=== PATIENT | female | born 1950 | race Caucasian/White ===

== ENCOUNTER 2023-11-11 08:08 | Emergency (ER) | payer MEDICARE, SELFPAY ==
--- NOTE | ~2023-11-11 | CT_ITS ---
EXAMINATION: CT HEAD WITHOUT CONTRAST CT CERVICAL SPINE WITHOUT CONTRAST CLINICAL INFORMATION: 73-year-old female with dementia and fall in [facility] rule out fracture or bleed COMPARISON: None TECHNIQUE: CT of the head and cervical spine were performed without intravenous contrast. Multiplanar reformats were rendered and reviewed. This CT examination was performed using dose optimization techniques as appropriate, variously including the following: *Automated exposure control *Adjustment of mA and/or kV according to patient size (this includes techniques or standardized protocols for targeted exams where dose is matched to indication/reason for exam; i.e. extremities or head) *Use of iterative reconstruction technique DLP: 561 mGy-cm. FINDINGS: CT head: There is small subdural hematoma in the right parietal lobe, see images 37-53 series 5 No mass lesion or infarct is seen. Ventricles, sulci and cisterns are prominent due to global atrophy. There are patchy periventricular white matter changes as a sequela of microangiopathy. The visualized paranasal sinuses and mastoid air cells are clear. No evidence of fractures CT cervical spine: The cervical alignment is normal. The craniocervical junction is normal. There are multilevel degenerative changes in cervical spine with narrowing of C4-C5, C5-C6 627 intervertebral disc spaces and marginal spurring. No cervical spine fracture is seen. The paraspinal soft tissues are within normal limits. The partially imaged lung apices are clear. CT/CT head/brain wo IV con IMPRESSION: CT head: Small acute subdural hematoma along the right parietal lobe CT cervical spine: No cervical spine fracture or traumatic malalignment identified. Multilevel degenerative changes in cervical spine This critical result was discussed with Dr. Christiano Monahan at 11:05 AM on 11/11/2023 and it was ascertained that the content and urgency of the report was understood at the time of direct communication.
--- NOTE | ~2023-11-11 | CT_ITS ---
EXAMINATION: CT HEAD WITHOUT CONTRAST CT CERVICAL SPINE WITHOUT CONTRAST CLINICAL INFORMATION: 73-year-old female with dementia and fall in group home rule out fracture or bleed COMPARISON: None TECHNIQUE: CT of the head and cervical spine were performed without intravenous contrast. Multiplanar reformats were rendered and reviewed. This CT examination was performed using dose optimization techniques as appropriate, variously including the following: *Automated exposure control *Adjustment of mA and/or kV according to patient size (this includes techniques or standardized protocols for targeted exams where dose is matched to indication/reason for exam; i.e. extremities or head) *Use of iterative reconstruction technique DLP: 561 mGy-cm. FINDINGS: CT head: There is small subdural hematoma in the right parietal lobe, see images 37-53 series 5 No mass lesion or infarct is seen. Ventricles, sulci and cisterns are prominent due to global atrophy. There are patchy periventricular white matter changes as a sequela of microangiopathy. The visualized paranasal sinuses and mastoid air cells are clear. No evidence of fractures CT cervical spine: The cervical alignment is normal. The craniocervical junction is normal. There are multilevel degenerative changes in cervical spine with narrowing of C4-C5, C5-C6 627 intervertebral disc spaces and marginal spurring. No cervical spine fracture is seen. The paraspinal soft tissues are within normal limits. The partially imaged lung apices are clear. CT/CT cervical spine wo IV con IMPRESSION: CT head: Small acute subdural hematoma along the right parietal lobe CT cervical spine: No cervical spine fracture or traumatic malalignment identified. Multilevel degenerative changes in cervical spine This critical result was discussed with Dr. Christiano Monahan at 11:05 AM on 11/11/2023 and it was ascertained that the content and urgency of the report was understood at the time of direct communication.
[2023-11-11 08:12] VITALS: BP 125/72; BP 126/98; PULSE 67; PULSE 90; RESP 16; TEMP 36.6; O2SAT 96; O2SAT 969; BMI 22.4
[2023-11-11 08:26] VITALS: BP 125/72; PULSE 67; RESP 16; RESP 18; TEMP 36.6; O2SAT 96
--- NOTE | 2023-11-11 08:35 | PC.NURSE ---
patient arrives VIA EMS from [facility], per EMS staff went into patients room and patient was sitting on the floor next to her bed putting her shoes on, unknown if patient fell, unknown head strike, unknown LOC. patient states she wanted to put her shoes on so she sat on the floor to do so. per ems patient was recently discharged from hospital 2 weeks ago for altered mental status, has a history of dementia, brain bleed, and metabolic encepalopathy. patient arrives AxOx3, not offering any complaints at this time, no abrasions or bruising noted, no obvious deformities or injuries. respirations even and unlabored. denies any chest pain, dizziness, or headaches. patient states she usually uses a wheelchair to get around, and knows she should not be getting up on her own. patient moved from ED 1 to ED 22 for better visibility given fall risk and history of getting up. patient agreeable at this time to stay in bed and use call workman for any assistance. c collar placed by EMS r/t unknown mechanism of fall. patient noted to be incontinent of urine, pericare provided, patient placed in appropriate hospital attire, red socks and fall band placed. awaiting provider eval at this time
--- NOTE | 2023-11-11 08:59 | PC.NURSE ---
at bedside to toma
--- NOTE | 2023-11-11 09:01 | ED.FALL ---
HPI - Fall General Chief Complaint: Fall Stated Complaint: FALL FROM BED Time Seen by Provider: 11/11/23 08:55 Source: RN notes reviewed Mode of arrival: EMS Limitations: other (Patient has dementia and lacks insight as to why she has here in the emergency depart) History of Present Illness ED Provider: Dr. Christiano Monahan HPI Narrative: 73-year-old female with a history of dementia, metabolic encephalopathy, failure to thrive, subdural hematoma who was sent in from her assisted living facility, [facility] for evaluation of possible fall. There was no information provided from the assisted living facility information was obtained from the ED nursing note. Per EMS the patient was found sitting on the floor. Patient states she was trying to put her shoes on, she denied falling, denied loss of consciousness, denied head strike patient with history of dementia. At the time my evaluation the patient was oriented to person, she knew that she was in a nursing facility but lacks insight as to why she is here. She has no complaints. Related Data Allergies Allergy/AdvReac Type Severity Reaction Status Date / Time No Known Allergies Allergy Verified 11/11/23 08:22 [facility] Social History Social History Smoked in Last 30 Days: No Use of substances other than those prescribed or required for medical reasons: No Advance Directives: No Advance Directives Information Provided: Yes Do you have a plan to hurt others: No Plan Physical Exam Vital Signs: Vital Signs: Last Vital Signs Temp 97.9 F 11/11/23 08:26 Pulse 67 11/11/23 08:26 Resp 16 11/11/23 08:26 BP 125/72 11/11/23 08:26 Pulse Ox 96 11/11/23 08:26 O2 Del Method Room Air 11/11/23 08:26 BMI result Body Mass Index 22.4 Vital signs were normal. Exam: General: Awake, alert in no distress Head: Normocephalic, atraumatic EENT: PERRL, Lids normal, sclera normal, conjunctiva normal, nose normal , ears normal, throat without erythema or exudates Neck: Supple, tenderness palpation of cervical spine and left trapezius muscle, no spasm Lung: breath sounds symmetric, no wheezing, rales or rhonchi Chest: symmetric movement, nontender Heart: regular rate and rhythm, normal S1, S2 no murmurs or rubs Abdomen: soft, non-tender, nondistended, normal bowel sounds Back: no vertebral tenderness, no CVAT Extremities: no deformities, moves all extremities symmetrically Neuro: Awake, alert, oriented to person only, normal speech, cranial nerves intact, moves all extremities symmetrically Psych: Pleasant, cooperative Medical Decision Making Medical Decision Making [facility] Narrative: 73-year-old female with a history of dementia, metabolic encephalopathy, failure to thrive, subdural hematoma who presents emergency department for evaluation of an unwitnessed fall in her assisted living program. Patient has dementia and lacks insight as to why she has here in the emergency department. Patient's vital signs were normal. For physical examination did reveal cervical spine tenderness and tenderness palpation over the last her be these muscle. No obvious scalp hematomas or tenderness to her scalp with palpation. Differential diagnosis: ?Includes but is not limited to skull fracture, intracranial bleed, cervical fracture, neck sprain, trip and fall, electrolyte abnormalities, anemia, urine infection, arrhythmia Following evaluation was ordered:CBC, CMP, CK, lipase, urinalysis, 12 EKG Patient was initially treated with the following: Cardiac monitoring, pulse ox monitoring Course: 11:18 My interpretation patient's laboratory evaluation is as follows: CBC was normal. CMP was normal. Urinalysis was negative. I was contacted by the radiologist, the patient has a small subdural hematoma in the radiologist felt that the hematoma was acute. I did speak to the patient's son, Keena Montano . He states that the patient was recently at [facility] for similar presentation and was found to have a small subdural hematoma which did not require surgical intervention. Given this information, I do not think the patient needs be hospitalized at this time and can be discharged to her senior care facility. 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 Admission/Observation Consideration of admission/observation: Escalation of care including admission/observation considered Consult Healthcare Provider Management of the patient was discussed with: Jacquard Loom Weaver (Ralph radiologist, Dr. Dea Christensen) Lab Data [facility] Lab Attestation statement: I reviewed the patient's lab results. 11/11/23 09:49 11/11/23 09:49 Labs: Lab Results 11/11/23 11/11/23 Range/Units 09:49 10:13 WBC 7.4 (4.8-10.8) X10*3/uL RBC 4.62 (4.20-5.50) X10*6/uL Hgb 13.8 (12.0-16.0) g/dl Hct 41.2 (37.0-47.0) % MCV 89.2 (80.0-98.0) fL MCH 29.9 (27.0-33.0) pg MCHC 33.5 (31.0-35.0) g/dl RDW 12.2 (11.0-16.0) % Plt Count 246 (160-400) X10*3/uL MPV 10.2 (9.4-12.3) fL Immature Gran % (Auto) 0.3 (0.0-0.4) % Neut % (Auto) 76.6 H (45-73) % Lymph % (Auto) 17.7 L (20-40) % [place] % (Auto) 4.3 (2-11) % Eos % (Auto) 0.7 (0-4) % Baso % (Auto) 0.4 (0-2) % Lymph # (Auto) 1.3 (1.2-4.9) X10*3/uL [place] # (Auto) 0.3 (0.1-1.2) X10*3/uL Eos # (Auto) 0.1 (0.0-0.4) X10*3/uL Baso # (Auto) 0.0 (0.0-0.2) X10*3/uL Abs Immat Gran (auto) 0.02 (0.00-0.03) X10*3/uL Absolute Neuts (auto) 5.7 (2.0-8.3) x10*3/uL Absolute Nucleated RBC 0.000 (0.0-0.012) X10*3/uL Nucleated RBC % (auto) 0.0 (0.0-0.2) /100WBC Sodium 140 (135-145) mmol/L Potassium 4.0 (3.3-5.1) mmol/L Chloride 106 (96-108) mmol/L Carbon Dioxide 26 (22-29) mmol/L Anion Gap 12 (12-20) BUN 13 (9-16) mg/dL Creatinine 0.70 (0.5-1.4) mg/dL Estim Creat Clear Calc 63.6 Estimated GFR > 60 Random Glucose 95 (60-115) mg/dL Calcium 9.3 (8.4-10.2) mg/dL Total Bilirubin 0.5 (0.0-1.0) mg/dL AST 16 (5-31) U/L ALT 12 (0-31) U/L Alkaline Phosphatase 94 (39-117) U/L Total Creatine Kinase 63 (26-140) U/L Total Protein 7.1 (6.5-8.0) g/dL Albumin 4.1 (3.5-5.0) g/dL Lipase 17 (8-78) U/L Urine Color Yellow Urine Appearance Clear Urine pH 5.5 (5.0-9.0) Ur Specific [place] 1.020 (1.005-1.025) Urine Protein Negative (Neg-Trace) mg/dL Urine Glucose (UA) Negative (Negative) mg/dL Urine Ketones 40 (Negative) mg/dL Urine Blood Negative (Negative) Urine Nitrite Negative (Negative) Ur Leukocyte Esterase Negative (Negative) Independent Interpretation I performed an independent interpretation of an: EKG Interpretation: My interpretation patient's 12 EKG done at 09:36 hours is as follows: Normal sinus rhythm rate of 71, normal [place] interval, QRS duration QTC interval, Q-waves in lead 3 and AVF, no PACs, no PVCs, no significant T-wave abnormalities Radiology Impression Discussion of test interpretation with radiology: I have reviewed the radiologist's reading. Radiologist Impression: CT head/brain and cervical spine wo IV con IMPRESSION: CT head: Small acute subdural hematoma along the right parietal lobe CT cervical spine: No cervical spine fracture or traumatic malalignment identified. Multilevel degenerative changes in cervical spine This critical result was discussed with Dr. Christiano Monahan at 11:05 AM on 11/11/2023 and it was ascertained that the content and urgency of the report was understood at the time of direct communication. Dictated By: Dea Christensen MD Critical Care Time Critical Care Time Critical Care Time: Yes Total Critical Care Time: 35 Attestation: Critical Care: The patient was critically ill with a high probability of imminent or life threatening deterioration. I spent greater than 30 minutes of discontinuous time evaluating the patient,delivering critical care at the bedside, discussing and evaluating pertinent data with consultants. Critical care time does not include time spent performing separately billable procedures or teaching. Total time spent performing critical care was 35 minutes. Discharge Plan Discharge Clinical Impression: Fall, Subacute subdural hematoma Patient Disposition: Home, Self-Care Additional Instructions: Your blood work was normal Your EKG was unremarkable. Your urinalysis was normal as well. 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 The CT scan of your head without IV contrast did reveal a small subdural hematoma along the right parietal lobe of your brain. Based on my conversation with your son, this subdural hematoma is not new and you do not need to be hospitalized for this at this time. Continue taking medications as prescribed by your providers Follow-up with your doctor in 2 days. Please return to the emergency department if your symptoms get worse or if you develop any symptoms that are concerning to you. Print Language: Occitan
--- NOTE | 2023-11-11 09:13 | ECG_ITS ---
Test Reason : fall Blood Pressure : / mmHG Vent. Rate : 071 BPM Atrial Rate : 071 BPM P-R Int : 182 ms QRS Dur : 076 ms QT Int : 390 ms P-R-T Axes : -01 -22 008 degrees QTc Int : 423 ms Normal sinus rhythm Normal ECG No previous ECGs available Referred By: Christiano Monahan Electronically Signed By:GALILEA BARROS
--- OUTSIDE RECORDS SUMMARY | 2023-11-11 09:19 | XMS_ITS | Continuity of Care Document ---
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 about your company's policies on smoking. ??? Your workplace should have a policy smoking areas from nonsmoking areas. ??? Smoking areas should have a system for ventilating and cleaning the air. Where to find more information Centers for Disease Control and Prevention (CDC): https://www.cdc.gov/tobacco/ [place] [employer]: https://www.cancer.org [place] [employer]: https://www.heart.org Summary ??? Secondhand smoke is smoke that comes from burning tobacco. Secondhand smoke exposes you to the dangers of smoking, even if you are not the one smoking. ??? There is no safe level of secondhand smoke. Several chemicals in secondhand smoke are known to cause cancer. Secondhand smoke can also cause many other health problems. ??? To prevent exposure to secondhand smoke, do not smoke, discourage others from smoking, keep your home and car smoke-free, and avoid places where smoking is allowed. This information is not intended to replace advice given to you by your health care provider. Make sure you discuss any questions you have with your health care provider. Document Revised: 01/16/2020 Document Reviewed: 06/01/2018 [employer] Patient Education ?? 2021 [place]. 10/12/2021 16:11:39 Fall Prevention in the Home, Adult Fall Prevention in the Home, Adult Falls can cause injuries and can affect people from all age groups. There are many simple things that you can do to make your home safe and to help prevent falls. Ask for help when making these changes, if needed. What actions can I take to prevent falls? General instructions ??? Use good lighting in all rooms. Replace any light bulbs that burn out. ??? Turn on lights if it is dark. Use night-lights. ??? Place frequently used items in qkts-sm-mwtsm places. Lower the shelves around your home if necessary. ??? Set up furniture so that there are clear paths around it. Avoid moving your furniture around. ??? Remove throw rugs and other tripping hazards from the floor. ??? Avoid walking on wet floors. ??? Fix any uneven floor surfaces. ??? Add color or contrast paint or tape to grab bars and handrails in your home. Place contrasting color strips on the first and last steps of stairways. ??? When you use a stepladder, make sure that it is completely opened and that the sides are firmlylocked. Have someone hold the ladder while you are using it. Do not climb a closed stepladder. ??? Be aware of any and all pets. What can I do in the bathroom? Keep the floor dry. Immediately clean up any water that spills onto the floor. ??? Remove soap buildup in the tub or shower on a regular basis. ??? Use non-skid mats or decals on the floor of the tub or shower. ??? Attach bath mats securely with double-sided, non-slip rug tape. ??? If you need to sit down while you are in the shower, use a plastic, non-slip stool. ??? Install grab bars by the toilet and in the tub and shower. Do not use towel bars as grab bars. What can I do in the bedroom? Make sure that a bedside light is easy to reach. ??? Do not use oversized bedding that drapes onto the floor. ??? Have a firm chair that has side arms to use for getting dressed. What can I do in the kitchen? Clean up any spills right away. ??? If you need to reach for something above you, use a sturdy step stool that has a grab bar. ??? Keep electrical cables out of the way. ??? Do not use floor tunisian or wax that makes floors slippery. If you must use wax, make sure that it is non-skid floor wax. What can I do in the stairways? Do not leave any items on the stairs. ??? Make sure that you have a light switch at the top of the stairs and the bottom of the stairs. Have them installed if you do not have them. ??? Make sure that there are handrails on both sides of the stairs. Fix handrails that are broken or loose. Make sure that handrails are as long as the stairways. ??? Install non-slip stair treads on all stairs in your home. ??? Avoid having throw rugs at the top or bottom of stairways, or secure the rugs with carpet tape to prevent them from moving. ??? Choose a carpet design that does not hide the edge of steps on the stairway. ??? Check any carpeting to make sure that it is firmly attached to the stairs. Fix any carpet that is loose or worn. What can I do on the outside of my home? Use bright outdoor lighting. ??? Regularly repair the edges of walkways and driveways and fix any cracks. ??? Remove high doorway thresholds. ??? Trim any shrubbery on the main path into your home. ??? Regularly check that handrails are securely fastened and in good repair. Both sides of any steps should have handrails. ??? Install guardrails along the edges of any raised decks or porches. ??? Clear walkways of debris and clutter, including tools and rocks. ??? Have leaves, snow, and ice cleared regularly. ??? Use sand or salt on walkways during winter months. ??? In the garage, clean up any spills right away, including grease or oil spills. What other actions can I take? Wear closed-toe shoes that fit well and support your feet. Wear shoes that have rubber soles orlow heels. ??? Use mobility aids as needed, such as canes, walkers, scooters, and crutches. ??? Review your medicines with your health care provider. Some medicines can cause dizziness or changes in blood pressure, which increase your risk of falling. Talk with your health care provider about other ways that you can decrease your risk of falls. Thismay include working with a physical therapist or resident athletic trainer to improve your strength, balance, and endurance. Where to find more information ??? Centers for Disease Control and Prevention, [place]: https://www.cdc.gov ??? National [place] [employer] Aging: https://rg3aixn.jas.nih.gov Contact a health care provider if: ??? You are afraid of falling at home. ??? You feel weak, drowsy, or dizzy at home. ??? You fall at home. Summary ??? There are many simple things that you can do to make your home safe and to help prevent falls. ??? Ways to make your home safe include removing tripping hazards and installing grab bars in the bathroom. ??? Ask for help when making these changes in your home. This information is not intended to replace advice given to you by your health care provider. Make sure you discuss any questions you have with your health care provider. Document Revised: 04/07/2018 Document Reviewed: 12/08/2017 [employer] Patient Education ?? 2020 [employer] 10/12/2021 16:11:39 Confusion Confusion Confusion is the inability to think with your usual speed or clarity. Confusion can be caused by many things. People who are confused often describe their thinking as cloudy or unclear. Confusion canalso include feeling disoriented. This means you are unaware of where you are or who you are. You may also not know the date or time. When confused, you may have trouble remembering, paying attention, or making decisions. Some people also act aggressively when they are confused. In some cases, confusion may come on quickly. In other cases, it may develop slowly over time. Confusion may be caused by medical conditions such as: ??? Infections, such as a urinary tract infection (UTI). ??? Low levels of oxygen, which can develop from conditions such as long-term lung disorders. ??? Decrease in brain function due to dementia and other conditions that affect the brain, such as seizures, strokes, brain tumors, or head injuries. ??? Mental health conditions, like panic attacks, anxiety, depression, and hallucinations. Confusion may also be caused by physical factors such as: ??? Loss of fluid (dehydration) or an imbalance of salts and minerals in the body (electrolytes). ??? Lack of certain nutrients like niacin, thiamine, or other B vitamins. ??? Fever or hypothermia, which is a sudden drop in body temperature. ??? Low or high blood sugar. ??? Low or high blood pressure. Other causes include: ??? Lack of sleep or changes in routine or surroundings, such as when traveling or staying in a hospital. ??? Using too much alcohol, drugs, or medicine. ??? Side effects of medicines, or taking medicines that affect other medicines (drug interactions). Follow these instructions at home: Pay attention to your symptoms. Tell your health care provider about any changes or if you develop new symptoms. Follow these instructions to control or treat symptoms. Ask a family member or friend for help if needed. Medicines ??? Take nvuk-rcb-tinywga and prescription medicines only as told by your health care provider. ??? Ask your health care provider about changing or stopping any medicines that may be causing yourconfusion. ??? Avoid pain medicines or sleep medicines until you have fully recovered. ??? Use a pillbox or an alarm to help you take the right medicines at the right time. Lifestyle ??? Eat a balanced diet that includes fruits and vegetables. ??? Get enough sleep. For most adults, this is 7???9 hours each night. ??? Do not drink alcohol. ??? Do not become isolated. Spend time with other people and make plans for your days. ??? Do not drive until your health care provider says that it is safe to do so. ??? Do not use any products that contain nicotine or tobacco, such as cigarettes, e-cigarettes, andchewing tobacco. If you need help quitting, ask your health care provider. ??? Stop other activities that may increase your chances of getting hurt. These may include some work duties, sports activities, swimming, or bike riding. Ask your health care provider what activities are safe for you. Tips for caregivers ??? Find out if the person is confused. Ask the person to state his or her name, age, and the date.If the person is unsure or answers incorrectly, he or she may be confused and need assistance. ??? Always introduce yourself, no matter how well the person knows you. Remind the person of his orher location. ??? Place a calendar and clock near the person who is confused. Keep a regular schedule. Make sure the person has plenty of light during the day and sleep at night. ??? Talk about current events and plans for the day. ??? Keep the environment calm, quiet, and peaceful. ??? Help the person do the things that he or she is unable to do. These include: ??? Taking medicines. ??? Keeping medical appointments. ??? Helping with household duties, including meal preparation. ??? Running errands. ??? Get help if you need it. There are several support groups for caregivers. If the person you arehelping needs more support, consider day care, extended-care programs, or a care home facility. The person's health care provider may be able to help evaluate these options. General instructions ??? Monitor yourself for any conditions you may have. These can include: ??? Checking your blood glucose levels if you have diabetes. ??? Maintaining a healthy weight. ??? Monitoring your blood pressure if you have hypertension. ??? Monitoring your body temperature if you have a fever. ??? Keep all follow-up visits. This is important. Contact a health care provider if: ??? You have new symptoms or your symptoms get worse. Get help right away if you: ??? Feel that you are not able to care for yourself. ??? Develop severe headaches, repeated vomiting, seizures, blackouts, or slurred speech. ??? Have increasing confusion, weakness, numbness, restlessness, or personality changes. ??? Develop a loss of balance, have marked dizziness, feel uncoordinated, or fall. ??? Develop severe anxiety, or you have delusions or hallucinations. These symptoms may represent a serious problem that is an emergency. Do not wait to see if the symptoms will go away. Get medical help right away. Call your local emergency services (911 in the [place] Do not drive yourself to the hospital. Summary ??? Confusion is the inability to think with your usual speed or clarity. People who are confused often describe their thinking as cloudy or unclear. ??? Confusion can also include having trouble remembering, paying attention, or making decisions. ??? Confusion may come on quickly or develop slowly over time, depending on the cause. There are many different causes of confusion. ??? Ask for help from family members or friends if you are unable to take care of yourself. This information is not intended to replace advice given to you by your health care provider. Make sure you discuss any questions you have with your health care provider. Document Revised: 08/19/2020 Document Reviewed: 08/19/2020 [employer] Patient Education ?? 2021 [employer] 10/12/2021 16:11:39 Failure to Thrive, Adult, Tpap-bp-[id number] Failure to Thrive, Adult Failure to thrive is a group of symptoms that affect adults, including the elderly. These symptoms include eating too little and losing weight. People who have this may not want to be with friends, or they may not want to eat or drink. This condition is not a normal part of getting older. What are the causes? A disease, such as dementia, diabetes, cancer, or lung disease. ??? A health problem, such as a vitamin deficiency or a heart problem. ??? A disorder, such as sadness (depression). ??? A disability. ??? Medicines. ??? Having tooth or mouth problems. ??? Neglect or being treated badly. ??? In some cases, the cause may not be known. What are the signs or symptoms? Loss of more than 5% of your body weight. ??? Being more tired than normal after an activity. ??? Having trouble getting up after sitting. ??? Not feeling hungry. ??? Not getting out of bed. ??? Not wanting to do your normal activities. ??? Sadness. ??? Getting infections often. ??? Bedsores. ??? Taking a long time to get better after an infection, injury, or a surgery. ??? Weakness. How is this treated? Treatment for this condition depends on the cause. It may be treated by: ??? Treating a disease or disorder that is causing symptoms. ??? Having talk therapy or taking medicine to treat sadness. ??? Eating better, such as eating more often or taking nutritional supplements. ??? Changing or stopping a medicine. ??? Having physical or occupational therapy. It often takes a team of doctors to find the right treatment. Follow these instructions at home: ??? Take ytsr-rxy-ohnkitb and prescription medicines only as told by your doctor. ??? Eat a healthy diet. Make sure that you eat enough. Ask your doctor how much you should eat. ??? Be active. Do exercises that make you stronger (strength training). A physical therapist can help to set up a program that fits you. ??? Make sure that you are safe at home. ??? Have a plan for what to do if you cannot make decisions for yourself. Contact a doctor if you: ??? Are not able to eat well. ??? Are not able to move around. ??? Feel very sad. ??? Feel very hopeless. Get help right away if: ??? You think about ending your life. ??? You cannot eat or drink. ??? You do not get out of bed. ??? Staying at home is not safe. ??? You have a fever. Summary ??? Failure to thrive is a group of symptoms that affect adults, including the elderly. ??? Symptoms include eating too little and losing weight. ??? Take all medicines only as told by your doctor. ??? Eat a healthy diet. Make sure that you eat enough. Ask your doctor how much you should eat. ??? Be active. Do exercises that make you stronger. A physical therapist can help to set up a program that is right for you. This information is not intended to replace advice given to you by your health care provider. Make sure you discuss any questions you have with your health care provider. Document Revised: 12/26/2018 Document Reviewed: 12/26/2018 [employer] Patient Education ?? 2021 [employer] 10/09/2021 03:12:03 Wound Care, Adult Wound Care, Adult Taking care of your wound properly can help to prevent pain, infection, and scarring. It can also help your wound heal more quickly. Follow instructions from your health care provider about how to care for your wound. Supplies needed: ??? Soap and water. ??? Wound cleanser. ??? Gauze. ??? If needed, a clean bandage (dressing) or other type of wound dressing material to cover or place in the wound. Follow your health care provider's instructions about what dressing supplies to use. ??? Cream or ointment to apply to the wound, if told by your health care provider. How to care for your wound Cleaning the wound Ask your health care provider how to clean the wound. This may include: ??? Using mild soap and water or a wound cleanser. ??? Using a clean gauze to pat the wound dry after cleaning it. Do not rub or scrub the wound. Dressing care ??? Wash your hands with soap and water for at least 20 seconds before and after you change the dressing. If soap and water are not available, use hand combination machine tool operator. ??? Change your dressing as told by your health care provider. This may include: ??? Cleaning or rinsing out (irrigating) the wound. ??? Placing a dressing over the wound or in the wound (packing). ??? Covering the wound with an outer dressing. ??? Leave any stitches (sutures), skin glue, or adhesive strips in place. These skin closures may need to stay in place for 2 weeks or longer. If adhesive strip edges start to loosen and curl up, youmay trim the loose edges. Do not remove adhesive strips completely unless your health care providertells you to do that. ??? Ask your health care provider when you can leave the wound uncovered. Checking for infection Check your wound area every day for signs of infection. Check for: ??? More redness, swelling, or pain. ??? Fluid or blood. ??? Warmth. ??? Pus or a bad smell. Follow these instructions at home Medicines ??? If you were prescribed an antibiotic medicine, cream, or ointment, take or apply it as told by your health care provider. Do not stop using the antibiotic even if your condition improves. ??? If you were prescribed pain medicine, take it 30 minutes before you do any wound care or as told by your health care provider. ??? Take apmf-sce-wyygwcx and prescription medicines only as told by your health care provider. Eating and drinking ??? Eat a diet that includes protein, vitamin A, vitamin C, and other nutrient- rich foods to help the wound heal. ??? Foods rich in protein include meat, fish, eggs, dairy, beans, and nuts. ??? Foods rich in vitamin A include carrots and dark green, leafy vegetables. ??? Foods rich in vitamin C include citrus fruits, tomatoes, broccoli, and peppers. ??? Drink enough fluid to keep your urine pale yellow. General instructions ??? Do not take baths, swim, use a hot tub, or do anything that would put the wound underwater until your health care provider approves. Ask your health care provider if you may take showers. You mayonly be allowed to take sponge baths. ??? Do not scratch or pick at the wound. Keep it covered as told by your health care provider. ??? Return to your normal activities as told by your health care provider. Ask your health care provider what activities are safe for you. ??? Protect your wound from the sun when you are outside for the first 6 months, or for as long as told by your health care provider. Cover up the scar area or apply sunscreen that has an SPF of at least 30. ??? Do not use any products that contain nicotine or tobacco, such as cigarettes, e-cigarettes, andchewing tobacco. These may delay wound healing. If you need help quitting, ask your health care provider. ??? Keep all follow-up visits as told by your health care provider. This is important. Contact a health care provider if: ??? You received a tetanus shot and you have swelling, severe pain, redness, or bleeding at the injection site. ??? Your pain is not controlled with medicine. ??? You have any of these signs of infection: ??? More redness, swelling, or pain around the wound. ??? Fluid or blood coming from the wound. ??? Warmth coming from the wound. ??? Pus or a bad smell coming from the wound. ??? A fever or chills. ??? You are nauseous or you vomit. ??? You are dizzy. Get help right away if: ??? You have a red streak of skin near the area around your wound. ??? Your wound has been closed with alejandro, sutures, skin glue, or adhesive strips and it begins to open up and separate. ??? Your wound is bleeding, and the bleeding does not stop with gentle pressure. ??? You have a rash. ??? You faint. ??? You have trouble breathing. These symptoms may represent a serious problem that is an emergency. Do not wait to see if the symptoms will go away. Get medical help right away. Call your local emergency services (911 in the [place] Do not drive yourself to the hospital. Summary ??? Always wash your hands with soap and water for at least 20 seconds before and after changing your dressing. ??? Change your dressing as told by your health care provider. ??? To help with healing, eat foods that are rich in protein, vitamin A, vitamin C, and other nutrients. ??? Check your wound every day for signs of infection. Contact your health care provider if you suspect that your wound is infected. This information is not intended to replace advice given to you by your health care provider. Make sure you discuss any questions you have with your health care provider. Document Revised: 02/08/2020 Document Reviewed: 02/08/2020 [employer] Patient Education ?? 2021 [employer] 10/09/2021 03:12:03 Fall Prevention in the Home, Adult, Ddyx-mo-Akmr Fall Prevention in the Home, Adult Falls can cause injuries and can happen to people of all ages. There are many things you can do to make your home safe and to help prevent falls. Ask for help when making these changes. What actions can I take to prevent falls? General Instructions ??? Use good lighting in all rooms. Replace any light bulbs that burn out. ??? Turn on the lights in dark areas. Use night-lights. ??? Keep items that you use often in kcup-px-utdgb places. Lower the shelves around your home if needed. ??? Set up your furniture so you have a clear path. Avoid moving your furniture around. ??? Do not have throw rugs or other things on the floor that can make you trip. ??? Avoid walking on wet floors. ??? If any of your floors are uneven, fix them. ??? Add color or contrast paint or tape to clearly keila and help you see: ??? Grab bars or handrails. ??? First and last steps of staircases. ??? Where the edge of each step is. ??? If you use a stepladder: ??? Make sure that it is fully opened. Do not climb a closed stepladder. ??? Make sure the sides of the stepladder are locked in place. ??? Ask someone to hold the stepladder while you use it. ??? Know where your pets are when moving through your home. What can I do in the bathroom? Keep the floor dry. Clean up any water on the floor right away. ??? Remove soap buildup in the tub or shower. ??? Use nonskid mats or decals on the floor of the tub or shower. ??? Attach bath mats securely with double-sided, nonslip rug tape. ??? If you need to sit down in the shower, use a plastic, nonslip stool. ??? Install grab bars by the toilet and in the tub and shower. Do not use towel bars as grab bars. What can I do in the bedroom? Make sure that you have a light by your bed that is easy to reach. ??? Do not use any sheets or blankets for your bed that hang to the floor. ??? Have a firm chair with side arms that you can use for support when you get dressed. What can I do in the kitchen? Clean up any spills right away. ??? If you need to reach something above you, use a step stool with a grab bar. ??? Keep electrical cords out of the way. ??? Do not use floor tunisian or wax that makes floors slippery. What can I do with my stairs? Do not leave any items on the stairs. ??? Make sure that you have a light switch at the top and the bottom of the stairs. ??? Make sure that there are handrails on both sides of the stairs. Fix handrails that are broken or loose. ??? Install nonslip stair treads on all your stairs. ??? Avoid having throw rugs at the top or bottom of the stairs. ??? Choose a carpet that does not hide the edge of the steps on the stairs. ??? Check carpeting to make sure that it is firmly attached to the stairs. Fix carpet that is looseor worn. What can I do on the outside of my home? Use bright outdoor lighting. ??? Fix the edges of walkways and driveways and fix any cracks. ??? Remove anything that might make you trip as you walk through a door, such as a raised step or threshold. ??? Trim any bushes or trees on paths to your home. ??? Check to see if handrails are loose or broken and that both sides of all steps have handrails. ??? Install guardrails along the edges of any raised decks and porches. ??? Clear paths of anything that can make you trip, such as tools or rocks. ??? Have leaves, snow, or ice cleared regularly. ??? Use sand or salt on paths during winter. ??? Clean up any spills in your garage right away. This includes grease or oil spills. What other actions can I take? Wear shoes that: ??? Have a low heel. Do not wear high heels. ??? Have rubber bottoms. ??? Feel good on your feet and fit well. ??? Are closed at the toe. Do not wear open-toe sandals. ??? Use tools that help you move around if needed. These include: ??? Canes. ??? Walkers. ??? Scooters. ??? Crutches. ??? Review your medicines with your doctor. Some medicines can make you feel dizzy. This can increase your chance of falling. Ask your doctor what else you can do to help prevent falls. Where to find more information ??? Centers for Disease Control and Prevention, STEADI: www.cdc.gov ??? National [place] on Aging: www.jas.nih.gov Contact a doctor if: ??? You are afraid of falling at home. ??? You feel weak, drowsy, or dizzy at home. ??? You fall at home. Summary ??? There are many simple things that you can do to make your home safe and to help prevent falls. ??? Ways to make your home safe include removing things that can make you trip and installing grab bars in the bathroom. ??? Ask for help when making these changes in your home. This information is not intended to replace advice given to you by your health care provider. Make sure you discuss any questions you have with your health care provider. Document Revised: 11/26/2020 Document Reviewed: 11/26/2020 [employer] Patient Education ?? 2021 [place]. 10/09/2021 03:12:03 Fall Prevention in Hospitals, Adult Fall Prevention in Hospitals, Adult Being a patient in the hospital puts you at risk for falling. Falls can cause serious injury and harm, but they can be prevented. It is important to understand what puts you at risk for falling and what you and your health care team can do to prevent you from falling. If you or a loved one falls atthe hospital, it is important to tell hospital staff about it. What increases the risk for falls? Certain conditions and treatments may increase your risk of falling in the hospital. These include: ??? Being in an unfamiliar environment, especially when using the bathroom at night. ??? Having surgery. ??? Being on bed rest. ??? Taking many medicines or certain types of medicines, such as sleeping pills. ??? Having tubes in place, such as IV lines or catheters. Other risk factors for falls in a hospital include: ??? Having difficulty with hearing or vision. ??? Having a change in thinking or behavior, such as confusion. ??? Having depression. ??? Having trouble with balance. ??? Being a male. ??? Feeling dizzy. ??? Needing to use the toilet frequently. ??? Having fallen during the past three months. ??? Having low blood pressure. What are some strategies for preventing falls? If you or a loved one has to stay in the hospital: ??? Ask about which fall prevention strategies will be in place. Do not hesitate to speak up if younotice that the fall prevention plan has changed. ??? Ask for help moving around, especially after surgery or when feeling unwell. ??? If you have been asked to call for help when getting up, do not get up by yourself. Asking for help with getting up is for your safety, and the staff is there to help you. ??? Wear nonskid footwear. ??? Get up slowly, and sit at the side of the bed for a few minutes before standing up. ??? Keep items you need, such as the nurse call button or a phone, close to you so that you do not need to reach for them. ??? Wear eyeglasses or hearing aids if you have them. ??? Have someone stay in the hospital with you or your loved one. ??? Ask if sleeping pills or other medicines that can cause confusion are necessary. What does the hospital staff do to help prevent falls? Hospitals have systems in place to prevent falls and accidents, which may involve: ??? Discussing your fall risks and making a personalized fall prevention plan. ??? Checking in regularly to see if you need help. ??? Placing an arm band on your wrist or a sign near your room to alert other staff of your needs. ??? Using an alarm on your hospital bed. This is an alarm that goes off if you get out of bed and forget to call for help. ??? Keeping the bed in a low and locked position. ??? Keeping the area around the bed and bathroom well-lit and free from clutter. ??? Keeping your room quiet, so that you can sleep and be well-rested. ??? Using safety equipment, such as: ??? A belt around your waist. ??? Walkers, crutches, and other devices for support. ??? Safety beds, such as low beds or cushions on the floor next to the bed. ??? Having a staff person stay with you (one-on-one observation), even when you are using the bathroom. This is for your safety. ??? Using video monitoring. This allows a staff member to come to help you if you need help. What other actions can I take to lower my risk of falls? Check in regularly with your health care provider or pharmacist to review all of the medicines that you take. ??? Make sure that you have a regular exercise program to stay fit. This will help you maintain your balance. ??? Talk with a physical therapist or resident athletic trainer if recommended by your health care provider. They canhelp you to improve your strength, balance, and endurance. ??? If you are over age 65: ??? Ask your health care provider if you need a calcium or vitamin D supplement. ??? Have your eyes and hearing checked every year. ??? Have your feet checked every year. Where to find more information You can find more information about fall prevention from the Centers for Disease Control and Prevention: www.cdc.gov/steadi Summary ??? Being in an unfamiliar environment, such as the hospital, increases your risk for falling. ??? If you have been asked to call for help when getting up, do not get up by yourself. Asking for help with getting up is for your safety, and the staff is there to help you. ??? Ask about which fall prevention strategies will be in place. Do not hesitate to speak up if younotice that the fall prevention plan has changed. ??? If you or a loved one falls, tell the hospital staff. This is important. This information is not intended to replace advice given to you by your health care provider. Make sure you discuss any questions you have with your health care provider. Document Revised: 04/07/2018 Document Reviewed: 12/07/2017 [employer] Patient Education ?? 2020 [employer] 10/09/2021 03:12:03 Hand Washing, [id number] Hand Washing Germs such as bacteria, viruses, and parasites are everywhere. Many of these germs can make you andyour family sick. Wash your hands often so you do not get or share germs. How to wash your hands the right way When should I wash my hands? Wash your hands when they are dirty. ??? Wash your hands before: ??? You visit a baby or someone with a weak disease-fighting system (immunesystem). ??? You put in or take out contact lenses. ??? Wash your hands after: ??? You use the bathroom or help someone use the bathroom. ??? You sneeze, cough, or blow your nose. ??? You work or play outside. ??? You touch any of these things: ??? Garbage or garbage bags. ??? Something dirty in your home. ??? Money or someone else's hands. ??? Dirty clothes, bedding, or rags. ??? You use any of these things: ??? A mobile phone or other phone. ??? Quantitative Associate or chemicals. ??? You touch or take care of animals. This includes touching their food, poop (stool), toys, or leashes. ??? You do these things away from home: ??? Take a bus, train, taxi, or ride-share. ??? Go shopping, especially with a shopping cart or basket. ??? Wash your hands before and after: ??? You touch your eyes, nose, or mouth. ??? You touch food. This includes when: ??? You prepare or eat food. ??? You prepare a bottle for a baby or young child. ??? You feed a baby or young child. ??? You visit or take care of someone who is sick. This includes touching used tissues, toys, clothes, and bedding. ??? You change a bandage or diaper. ??? You take care of an injury or wound. ??? You give or take medicine. What is the right way to wash my hands? 1. Wet your hands with clean, running water. Turn off the water or move your hands out of the water. 2. Put liquid soap or bar soap on your hands. 3. Rub your hands together fast to make suds. 4. Keep rubbing your hands together for at least 20 seconds. Scrub all parts of your hands well, both the fronts and backs. Scrub between your fingers and under your nails. 5. Rinse your hands with clean, running water. Do this until all the soap is gone. 6. Dry your hands. Do this with an air dryer or a clean paper or cloth towel, or let your hands air-dry. Do not dry your hands with your clothes or a dirty towel. If you are in a public restroom, use your towel to: ??? Turn off the water faucet. ??? Open the bathroom door. How can I clean my hands if I do not have soap and water? If you cannot use soap and clean water, use a hand-washing wipe, spray, or gel (hand combination machine tool operator). Use one that has at least 60% alcohol in it. Avoid using wipes, sprays, or gels in place of soap and water before you touch food. To use wipes, sprays, or gels, follow the directions on the product bottle, tube, or wrapper. Be sure to: ??? Use enough product to cover your hands. ??? Wipe, rub, or spray the product on all parts of your hands and wrists. Include the backs of your hands, between your fingers, and under your nails. ??? Rub your hands until they feel dry. Summary ??? Germs such as bacteria, viruses, and parasites are everywhere. ??? Many germs can make you and your family sick. ??? You should wash your hands often so you do not get or share germs. This information is not intended to replace advice given to you by your health care provider. Make sure you discuss any questions you have with your health care provider. Document Revised: 09/01/2020 Document Reviewed: 09/01/2020 Else[employer] Patient Education ?? 2021 [place]. 10/09/2021 03:12:03 [facility] (Eng) Admission Orientation (Custom) [address] [address] Admission Orientation Welcome to the [facility]. Together we will work to keep you well and teach you how to care for yourself. We will explain what to expect before, during and after your treatments andprocedures. You are a very important part of this. Please ask questions whenever you have concerns. While you are here, you will be getting education on many other topics that will be specific to your disease and treatments. Here are some important things that everyone needs to know about upon admission to our unit: CALL LIGHT The call light is on your television speaker and should be within your reach at all times. Use the call light to call your nurse when you have a question, concern, need help or need pain medication. There is also an Emergency Call Light in the Bathroom next to the toilet. BED CONTROLS Your bed controls are located on each of the side rails of your bed. You can move your head and feet up or down to make yourself more comfortable unless your doctor orders a certain position. Push the up or down arrow with the picture of the head to change the position of the head. Push the up or down arrow with the picture of the foot to change the position of the foot of the bed. TELEPHONE The telephone is located on the nightstand next to your bed. You must first dial 9 and then the number you wish to call. Our area code is 480. If you need to make a long distance call, you must dial ?? 0??? for the hospital mottle lay up operator to help you. [employer] TELEVISION / SERVICE REQUESTS We are pleased to provide you with [employer] interactive televisions. [employer] offers [employer] movies, relaxation videos, educational programming, digital television and radio, and much more. You will find all the controls for the system located on your pillow speaker. [employer] can also be used to request services during your stay. You may change the temperature in your room, request housekeeping, report a mechanical problem, request the visit of a oracle specialist, or provide us with your valuable feedback through this interactive system. The T.V. controls are also located on your pillow speaker. To turn it on, change channels or turn it off, press the button with the T.V. on it. Use the up and down arrows to change the volume. FALL PREVENTION WHILE IN THE HOSPITAL Your safety is important to us while you are in the hospital. Any hospitalized patient has a greater chance of falling than normal regardless of age. Please follow your nurse and physician???s instructions to reduce your risk of falling while you are in the hospital: VISITING HOURS We understand you want to visit your loved ones when it is convenient for you. Therefore, the hospital is open to visitors 24 hours a day, 7 days a week. During cold and flu season, we do restrict visitors as needed. VISITATION ??? You have the right to determine the individuals that will visit you during your hospitalization. You also may withdraw your consent for visitors at any time. ??? Visitation will not be restricted or limited on the basis of race, color, national origin, voodoo, sex, gender identity, sexual orientation, or disability. ??? You may designate a support person who will determine who may visit when you are unable or choose not to make that determination. This person may be different from your legal or healthcare power of privacy attorney. ??? Visitation will be restricted if it interferes with your care, the care of other patients, or for infection control reasons. NUTRITION/MEALS Your safety, health and nutrition are very important to us.?? Our cafeteria has a wide selection offoods for your family and visitors.?? We encourage you to use our in-room meal services and not eatin the cafeteria.?? Our food service clerk team is happy to work with you on your food choices and requests.?? Your doctor may want you to eat a specific diet and record what you eat and drink.?? Your nurse may be able to give you a Cafeteria Pass if you have no restrictions.?? For your safety, our cafeteria staff is not allowed to serve patients without a Cafeteria Pass signed by the nurse. RAISING CONCERNS/COMPLAINTS REGARDING YOUR CARE OR SAFETY You and your family are encouraged to raise concerns or complaints if you have them. Exercising your right to do this will not affect your healthcare services in any way. ??? If at anytime you have concerns about patient care or safety, please speak to the supervisor mold construction or Strap Machine Operator Automatic. ??? If they are unable to resolve your concern/complaint, you can call the Customer Communication line at [phone] or go to the contact section of our website at [employer]. ??? If your concerns are not satisfactorily resolved through the hospital, you may contact the Joint Commission or the Department of [facility] Services: ?? The Joint Commission: Mc or email [email or web address] ?? [facility] Services: [address] [place] [address] Website: [email or web address] FAMILY RAPID RESPONSE is a lifeline to immediate help when a patient or loved one feels the patient???s condition has worsened and the caregiver needs to provide additional, immediate medical attention. Dial [phone] from any hospital phone. PAIN MANAGEMENT Be familiar with the pain scale. A pain scale is a number scale to measure your pain. A rating of 0means you feel no pain at all, 5 means you feel a moderate amount of pain, and 10 means you feel the worst pain you can imagine. Your nurse or physician will teach you to describe the type and amountof pain you are having. 0 1 2 3 4 5 6 7 8 9 10 No Moderate Worst Pain Pain Pain Talk to your doctor or nurse if you: ??? are in pain ??? have questions about controlling your pain ??? have taken pain medicine and it is not working At [facility], we will work with you and your family to manage your pain. We believe that managing your pain is an important part of your care. PREVENTING INFECTION Five things you can do to prevent infection (such as colds, flu and strep throat). A Speak Up safety initiative by Joint Commission on Accreditation of Healthcare Organizations 1. Clean your hands. ??? Use soap and warm water. Wet hands and apply soap. Rub your hands really well for at least 15 seconds. Rinse and dry. Use paper towel to turn water off. ??? Or, if your hands do not look dirty, clean them with alcohol-based hand sanitizers. Rub the combination machine tool operator all over your hands, especially under your nails and between your fingers, until your hands are dry. Children should be supervised when using this product. ??? Clean your hands before touching or eating food. Clean them after you use the bathroom, take out the trash, change a diaper, visit someone who is ill, or play with a pet. Visitors and family members of patients should wash/clean their hands before entering the room to visit and any time they leave the room. 2. Make sure health care providers clean their hands and wear gloves. ??? Doctors, nurses, dentists and other health care providers come into contact with lots of bacteria and viruses. So before they treat you, ask them if they've cleaned their hands. ??? Health care providers should wear clean gloves when they perform tasks such as taking throat cultures, pulling teeth, taking blood, touching wounds or body fluids, and examining your private parts. Don't be afraid to gently remind them to wear gloves. 3. In the hospital, health care workers use ???barriers?? like gloves to protect the patients and themselves. ??? While in the hospital a patient may have a specific germ that can be spread to others. These germs can be viruses or bacteria that cause illness. ??? Some diseases and/or conditions require the use of additional barriers, like gowns and/or masksand Isolation Precautions. ??? Comply with additional isolation precautions. ??? Signs are posted on/at patient doors when additional precautions are needed. ??? All patients, visitors and staff are asked to follow the instructions posted on/at the patient door. ??? Please ask your nurse if you have additional questions. ??? Patients and families in isolation should not use the common kitchen area, but should ask health care workers for items that they need. 4. Cover your mouth and nose. Many diseases are spread through sneezes and coughs. When you sneeze or cough, the germs can travel 3 feet or more! Cover your mouth and nose to prevent the spread of infection to others. ??? Use a tissue! Keep tissues handy at home, at work and in your pocket. Be sure to throw away used tissues and then clean your hands. ??? If you don't have a tissue, cover your mouth and nose with the bend of your elbow or hands. If you use your hands, wash/clean them right away. 5. If you are sick, avoid close contact. ??? If you are sick, stay away from other people. Stay home if you have a fever. Call work or school and tell them you are sick. ??? When you go for medical treatment, call ahead and ask if there's anything you can do to avoid infecting people in the waiting room. These steps can help prevent the spread of colds, the flu, and diseases like pneumonia, and strep throat. Remember to stay current on your immunizations. PREVENTING BLOOD CLOTS AND VENOUS THOMBOEMBOLISM (VTE) What is thromboembolism? Blood flow is slower when the body is not active. This can cause clots to form in the blood. A blood clot in a blood vessel is called a thrombus. If the clot breaks loose and plugs another vessel, itis called thromboembolism. The blood clot can cause permanent injury to your body if it is not treated. Deep vein thrombosis (DVT) is a blood clot in one of the deep veins of the body, such as the leg orpelvis. This kind of clot can occur after surgery or long periods of bed rest. What are the signs and symptoms of deep vein thrombosis? Pain felt deep in the leg ??? Swelling and discoloration of the skin ??? Sudden onset of pain ??? Fever Pulmonary embolism (PE) is a serious condition where the arteries from the heart to the lungs are blocked. This happens when a blood clot travels to the lungs. Pulmonary embolism can be deadly, but quick treatment with anti-clotting medications can reduce the risk of . Preventing blood clots in your legs can help protect you against pulmonary embolism. What are the signs and symptoms of pulmonary embolism? Chest pain: May get worse with deep breathing, coughing, eating, and bending. ??? Cough: Begins suddenly, may cough up blood or blood-streaked sputum ??? Rapid breathing ??? Rapid heart rate ??? Shortness of breath, may occur at rest or during activity, starts suddenly Why is prevention important? Preventing clots is easier than treating them after they have happened. A blood clot can break off from the deep vein and travel to the lungs or other important organs. A blood clot can block blood flow to the tissues and ulcers or sores can result. How are deep vein thrombosis (DVT) and pulmonary embolus (PE) prevented? Wear compression stockings (GUICHO hose) if your doctor recommends them. These keep blood from pooling in your veins. ??? Wear a sleeve-like device on your legs (SCDs) after surgery to squeeze your legs and keep bloodflowing through your veins. The squeezing motion is similar to how your muscles squeeze your veins during normal walking. ??? Elevate the foot of your bed. ??? Get up and move as soon as you can after surgery, or after you've been ill. The quicker you getmoving, the less likely blood clots will develop. ??? Take pain medicine as prescribed to make it easier to move around. ??? If you're having surgery, such as orthopedic surgery, you may be given blood thinners or anticoagulant (anti-clotting) medicines. These medicines make the blood less able to clot and are sometimes called ???blood thinners???. They can block the formation of new clots and stop existing clots from getting bigger. ??? Exercise your muscles if you'll be sitting a long time. Whenever possible, get up and walk around. If you can't get up to walk around, try to exercise the feet by flexing, extending and rotating the foot. ??? Make lifestyle changes. Lose weight, quit smoking and control your blood pressure. Obesity, smoking and high blood pressure all increase your risk of deep vein thrombosis. ??? Limit the amount of salt you eat. Eat a high protein, low fat diet. ??? Do not wear constrictive clothing or stockings Call your doctor if you have: ??? Pain in the leg ??? Tenderness in the calf (this is one of the most important signs) ??? Swelling of the leg ??? Increased warmth of the leg ??? Redness in the leg ??? Bluish skin discoloration ??? Discomfort when the foot is pulled upward ??? Chest pain and/or cough ??? Rapid breathing ??? Rapid heart rate ??? Shortness of breath FROM THE TOOLING SUPERVISOR Spiritual Care Services providing emotional and spiritual support At [facility], we are committed to providing comprehensive care by embracing the whole person in body, mind and spirit. Board certified chaplains are available Tuesday - Tuesday 8 a.m.- 10:30 p.m. and Weekends 8 a.m. ??? 4:30 p.m. to all patients and their families to offer support across a wide array of diverse shivani traditions. Call Spiritual Care Services ??? To help you cope with feelings associated with diagnosis and treatment ??? If you find yourself asking ???why?? questions ??? For Sacramental needs, ritual and prayer ??? For grief and bereavement counseling ??? If you have discovered new possibilities in your life ??? During time of /loss ??? When you are struggling with forgiveness ??? To coordinate and collaborate with your shivani leader ??? To assist in decision making ??? To assist with advanced health care planning To contact a oracle specialist, ask your nurse to call Spiritual Care Services Department: Rotor Pilot: [phone] Licensed Plumber: [phone] We???re here to support your shivani, beliefs and values. STROKE/TIA(TRANSISCHEMIC ATTACK) INFORMATION If you have been diagnosed with a Stroke or TIA: 1. Call 911 immediately if you experience signs or symptoms of stroke as: ??? Sudden weakness or numbness of face, arms and leg usually on one side of the body. ??? Loss of vision, particularly in only one eye. ??? Sudden severe headache with no known cause. ??? Sudden trouble walking, dizziness, loss of balance or coordination, slurred speech. 2. Risk factors for stroke: ??? Age: The older you get the more likely you are to have a stroke. ??? Sex: and [place] men have a higher risk. ??? Prior Stroke: Already having a stroke makes you more likely to have another. ??? Family history: Family (parent, grandparents, brother, sister) with a history of stroke increases your risk. ??? You can control, treat or prevent some conditions to reduce your likelihood of stroke. High blood pressure, cigarette smoking, high cholesterol, Lack of regular physical activity, overweight, diabetes are all risk factors that can be changed. Cigarette Smoking Do you or someone you??live with??smoke??? If so, this is one of your??greatest health risk!?? Thisis a risk that you can control. The facts are clear that cigarette smoking will shorten your life. Smoking can cause many illnesses along the way. If you or someone you live with need help to quit smoking, talk to your regular doctor. Please contact one or more of the following agencies for smoking-cessation information or classes: ??? [facility] Tobacco Use Prevention Program- Telephone number: [phone] ??? [place] Smokers' Helpline:[phone] or access via website: [employer]G ??? [employer] Telephone number: [phone] ??? [employer] Follow Up Care 10/08/2021 19:05:00 With:Nohemi Milton DO Address: [address] [place] [id number]- When:1 to 3 days
--- OUTSIDE RECORDS SUMMARY | 2023-11-11 09:19 | XMS_ITS | Continuity of Care Document ---
Author Organization [facility] [place] Address [address] [place] [address]- Care Team Providers Care Solid Waste Manager Name Role Phone PCP, No Primary Care Physician Unavailab le Encounter EVSA_FIN [id number] Date(s): 10/12/21 - 10/29/21 [facility] [place] [address] [facility] [place] [address]- Encounter Diagnosis Acute intracranial hemorrhage(Discharge Diagnosis) - 10/15/21 Chronic subdural hematoma(Discharge Diagnosis) - 10/30/21 Gait instability(Discharge Diagnosis) - 10/29/21 Decreased oral intake(Discharge Diagnosis) - 10/29/21 Discharge Disposition: Home or Self Care Attending Physician: Jessica Leavitt MD Admitting Physician: Jessica Leavitt MD Allergies, Adverse Reactions, Alerts No Known Medication Allergies Substance Reaction Severity Status Valentine NAUSEA Mild Active Wheat Nausea Mild Active Assessment and Plan Extracted from: Title:Neuropsychology Consultation Author:Janneth Montenegro PsyD Date:10/16/21 Inpatient Neuropsychological Consultation Report Name: Saqib Mckeon : 1950 Sex: Female Age: 71 years Handedness: Right Education: 16 years Referring Physician: Jessica Leavitt MD Date of Evaluation: 10/14/2021& 10/16/2021 PROCEDURES: [id number] x 1 [id number] x 1 [id number] x 1 10/14/2021--Start time: 1:32 p.m. End time: 1:40 p.m. *Consultation had to be discontinued as the patient was scheduled for OT. 10/16/2021? Start time: 1:27 p.m. End time: 1:58 p.m. In addition to direct time spent during the clinical interview, neuropsychological test administration, and integrative feedback to the patient and/or caregivers, total time also includes the licensed psychologist? s time spent for chart review, scoring, interpretation of findings, coordination of care with staff and providers, and report preparation. History of present illness: According to medical records, the patient was admitted to the rehabilitation facility due to metabolic encephalopathy and concussion. The patient presented to [facility] after a GLF in which she sustained multiple subdural hematomas, primary one being a small R sided subdural hematoma without mass effect. The patient was noted to have superimposed delirium and metabolic encephalopathy with a baseline of potential cognitive impairment. For a comprehensive medical history and medication list, please refer to the patient? s chart. This patient was referred for a neuropsychological consultation to obtain a quantitative assessment of her current level of cognitive and emotional/behavioral functioning and aid in the formulation of individualized rehabilitation and management strategies. The facility is requesting the results be used to provide counseling, aid in adjustment to disability, and provide compensatory cognitive and behavioral techniques. I met with the patient alone in their private room on 10/16/2021 to complete the neuropsychology consultation initiated on 10/14/2021 to obtain clinical history, administer cognitive testing, and to provide support and psychoeducation. The patient provided verbal consent to participate in the evaluation after introduction and reason for consult was provided. The patient? s son was present for the initial encounter on 10/14/2021 with obtained verbal consent from the patient and assisted with providing and confirming background information. The patient? s son flew back to [place] on 10/14/2021. Current Symptoms: Cognitive: The patient did not report any changes in cognition following the fall. The patient? s son noted there has been evidence of cognitive decline over the past year with more noticeable decline after the recent fall. ADLs: The patient was independent in grooming/personal hygiene, dressing, toileting/continence, transferring/ambulating, and eating prior to the fall. The patient does not drive and noted her son assists with her finances. Emotional/Behavioral: The patient described her mood as ? bruna? . She did not report any issues with depression or anxiety. There was no report of current or past suicidal ideation, hallucinations, or delusions. Appetite is adequate. Sleep: No issues with sleep were noted. Pain: No issues with pain were noted. Substance use: The patient reported she does not consume alcohol, nor does not use tobacco products or recreational drugs. Social/Educational: The patient was born and raised in [place]. The patient earned a bachelor? 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 The patient has 2 sons (1 resides in [place] and the other in [place]). The patient reportedly lived alone prior to the fall. Her son mentioned they were considering moving her to [place] to live in a 24-hour care facility near his home. The patient stated she spends her time on [employer]. Behavioral Observations: The patient was pleasant in demeanor. Mood was generally euthymic with congruent affect. The patient was observed to have rapid memory loss and attentional issues as she would ask what was said nearly immediately after the question/instruction was given with no apparent recollection of what had just been said. She also had difficulty comprehending task instructions and required questions or instructions to be repeated often. The patient perseverated on her experience at the rehabilitation facility and repeatedly expressed her satisfaction with her experience thus far. She also commented frequently on her son who resides in [place] and how he has a new baby and other topics. She was tangential in her approach to answers and would ask for clarity of questions or instructions when needed, however, despite the instructions or question being repeated, she would continue to demonstrate difficulty with comprehension of what was said. The patient would provide answers that were not appropriate to the content discussed and would require redirection or repetition of the question/instruction. Speech was slightly slurred and halted in nature. She had delayed response latency as she appeared to have a slowed speed of processing. She was also observed to become distracted easily with her computer screen in the room that had family photos on it and also would appear to have ? zoning out? moments that resulted in her asking what had been said as she did not hear it. Volume of speech was normal. Modifications were made to the battery due to exhibited cognitive and language issues. The patient was cooperative throughout the examination and completed all administered tasks to which she was capable. Tests administered: Cognistat, Oral Ferguson Making Test-Parts A and B, Clock Drawing Task, Geriatric Depression Scale 15 (GDS15), and clinical interview. Evaluation Findings: Mental Status: The patient was awake and alert. She was not oriented to age (?), date (?), day of the week (Tuesday), and time (?). Cognitive Screening: Attention: The patient was able to sustain basic attention. She was able to repeat up to 4 digits forward, which was in the moderately impaired range. She completed a task assessing sustained attention in 24 seconds, which was in the exceptionally low range (T-score<20). Executive Functioning: A sequential set-shifting task was discontinued as the patient had difficulty understanding task instructions. The patient performed in the moderately impaired range on a basic arithmetic task. Performance was in the severely impaired range for tasks requiring basic concept formation/abstraction and basic judgment/problem-solving ability. Language: The patient was able to name 7/8 objects on a confrontation naming task. She identified 1 additional item with the aid of a phonemic cue. Sentence repetition was in the mildly impaired range. She was able to follow up to 1-step verbal and imitation commands with difficulty. Learning/Memory: The memory subtest on the Cognistat was discontinued due to the patient being unable to successfully recall the 4 words 2 consecutive times after 8 trials. This suggests memory is severely impaired. Visuospatial Functioning: On the clock drawing test, the patient? s drawing included all necessary numbers. Placement was poor and as a result she was unable to draw the clock hands. Emotional/Behavioral: The patient? s responses on the GDS-15 yielded a total score of 0/15, which indicates they are not experiencing depressive symptoms. Impression: On my examination, the patient demonstrated diffuse cognitive impairment across cognitive domains. Given the patient is suspected to have prior cognitive impairment in addition to superimposed delirium and metabolic encephalopathy in conjunction with a recent head injury, it is difficult to determine the level of cognitive decline from her premorbid level of functioning. The patient would benefit from continued participation in rehabilitative therapies to assist with achieving cognitive gains during her recovery process, which will hopefully be demonstrated over the coming weeks and months. Further evaluation is warranted as there is suspicion for a possible emerging neurodegenerative process given the floor level performance on cognitive tasks and behavioral presentation. The patient expressed motivation to participate in therapies and has a strong support network, which provide hope for a positive recovery outcome. The patient? s course should continue to be monitored for any further change in cognition and/or mood. The results can serve as a baseline for future comparison. Diagnosis: Unspecified Neurocognitive Disorder Recommendations: 1. Continued participation in rehabilitative therapies is recommended. The patient would benefit from learning compensatory strategies to aid in improving overall cognition. 2. Follow up with Neurology for additional evaluation to assess for a possible emerging neurodegenerative process. 3. Medication review may be considered to determine if the patient is an appropriate candidate for a memory medication. 4. Referral for outpatient neurorehabilitation may be considered if cognitive issues persist following discharge. [facility] provide these services. 5. The patient may consider a referral for an outpatient occupational therapy evaluation to assist with improving functioning of day-to-day tasks and work- related duties if cognitive issues persist following discharge. Taniya Cruz OTR/L ([phone]) is an occupational therapist with [facility] who specializes in memory compensation training for survivors of brain injury or other neurological impairments and development of strategies to compensate for residual memory and cognitive impairment in home, work, and school settings. 6. Continued monitoring of ADLs and safety is recommended. The patient and their family are encouraged to keep an open dialogue pertaining to the patient? s ability to manage daily tasks. This will allow the patient and their family the ability to recognize when and if increased assistance may be needed. 7. The patient and their family may consider purchasing a medical alert device to ensure they are able to contact the appropriate personnel in case of an emergency. 8. The [facility] has a Family Caregiver Support Program that provides case management, respite care, support groups and other assistance. They can perform a no cost in-home evaluation if deemed necessary. For more information, the patient? s family can call [phone] to ask for a referral for the Family Caregiver Support Program (www.[employer].org). 9. The patient was encouraged to increase participation in cognitively and socially stimulating activities. The patient may find word searches, puzzles, crosswords, or handheld games enjoyable, which can be found at a local general store. Reminiscing activities can also be pleasurable for individuals. For instance, focusing on pleasant activities/events from one? s past, such as significant events (best birthday, weddings, etc.), favorite memories from each season, favorite place to vacation, school days, sports, are topics to consider among others. [employer]ily [employer] is a [employer] that provides in-home services for cognitive stimulation and counseling needs (www.[employer]; ). 10. The patient may consider participating in individual psychotherapy if they find they are having a difficult time managing depression and anxiety related to any possible lifestyle adjustments/disability. b. [facility]) can provide such services and accepts most insurance plans including Medicare. i. [phone] 11. The patient is encouraged to continue participation in cognitively and socially stimulating activities for overall health and well-being. 12. The patient? s son stated he plans to fly the patient out to [place] and was inquiring about medical clearance to do so. He was encouraged to speak with the patient? s medical team regarding the inquiry. c. The patient? s son was recommended to take the patient on a trial outing (e.g., grocery store) to assess her emotional response to crowded and potentially over stimulating environments (e.g., airport) to determine what measures may be needed to improve her level of comfort during the flight. 13. Compensatory tools can be implemented to assist with improving functioning in day-to-day and work environments. The patient and those interacting with them may find these strategies helpful: d. Using a calendar to reference important dates e. Setting alarms or reminders for upcoming events or appointments f. Ensure her attention is captured before presenting information and use cues to help regain her focus when she has gone off task g. Ask the patient to repeat information back out loud h. The patient should also be encouraged to take her time when performing tasks to avoid making mistakes or missing important steps i. Breaking tasks into smaller chunks/steps j. Talking out loud during tasks can help her to follow the task through to completion k. Using checklists may aid in providing reminders to follow all necessary steps for specific tasks l. She may also schedule time blocks for specific tasks that require more attention m. Take breaks when needed to allow for mental rest. 14. The patient may find the following resources helpful: n. [facility] www.[employer].org 15. A follow up neuropsychological evaluation 3-6 months post discharge may be considered if cognitive issues persist. [facility] ([phone]) provide such services in [place], [place]. 16. I will follow up with this patient, during the patient's inpatient stay, on an as needed basis. Thank you for including me in the care of this patient. Janneth Guajardo Psy.D., Clinical Neuropsychologist Extracted from: Title:Neuro Consultation Author:Claudia Minor MD Date:10/15/21 Impression and Plan Diagnosis Diagnosis . Acute intracranial hemorrhage ([id number] I62.9, Discharge, Medical). Plan: 1. Subdural Hematoma - New condition, stable - Causing metabolic Encephalopathy + TBI + Concussion - Superimposed hospital acquired delirium - Patient is not quite at baseline - Potential cognitive impairment at baseline. - Airplane travel poses risks for recurrent strokes due to low oxygen content on board a plane. However, as patient had a hemorrhage and not a stroke, there are no concerns with flying aggravating her symptoms. As such. this patient is CLEARED to travel by airplane after discharge. . Pt Care Time: Total face to face time with patient 45 mins, Consultation/coordination of care time 25 mins, Greater than 50% face to face time spent counseling/coordinating care. Problem list: All Problems Chronic subdural hematoma / [id number] / Confirmed Canceled: Past medical history unknown / [id number]. Extracted from: Title:Neuropsychology Encounter Author:Janneth Guajardo PsyD Date:10/14/21 This provider attempted to m eet with the patient for neuropsychological consultation on 10/14/2021 but the session was ended early due to OT therapy being scheduled for that time. This provider will make another attempt to meet with the patient. Thank you for including me in the care of this patient. Janneth Guajardo Psy.D., Clinical Neuropsychologist Medications Colace 100 mg oral capsule 1 Cap Cap, PO, BID, PRN, as needed for constipation, Qty: 20 Cap, Refills: 0, Maintenance, Route toPharmacy Electronically, [id number] Start Date: 10/28/21 Status: Ordered Pepcid 20 mg oral tablet 1 Tab Tab, PO, BID, Qty: 60 Tab, Refills: 0, Maintenance, Route to Pharmacy Electronically, [id number] Start Date: 10/28/21 Status: Ordered Problem List Condition Effective Dates Status Health Status Inform ant Chronic subdural hematoma(Confirmed) Active Results Laboratory List Name Date CBC w/Diff* (man diff if indicated) 10/27 Comprehensive Metabolic Panel 10/27/21 CBC w/Diff* (man diff if indicated) 10/20 Comprehensive Metabolic Panel 10/20/21 Urinalysis UA Rflx Microscop Cult if Ind 10/20/21 zUrinalysis Microscopic 10/20/21 Urinalysis UA Rflx Microscop Cult if Ind 10/13/21 CBC w/Diff* (man diff if indicated) Comprehensive Metabolic Panel 10/13/21 Most recent to oldest [Reference Range]: 1 2 3 Urine WBCs [None per HPF] 5-10 per HPF *ABN* (10/20/21 1:58 AM) CBC Scan Auto Diff 1 *NA* (10/27/21 6:12 AM) Auto Diff 2 *NA* (10/20/21 4:31 AM) Auto Diff 3 *NA* (10/13/21 5:06 AM) Lymphs [10.0-55.0 %] 35.9 % (10/27/21 6:12 AM) 20.6 % (10/20/21 4:31 AM) 20.5 % (10/13/21 5:06 AM) Monos. [0.0-15.0 %] 6.3 % (10/27/21 6:12 AM) 7.5 % (10/20/21 4:31 AM) 5.8 % (10/13/21 5:06 AM) Baso. [0.0-3.0 %] 1.0 % (10/27/21 6:12 AM) 0.7 % (10/20/21 4:31 AM) 0.9 % (10/13/21 5:06 AM) Neuts [35.0-80.0 %] 55.5 % (10/27/21 6:12 AM) 70.5 % (10/20/21 4:31 AM) 71.7 % (10/13/21 5:06 AM) Eos. [0.0-9.0 %] 1.3 % (10/27/21 6:12 AM) 0.7 % (10/20/21 4:31 AM) 1.1 % (10/13/21 5:06 AM) Glucose Level [70-99 mg/dL] 82 mg/dL (10/27/21 6:12 AM) 73 mg/dL (10/20/21 4:31 AM) 78 mg/dL (10/13/21 5:06 AM) UA Squam Epithelial [0-10 per HPF] 0-10 per HPF *NA* (10/20/21 1:58 AM) Urine Culture if Indicated Not Indicated 4 *NA* (10/20/21 1:58 AM) Not Indicated 5 *NA* (10/13/21 10:14 AM) AST [5-34 Units/L] 17 Units/L (10/27/21 6:12 AM) 18 Units/L (10/20/21 4:31 AM) 27 Units/L (10/13/21 5:06 AM) ABS Neut [1.7-8.6 thousand/uL] 2.7 thousand/uL (10/27/21 6:12 AM) 4.6 thousand/uL (10/20/21 4:31 AM) 3.9 thousand/uL (10/13/21 5:06 AM) eGFR Non- Am >60 mL/min/1.73m2 *NA* (10/27/21 6:12 AM) >60 mL/min/1.73m2 *NA* (10/20/21 4:31 AM) >60 mL/min/1.73m2 *NA* (10/13/21 5:06 AM) eGFR Afr/Amer >60 mL/min/1.73m2 *NA* (10/27/21 6:12 AM) >60 mL/min/1.73m2 *NA* (10/20/21 4:31 AM) >60 mL/min/1.73m2 *NA* (10/13/21 5:06 AM) A/G Ratio [0.8-1.6] 0.9 (10/27/21 6:12 AM) 1.5 (10/20/21 4:31 AM) 1.0 (10/13/21 5:06 AM) ABS Baso [0.0-0.3 thousand/uL] 0.0 thousand/uL (10/27/21 6:12 AM) 0.0 thousand/uL (10/20/21 4:31 AM) 0.0 thousand/uL (10/13/21 5:06 AM) ABS Eos [0.0-1.0 thousand/uL] 0.1 thousand/uL (10/27/21 6:12 AM) 0.0 thousand/uL (10/20/21 4:31 AM) 0.1 thousand/uL (10/13/21 5:06 AM) ABS Lymph [0.5-5.9 thousand/uL] 1.7 thousand/uL (10/27/21 6:12 AM) 1.4 thousand/uL (10/20/21 4:31 AM) 1.1 thousand/uL (10/13/21 5:06 AM) ABS [place] [0.0-1.6 thousand/uL] 0.3 thousand/uL (10/27/21 6:12 AM) 0.5 thousand/uL (10/20/21 4:31 AM) 0.3 thousand/uL (10/13/21 5:06 AM) Albumin [3.4-5.0 gm/dL] 2.9 gm/dL *L* (10/27/21 6:12 AM) 3.0 gm/dL *L* (10/20/21 4:31 AM) 2.7 gm/dL *L* (10/13/21 5:06 AM) Alkphos [40-150 Units/L] 94 Units/L (10/27/21 6:12 AM) 92 Units/L (10/20/21 4:31 AM) 98 Units/L (10/13/21 5:06 AM) ALT [0-55 Units/L] 21 Units/L (10/27/21 6:12 AM) 30 Units/L (10/20/21 4:31 AM) 33 Units/L (10/13/21 5:06 AM) Anion Gap [5-15] 14 (10/27/21 6:12 AM) 10 (10/20/21 4:31 AM) 12 (10/13/21 5:06 AM) Appearance [Clear] Clear (10/20/21 1:58 AM) Clear (10/13/21 10:14 AM) Bili Total [0.2-1.2 mg/dL] 0.2 mg/dL (10/27/21 6:12 AM) 0.4 mg/dL (10/20/21 4:31 AM) 0.4 mg/dL (10/13/21 5:06 AM) BUN [10-20 mg/dL] 27 mg/dL *H* (10/27/21 6:12 AM) 14 mg/dL (10/20/21 4:31 AM) 9 mg/dL *L* (10/13/21 5:06 AM) Chloride [98-107 mmol/L] 102 mmol/L (10/27/21 6:12 AM) 103 mmol/L (10/20/21 4:31 AM) 104 mmol/L (10/13/21 5:06 AM) CO2 [23-31 mmol/L] 29 mmol/L (10/27/21 6:12 AM) 31 mmol/L (10/20/21 4:31 AM) 27 mmol/L (10/13/21 5:06 AM) Color [Yellow] Straw (10/20/21 1:58 AM) Straw (10/13/21 10:14 AM) Creatinine [0.57-1.11 mg/dL] 0.59 mg/dL (10/27/21 6:12 AM) 0.49 mg/dL *L* (10/20/21 4:31 AM) 0.51 mg/dL *L* (10/13/21 5:06 AM) Globulin [2.5-4.1 gm/dL] 3.2 gm/dL (10/27/21 6:12 AM) 2.0 gm/dL *L* (10/20/21 4:31 AM) 2.7 gm/dL (10/13/21 5:06 AM) Hct [37.0-47.0 %] 37.8 % (10/27/21 6:12 AM) 37.5 % (10/20/21 4:31 AM) 38.4 % (10/13/21 5:06 AM) Hgb [11.5-16.0 gm/dL] 12.8 gm/dL (10/27/21 6:12 AM) 12.8 gm/dL (10/20/21 4:31 AM) 13.2 gm/dL (10/13/21 5:06 AM) MCH [27.0-34.0 pg] 31.1 pg (10/27/21 6:12 AM) 30.9 pg (10/20/21 4:31 AM) 30.9 pg (10/13/21 5:06 AM) MCHC [32.0-37.0 gm/dL] 33.9 gm/dL (10/27/21 6:12 AM) 34.0 gm/dL (10/20/21 4:31 AM) 34.4 gm/dL (10/13/21 5:06 AM) MCV [80.0-100.0 fL] 91.9 fL (10/27/21 6:12 AM) 90.8 fL (10/20/21 4:31 AM) 89.8 fL (10/13/21 5:06 AM) Plt [130-400 thousand/uL] 298 thousand/u L (10/27/21 6:12 AM) 243 thousand/uL (10/20/21 4:31 AM) 179 thousand/uL (10/13/21 5:06 AM) Protein, Total [6.4-8.3 gm/dL] 6.1 gm/dL *L* (10/27/21 6:12 AM) 5.0 gm/dL *L* (10/20/21 4:31 AM) 5.4 gm/dL *L* (10/13/21 5:06 AM) RBC [4.00-5.40 million/uL] 4.12 million/ uL (10/27/21 6:12 AM) 4.13 million/uL (10/20/21 4:31 AM) 4.28 million/uL (10/13/21 5:06 AM) RDW [11.5-16.0 %] 15.1 % (10/27/21 6:12 AM) 14.9 % (10/20/21 4:31 AM) 14.5 % (10/13/21 5:06 AM) UEpi, Renal [0-2 per HPF] 0-2 per HPF *NA* (10/20/21 1:58 AM) Sodium [134-144 mmol/L] 140 mmol/L (10/27/21 6:12 AM) 140 mmol/L (10/20/21 4:31 AM) 138 mmol/L (10/13/21 5:06 AM) Specific [place] [1.008-1.020] 1.006 *L* (10/20/21 1:58 AM) 1.011 (10/13/21 10:14 AM) UBilirubin [Negative] Negative (10/20/21 1:58 AM) Negative (10/13/21 10:14 AM) UBlood [Negative] Negative (10/20/21 1:58 AM) Negative (10/13/21 10:14 AM) UGlucose [Negative] Negative (10/20/21 1:58 AM) Negative (10/13/21 10:14 AM) UKetones [Negative] Negative (10/20/21 1:58 AM) Negative (10/13/21 10:14 AM) ULeukocyte Esterase [Negative] Trace *ABN* (10/20/21 1:58 AM) Negative (10/13/21 10:14 AM) UNitrite [Negative] Negative (10/20/21 1:58 AM) Negative (10/13/21 10:14 AM) UpH [5.0-8.0] 9.0 *H* (10/20/21 1:58 AM) 8.0 (10/13/21 10:14 AM) UProtein [Negative] Negative (10/20/21 1:58 AM) Negative (10/13/21 10:14 AM) URBC [0-4 per HPF] 0-4 per HPF *NA* (10/20/21 1:58 AM) WBC [4.8-10.8 thousand/uL] 4.9 thousand/ uL (10/27/21 6:12 AM) 6.5 thousand/uL (10/20/21 4:31 AM) 5.4 thousand/uL (10/13/21 5:06 AM) Potassium [3.5-5.1 mmol/L] 4.8 mmol/L (10/27/21 6:12 AM) 4.5 mmol/L (10/20/21 4:31 AM) 4.9 mmol/L (10/13/21 5:06 AM) Calcium [8.4-10.2 mg/dL] 8.9 mg/dL (10/27/21 6:12 AM) 8.4 mg/dL (10/20/21 4:31 AM) 8.2 mg/dL *L* (10/13/21 5:06 AM) 1Result Comment: Verified by Discern 2Result Comment: Verified by Discern 3Result Comment: Verified by Discern 4Result Comment: Urine Culture not ordered due to one or more of the following conditions: *Patient Age >=2 *UA WBC <10 *The always cultured indication reason chosen was not: Urological Procedure Immunosuppressed Organ Donor 5Result Comment: Urine Culture not ordered due to one or more of the following conditions: *Patient Age >=2 *UA WBC <10 *The always cultured indication reason chosen was not: Urological Procedure Immunosuppressed Organ Donor Vital Signs Most recent to oldest [Reference Range]: 1 2 3 4 5 6 7 8 9 10 Temperature PO [36-37.5 deg C] 36.3 deg C (10/29/21 7:00 AM) 36.7 deg C ( 2 6:00 AM) 35.9 deg C *L* ( 2 7:28 PM) 36.6 deg C ( 2 7:00 AM) 36 deg C ( 2 6:00 AM) 36.4 deg C ( 2 6:00 AM) 35.8 deg C *L* ( 2 6:20 PM) 36.6 deg C ( 2 5:00 AM) 36.0 deg C ( 2 9:15 PM) 35.6 deg C *L* ( 5:30 AM) Temp Tympanic [36-37.5 deg C] 36.6 deg C (10/14/21 6:00 AM) Temperature Rectal [36-37.5 deg C] 36.6 deg C (10/26/21 6:00 AM) Temperature Temporal Artery [36.4-37.5 deg C] 37.1 deg C (10/28/21 6:00 PM) 36.9 deg C ( 2 6:00 PM) 36.8 deg C ( 2 6:00 PM) 37.0 deg C ( 2 6:00 PM) 37.0 deg C ( 2 6:00 PM) 37.1 deg C ( 2 6:00 PM) 36.7 deg C ( 2 5:00 AM) 37 deg C (6/13/2 2 5:00 AM) Heart Rate [51-119 bpm] 68 bpm (10/29/21 7:00 AM) 89 bpm (2 2 6:00 PM) 62 bpm (10/28/2 2 6:00 AM) 81 bpm (10/27/2 2 7:28 PM) 59 bpm (10/27/2 2 7:00 AM) 92 bpm (10/26/2 2 6:00 PM) 72 bpm (10/26/2 2 6:00 AM) 76 bpm (10/25/2 2 10:05 PM) 91 bpm (10/25/2 2 6:00 PM) 67 bpm ( 6:00 AM) Blood Pressure [91-139/51-89 mm Hg] 104/52mm Hg (10/29/21 7:00 AM) 94/58mm Hg (10/28/2 2 6:00 PM) 115/67m m Hg (2 2 6:00 AM) 111/66m m Hg (10/27/2 2 7:28 PM) 108/59m m Hg (10/27/2 2 7:00 AM) 103/60m m Hg (10/26/2 2 6:00 PM) 108/64m m Hg (10/26/2 2 6:00 AM) 116/64m m Hg (10/25/2 2 10:05 PM) 108/62m m Hg (10/25/2 2 6:00 AM) 112/67 mm Hg ( 6:20 PM) Resp Rate (Monitor) [13-20 Breaths/Min] 18 Breaths/M in (10/29/21 7:00 AM) 16 Breaths /Min (10/28/2 2 6:00 PM) 20 Breaths /Min (10/28/2 2 6:00 AM) 18 Breaths /Min (10/27/2 2 7:28 PM) 20 Breaths /Min (10/27/2 2 7:00 AM) 16 Breaths /Min (10/26/2 2 6:00 PM) 20 Breaths /Min (10/26/2 2 6:00 AM) 16 Breaths /Min (10/25/2 2 6:00 PM) 16 Breaths /Min ( 2 6:00 AM) 20 Breath s/Min ( 6:20 PM) SPO2 [92 %] 98 % (10/29/21 7:00 AM) 94 % ( 2 6:00 PM) 98 % ( 2 6:00 AM) 96 % ( 2 7:28 PM) 99 % ( 2 7:00 AM) 96 % ( 2 6:00 PM) 98 % ( 2 6:00 AM) 95 % ( 2 6:00 PM) 98 % ( 2 6:00 AM) 98 % ( 6:20 PM) Oxygen Method Room air (10/27/21 7:28 PM) Room air ( 2 10:05 PM) Room air ( 2 5:00 AM) Room air ( 2 5:00 AM) Room air (2 2 6:00 PM) Room air ( 2 5:00 AM) Room air ( 2 8:00 PM) Room air ( 2 5:00 AM) Room air ( 2 6:00 PM) Room air ( 5:00 AM) Glucose Level [70-99 mg/dL] 82 mg/dL (10/27/21 6:12 AM) 73 mg/dL ( 2 4:31 AM) 78 mg/dL (10/13/21 5:06 AM) Height 147.32 cm (10/12/21 5:45 PM) Drug Calc Weight (kg) 35.9 kg (10/12/21 5:45 PM) Weight Method Actual (10/12/21 5:45 PM) BMI 16.54 kg/m2 (10/12/21 5:45 PM) Bed alarm on No (10/29/21 12:00 PM) No ( 2 10:00 AM) No ( 2 8:00 AM) Social History Social History Type Response Smoking Status Never (less than 100 in lifetime) entered on: 10/09/21 Sex Hospital Discharge Instructions Patient Education 10/29/2021 12:47:30 Stroke Prevention, Myur-fp-Gtlk Stroke Prevention Some medical conditions and lifestyle choices can lead to a higher risk for a stroke. You can help to prevent a stroke by eating healthy foods and exercising. It also helps to not smoke and to manageany health problems you may have. How can this condition affect me? A stroke is an emergency. It should be treated right away. A stroke can lead to brain damage or threaten your life. There is a better chance of surviving and getting better after a stroke if you get medical help right away. What can increase my risk? The following medical conditions may increase your risk of a stroke: ??? Diseases of the heart and blood vessels (cardiovascular disease). ??? High blood pressure (hypertension). ??? Diabetes. ??? High cholesterol. ??? Sickle cell disease. ??? Problems with blood clotting. ??? Being very overweight. ??? Sleeping problems (obstructivesleep apnea). Other risk factors include: ??? Being older than age 60. ??? A history of blood clots, stroke, or mini-stroke (TIA). ??? Race, ethnic background, or a family history of stroke. ??? Smoking or using tobacco products. ??? Taking control pills, especially if you smoke. ??? Heavy alcohol and drug use. ??? Not being active. What actions can I take to prevent this? Manage your health conditions ??? High cholesterol. ??? Eat a healthy diet. If this is not enough to manage your cholesterol, you may need to take medicines. ??? Take medicines as told by your doctor. ??? High blood pressure. ??? Try to keep your blood pressure below 130/80. ??? If your blood pressure cannot be managed through a healthy diet and regular exercise, you may need to take medicines. ??? Take medicines as told by your doctor. ??? Ask your doctor if you should check your blood pressure at home. ??? Have your blood pressure checked every year. ??? Diabetes. ??? Eat a healthy diet and get regular exercise. If your blood sugar (glucose) cannot be managed through diet and exercise, you may need to take medicines. ??? Take medicines as told by your doctor. ??? Talk to your doctor about getting checked for sleeping problems. Signs of a problem can include: ??? Snoring a lot. ??? Feeling very tired. ??? Make sure that you manage any other conditions you have. Nutrition ??? Follow instructions from your doctor about what to eat or drink. You may be told to: ??? Eat and drink fewer calories each day. ??? Limit how much salt (sodium) you use to 1,500 milligrams (mg) each day. ??? Use only healthy fats for cooking, such as olive oil, canola oil, and sunflower oil. ??? Eat healthy foods. To do this: ??? Choose foods that are high in fiber. These include whole grains, and fresh fruits and vegetables. ??? Eat at least 5 servings of fruits and vegetables a day. Try to fill one-half of your plate withfruits and vegetables at each meal. ??? Choose low-fat (lean) proteins. These include low-fat cuts of meat, chicken without skin, fish,tofu, beans, and nuts. ??? Eat low-fat dairy products. ??? Avoid foods that: ??? Are high in salt. ??? Have saturated fat. ??? Have trans fat. ??? Have cholesterol. ??? Are processed or pre-made. ??? Count how many carbohydrates you eat and drink each day. Lifestyle ??? If you drink alcohol: ??? Limit how much you have to: ??? 0???1 drink a day for women who are not . ??? 0???2 drinks a day for men. ??? Know how much alcohol is in your drink. In the [place] one drink equals one 12 oz bottle of beer (355mL), one 5 oz glass of wine (148mL), or one 1?? oz glass of hard liquor (44mL). ??? Do not smoke or use any products that have nicotine or tobacco. If you need help quitting, ask your doctor. ??? Avoid secondhand smoke. ??? Do not use drugs. Activity ??? Try to stay at a healthy weight. ??? Get at least 30 minutes of exercise on most days, such as: ??? Fast walking. ??? Biking. ??? Swimming. Medicines ??? Take ytlz-ssk-qiremca and prescription medicines only as told by your doctor. ??? Avoid taking control pills. Talk to your doctor about the risks of taking control pills if: ??? You are over 35 years old. ??? You smoke. ??? You get very bad headaches. ??? You have had a blood clot. Where to find more information ??? [place] [employer]: www.strokeassociation.org Get help right away if: ??? You or a loved one has any signs of a stroke. BE FAST is an easy way to remember the warning signs: ??? B - Balance. Dizziness, sudden trouble walking, or loss of balance. ??? E - Eyes. Trouble seeing or a change in how you see. ??? F - Face. Sudden weakness or loss of feeling of the face. The face or eyelid may droop on one side. ??? A - Arms. Weakness or loss of feeling in an arm. This happens all of a sudden and most often onone side of the body. ??? S - Speech. Sudden trouble speaking, slurred speech, or trouble understanding what people say. ??? T - Time. Time to call emergency services. Write down what time symptoms started. ??? You or a loved one has other signs of a stroke, such as: ??? A sudden, very bad headache with no known cause. ??? Feeling like you may vomit (nausea). ??? Vomiting. ??? A seizure. These symptoms may be an emergency. Get help right away. Call your local emergency services ([address] [facility] [place] ??? Do not wait to see if the symptoms will go away. ??? Do not drive yourself to the hospital. Summary ??? You can help to prevent a stroke by eating healthy, exercising, and not smoking. It also helps to manage any health problems you have. ??? Do not smoke or use any products that contain nicotine or tobacco. ??? Get help right away if you or a loved one has any signs of a stroke. This information is not intended to replace advice given to you by your health care provider. Make sure you discuss any questions you have with your health care provider. Document Revised: 11/24/2020 Document Reviewed: 11/24/2020 [employer] Patient Education ?? 2021 [employer]. 10/29/2021 12:47:27 Hand Washing, Rvgy-rk-Slkb Hand Washing Germs such as bacteria, viruses, [...] A mobile phone or other phone. ??? [employer]ician or chemicals. ??? You touch or take [...] a hand-washing wipe, spray, or gel (hand reed or wind instrument tuner). Use one that has at least 60% [...] provider. Document Revised: 09/01/2020 Document Reviewed: 09/01/2020 [employer] Patient Education ?? 2021 [employer]. 10/29/2021 12:47:26 Fall Prevention in the Home, Adult, Vrmk-ya-Bicu Fall Prevention in the Home, Adult Falls [...] Keep items that you use often in edqv-ig-sxlva places. Lower the shelves around your home [...] the way. ??? Do not use floor kosovan or wax that makes floors slippery. What [...] Control and Prevention, [place]: www.cdc.gov ??? National [place] on Aging: www.jas.nih.gov Contact a doctor if: [...] provider. Document Revised: 11/26/2020 Document Reviewed: 11/26/2020 [employer] Patient Education ?? 2021 [employer] Follow Up Care 10/12/2021 17:33:56 With:Clinic Follow up Address:Unknown When:1 to 3 days Comments:neurology With:Follow up with primary care provider Address:Unknown When:1 to 3 days
--- OUTSIDE RECORDS SUMMARY | 2023-11-11 09:19 | XMS_ITS | Continuity of Care Document ---
Author Organization [facility] Address [address] [place] [address]- Care Team Providers Care Wharf Builder Name Role Phone PCP, No Primary Care Physician Unavailab le Encounter EVSA_FIN [id number] Date(s): 10/19/21 - 10/20/21 [facility] [address] [place], [place] [address]RUST [phone] Discharge Disposition: Home or Self Care Attending Physician: Channing Odell MD Allergies, Adverse Reactions, Alerts No Known Medication Allergies Substance Reaction Severity Status [place] NAUSEA Mild Active Wheat Nausea Mild Active Medications NO HOME MEDICATIONS NO HOME MEDICATIONS, Refills: 0, 10/12/21 17:47:00 MST, Maintenance Start Date: 10/12/21 Status: Ordered Problem List Condition Effective Dates Status Health Status Inform ant Chronic subdural hematoma(Confirmed) Active Social History Social History Type Response Smoking Status Never (less than 100 in lifetime) entered on: 10/09/21 Sex
--- OUTSIDE RECORDS SUMMARY | 2023-11-11 09:19 | XMS_ITS | Continuity of Care Document ---
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 11/06/2021 [facility] [place],[facility] Altered mental status (finding) 10/28/2021 [facility] Intracranial hemorrhage (disorder) 11/06/2021 [facility] [place] Subdural hemorrhage - nontraumatic (disorder) 11/06/2021 [facility] [place] Unsteadiness present (finding) 11/06/2021 [facility] [place] General symptoms (context-dependent category) 11/06/2021 [facility] [place] Metabolic encephalopathy (disorder) 10/20/2021 [facility] Concussion with loss of consciousness (disorder) 10/20/2021 [facility] Deficiency of macronutrients (disorder) 10/20/2021 [facility] Recurrent falls (finding) 10/20/2021 [facility] Medications Medication Details Route Status Patient Instructions Ordering Provider Order Date Source Famotidine 20 MG Oral Tablet [Pepcid] 1 Tab Tab, PO, BID, Qty: 60 Tab, Refills: 0, Maintenance, Route to Pharmacy Electronically , [id number] Active 2021 [facility] [place] Lorazepam 0.5 MG Oral Tablet [Ativan] 1 Tab Tab, PO, Daily, PRN, as needed for anxiety, 5 Day, Qty: 5 Tab, Refills: 0, 11/02/21 20:34:00 MST, Acute, Route to Pharmacy Electronically , [facility]/pharmacy #[id number] Inactive 2021 [facility] [place] Docusate Sodium 100 MG Oral Capsule [Colace] 1 Cap Cap, PO, BID, PRN, as needed for constipation, Qty: 20 Cap, Refills: 0, Maintenance, Route to Pharmacy Electronically , [facility]/pharmacy #[id number] Active 2021 [facility] [place] Senokot 17.2 mg, Tab, PO, qHS, Refills: 0, Maintenance Active 2021 [facility] Famotidine 20 MG Oral Tablet [Pepcid] 1 Tab Tab, PO, BID, Refills: 0, Maintenance Active 2021 [facility] Colace 100 mg, Liquid, PO, BID, Refills: 0, Maintenance Active 2021 [facility] NO HOME MEDICATIONS NO HOME MEDICATIONS, Refills: 0, 10/12/21 17:47:00 MST, Maintenance Active 2021 [facility] Acetaminophen 650 mg, PO, Tab, q4hr Priority: Routine PRN Pain Mild (1-3), Start: 10/09/21 2:20:00 MSTNotes: NTE 4 gms of Acetaminophen in 24 hrs C: Pain Medication; I: Pain; SE: hypotension Inactive 2021 [facility] Ketorolac 15 mg, IV Push, INJ, q6hr Routine PRN Pain Moderate (4-6), pts >65 yo, <50 kg, or renal dysfunction (Scr greater than 1.5 mg/dl), for 5 Day, Start: 10/09/21 2:20:00 MST, Stop: 10/14/21 2:19:00 MSTNotes: Note dose, age, renal function, duration C: Anti-inflammat ory (NSAID); I: Pain Control; SE: heartburn, nausea Inactive 2021 [facility] Allergies, Adverse Reactions, Alerts Substance Category Reaction Severity Reaction type Status Date Reported Comments Source [place] Assertion NAUSEA Mild Food allergy Active [facility] Wheat Assertion Nausea Mild Food allergy Active [facility] Results Order Name Results Value Reference Range Date Interpretation Comments Source Urinalysis Color Straw (10/20/21 1:58 AM) 10/20 [facility] Urinalysis Appearance Clear (10/20/21 1:58 AM) 10/20 [facility] Urinalysis UGlucose Negative (10/20/21 1:58 AM) 10/20 [facility] Urinalysis UBilirubin Negative (10/20/21 1:58 AM) 10/20 [facility] Urinalysis UKetones Negative (10/20/21 1:58 AM) 10/20 [facility] Urinalysis Specific [place] 1.006 1.008 - 1.020 10/20 [facility] Urinalysis UBlood Negative (10/20/21 1:58 AM) 10/20 [facility] Urinalysis UpH 9.0 5.0 - 8.0 10/20 [facility] Urinalysis UProtein Negative (10/20/21 1:58 AM) 10/20 [facility] Urinalysis UNitrate Negative (10/20/21 1:58 AM) 10/20 [facility] Urinalysis ULeu Trace *ABN* (10/20/21 1:58 AM) 10/20 [facility] Urinalysis URBC 0-4 per HPF 0 - 4 10/20 [facility] Urinalysis Urine WBCs 5-10 per HPF 10/20 [facility] Urinalysis UA Squam Epithelial 0-10 per HPF 0 - 10 10/20 [facility] Urinalysis UEpi, Renal 0-2 per HPF 0 - 2 10/20 [facility] Urinalysis UCIF Yes/No Not Indicated 5 *NA* (10/13/21 10:14 AM) 10/13 Result Comment: Urine Culture not ordered due to one or more of the following conditions: *Patient Age >=2 *UA WBC <10 *The always cultured indication reason chosen was not: Urological Procedure Immunosuppres sed Organ Donor [facility] Urinalysis Color Straw (10/13/21 10:14 AM) 10/13 [facility] Urinalysis Appearance Clear (10/13/21 10:14 AM) 10/13 [facility] Urinalysis UGlucose Negative (10/13/21 10:14 AM) 10/13 [facility] Urinalysis UBilirubin Negative (10/13/21 10:14 AM) 10/13 [facility] Urinalysis UKetones Negative (10/13/21 10:14 AM) 10/13 [facility] Urinalysis Specific [place] 1.011 1.008 - 1.020 10/13 [facility] Urinalysis UBlood Negative (10/13/21 10:14 AM) 10/13 [facility] Urinalysis UpH 8.0 5.0 - 8.0 10/13 [facility] Urinalysis UProtein Negative (10/13/21 10:14 AM) 10/13 [facility] Urinalysis UNitrite Negative (10/13/21 10:14 AM) 10/13 [facility] Urinalysis ULeukocyte Esterase Negative (10/13/21 10:14 AM) 10/13 [facility] CBC WBC 5.4 4.8 - 10.8 10/13 [facility] CBC RBC 4.28 4.00 - 5.40 10/13 [facility] CBC Hgb 13.2 11.5 - 16.0 10/13 [facility] CBC Hct 38.4 37.0 - 47.0 10/13 [facility] CBC MCV 89.8 80.0 - 100.0 10/13 [facility] CBC MCH 30.9 27.0 - 34.0 10/13 [facility] CBC MCHC 34.4 32.0 - 37.0 10/13 [facility] CBC RDW 14.5 11.5 - 16.0 10/13 [facility] CBC Plt 179 130 - 400 10/13 [facility] CBC Neuts 71.7 35.0 - 80.0 10/13 [facility] CBC Lymphs 20.5 10.0 - 55.0 10/13 [facility] CBC Monos. 5.8 0.0 - 15.0 10/13 [facility] CBC Eos. 1.1 0.0 - 9.0 10/13 [facility] CBC Baso. 0.9 0.0 - 3.0 10/13 [facility] CBC ABS Neut 3.9 1.7 - 8.6 10/13 [facility] CBC ABS Lymph 1.1 0.5 - 5.9 10/13 [facility] CBC ABS Porter 0.3 0.0 - 1.6 10/13 [facility] CBC ABS Eos 0.1 0.0 - 1.0 10/13 [facility] CBC ABS Baso 0.0 0.0 - 0.3 10/13 [facility] CBC CBC Scan Auto Diff 3 *NA* (10/13/21 5:06 AM) 10/13 Result Comment: Verified by Discern [facility] General Chemistry eGFR Afr/Amer >60 10/13 [facility] General Chemistry Glucose Level 78 70 - 99 10/13 [facility] General Chemistry BUN 9 10 - 20 10/13 [facility] General Chemistry Creatinine 0.51 0.57 - 1.11 10/13 [facility] General Chemistry Sodium 138 134 - 144 10/13 [facility] General Chemistry Potassium 4.9 3.5 - 5.1 10/13 [facility] General Chemistry Chloride 104 98 - 107 10/13 [facility] General Chemistry CO2 27 23 - 31 10/13 [facility] General Chemistry Calcium 8.2 8.4 - 10.2 10/13 [facility] General Chemistry Protein, Total 5.4 6.4 - 8.3 10/13 [facility] General Chemistry Albumin 2.7 3.4 - 5.0 10/13 [facility] General Chemistry AST 27 5 - 34 10/13 [facility] General Chemistry ALT 33 0 - 55 10/13 [facility] General Chemistry Alkphos 98 40 - 150 10/13 [facility] General Chemistry Bili Total 0.4 0.2 - 1.2 10/13 [facility] General Chemistry Anion Gap 12 5 - 15 10/13 [facility] General Chemistry Globulin 2.7 2.5 - 4.1 10/13 [facility] General Chemistry A/G Ratio 1.0 0.8 - 1.6 10/13 [facility] General Chemistry eGFR Non- Am >60 10/13 [facility] Gluc (POCT) Glucose (POCT) Automated 102 70 - 100 10/12 H Stereotype Finisher: [id number] CHANI CABAN [facility] Gluc (POCT) Glucose (POCT) Automated 83 70 - 100 10/12 Stereotype Finisher: [id number] ULISSES CHATMAN [facility] Gluc (POCT) Glucose (POCT) Automated 78 70 - 100 10/12 Stereotype Finisher: [id number] [facility] Gluc (PO[facility]) Glucose (POCT) Automated 91 70 - 100 10/12 Stereotype Finisher: [id number] JOLEENASH TREVOR [facility] Gluc (POCT) Glucose (POCT) Automated 93 70 - 100 10/12 Stereotype Finisher: [id number] [facility] Gluc (POCT) Glucose (POCT) Automated 132 70 - 100 10/11 H Stereotype Finisher: [id number] [facility] Gluc (POCT) Glucose (POCT) Automated 108 70 - 100 10/11 H Stereotype Finisher: [id number] CUONG GARNER [facility] BMP (Basic) Sodium 140 136 - 145 10/11 [facility] BMP (Basic) Potassium 3.6 3.5 - 5.1 10/11 [facility] BMP (Basic) Chloride 108 98 - 107 10/11 H [facility] BMP (Basic) CO2 27 23 - 31 10/11 [facility] BMP (Basic) Glucose Level 81 80 - 115 10/11 [place] [employer] (ADA) Guidelines: Optimal fasting blood glucose is below 100 mg/dL. A person with pre-diabetes has a fasting blood glucose of 100-125. [facility] (Basic) BUN 14 10 - 20 10/11 [facility] (Basic) Creatinine 0.59 0.57 - 1.25 10/11 Result is ID-GC/MS standardized [facility] (Basic) Calcium 7.9 8.4 - 10.2 10/11 L [facility] BMP (Basic) Anion Gap 9 10 - 10/11 L [facility] BMP (Basic) eGFR Non- Am >60 10/11 NORMALIZED FOR ID-GC/MS STANDARDIZED CREATININE (NON-AF AMR=NON-AFRIC AN SAMOAN, AF AMR=) KIDNEY DAMAGE STAGES FROM THE [facility] STAGE 1 and 2 >60 mL/min/1.73 square meters STAGE 3 30-59 mL/min/1.73 square meters STAGE 4 15-29 mL/min/1.73 square meters STAGE 5 <14 mL/min/1.73 square meters In accordance with recommendatio ns from the NKF-ASN Task Force, the laboratory is in the process of updating its eGFR calculation to the 2020 CKD-EPI creatinine equation that estimates kidney function without a race variable. [facility] (Basic) eGFR Afr/Amer >60 10/11 NORMALIZED FOR ID-GC/MS STANDARDIZED CREATININE (NON-AF AMR=NON-AFRIC AN SAMOAN, AF AMR=) KIDNEY DAMAGE STAGES FROM [facility] STAGE 1 and 2 >60 mL/min/1.73 square meters STAGE 3 30-59 mL/min/1.73 square meters STAGE 4 15-29 mL/min/1.73 square meters STAGE 5 <14 mL/min/1.73 square meters [facility] BMP (Basic) Heme Index Negative 10/11 [facility] BMP (Basic) Lipemia Index Negative 10/11 [facility] (Basic) Drug Calc Weight (kg) 34.331 10/11 [facility] BMP (Basic) Height (cm) 147.320 10/11 [facility] CBC w/Diff WBC 5.1 4.8 - 10.8 10/11 [facility] CBC w/Diff RBC 4.01 4.00 - 5.40 10/11 [facility] CBC w/Diff Hgb 12.5 11.5 - 16.0 10/11 [facility] CBC w/Diff Hct 36.8 37.0 - 47.0 10/11 L [facility] CBC w/Diff MCV 91.6 80.0 - 100.0 10/11 [facility] CBC w/Diff MCH 31.0 27.0 - 34.0 10/11 [facility] CBC w/Diff MCHC 33.9 32.0 - 37.0 10/11 [facility] CBC w/Diff RDW 15.0 11.5 - 16.0 10/11 [facility] CBC w/Diff Plt 183 130 - 400 10/11 [facility] CBC w/Diff Neuts 57.9 35.0 - 80.0 10/11 [facility] CBC w/Diff Lymphs 34.2 10.0 - 55.0 10/11 [facility] CBC w/Diff Monos. 6.3 0.0 - 15.0 10/11 [facility] CBC w/Diff Eos. 1.0 0.0 - 9.0 10/11 [facility] CBC w/Diff Baso. 0.6 0.0 - 3.0 10/11 [facility] CBC w/Diff ABS Neut 3.0 1.7 - 8.6 10/11 [facility] CBC w/Diff ABS Lymph 1.7 0.5 - 5.9 10/11 [facility] CBC w/Diff ABS Porter 0.3 0.0 - 1.6 10/11 [facility] CBC w/Diff ABS Eos 0.1 0.0 - 1.0 10/11 [facility] CBC w/Diff ABS Baso 0.0 0.0 - 0.3 10/11 [facility] CBC w/Diff CBC Scan Auto Diff 10/11 Verified by Discern [facility] CBC WBC 5.1 4.8 - 10.8 10/11 [facility] CBC RBC 4.01 4.00 - 5.40 10/11 [facility] CBC Hgb 12.5 11.5 - 16.0 10/11 [facility] CBC Hct 36.8 37.0 - 47.0 10/11 [facility] CBC MCV 91.6 80.0 - 100.0 10/11 [facility] CBC MCH 31.0 27.0 - 34.0 10/11 [facility] CBC MCHC 33.9 32.0 - 37.0 10/11 [facility] CBC RDW 15.0 11.5 - 16.0 10/11 [facility] CBC Plt 183 130 - 400 10/11 [facility] CBC Neuts 57.9 35.0 - 80.0 10/11 [facility] CBC Lymphs 34.2 10.0 - 55.0 10/11 [facility] CBC Monos. 6.3 0.0 - 15.0 10/11 [facility] CBC Eos. 1.0 0.0 - 9.0 10/11 [facility] CBC Baso. 0.6 0.0 - 3.0 10/11 [facility] CBC ABS Neut 3.0 1.7 - 8.6 10/11 [facility] CBC ABS Lymph 1.7 0.5 - 5.9 10/11 [facility] CBC ABS Porter 0.3 0.0 - 1.6 10/11 [facility] CBC ABS Eos 0.1 0.0 - 1.0 10/11 [facility] CBC ABS Baso 0.0 0.0 - 0.3 10/11 [facility] CBC CBC Scan Auto Diff 1 *NA* (10/11/21 2:21 AM) 10/11 Result Comment: Verified by Discern [facility] General Chemistry eGFR Non- Am >60 10/11 [facility] General Chemistry Glucose Level 81 80 - 115 10/11 [facility] General Chemistry BUN 14 10 - 20 10/11 [facility] General Chemistry Creatinine 0.59 0.57 - 1.25 10/11 [facility] General Chemistry Sodium 140 136 - 145 10/11 [facility] General Chemistry Potassium 3.6 3.5 - 5.1 10/11 [facility] General Chemistry Chloride 108 98 - 107 10/11 [facility] General Chemistry CO2 27 23 - 31 10/11 [facility] General Chemistry Calcium 7.9 8.4 - 10.2 10/11 [facility] General Chemistry Anion Gap 9 10 - 20 10/11 [facility] General Chemistry eGFR Afr/Amer >60 10/11 [facility] Gluc (POCT) Glucose (POCT) Automated 179 70 - 100 10/11 H Stereotype Finisher: [id number] MAGSUZANNE TRIPLETT [facility] Gluc (POCT) Glucose (POCT) Automated 280 70 - 100 10/11 H Stereotype Finisher: [id number] [facility] BMP (Basic) Sodium 140 136 - 145 10/10 [facility] BMP (Basic) Potassium 3.4 3.5 - 5.1 10/10 L [facility] BMP (Basic) Chloride 109 98 - 107 10/10 H [facility] BMP (Basic) CO2 25 23 - 31 10/10 [facility] BMP (Basic) Glucose Level 115 80 - 115 10/10 [place] [employer] (ADA) Guidelines: Optimal fasting blood glucose is below 100 mg/dL. A person with pre-diabetes has a fasting blood glucose of 100-125. [facility] (Basic) BUN 19 10 - 20 10/10 [facility] (Basic) Creatinine 0.56 0.57 - 1.25 10/10 L Result is ID-GC/MS standardized [facility] BMP (Basic) Calcium 7.8 8.4 - 10.2 10/10 L [facility] BMP (Basic) Anion Gap 9 10 - 20 10/10 L [facility] BMP (Basic) eGFR Non- Am >60 10/10 NORMALIZED FOR ID-GC/MS STANDARDIZED CREATININE (NON-AF AMR=NON-AFRIC AN SAMOAN, AF AMR=) KIDNEY DAMAGE STAGES FROM [facility] STAGE 1 and 2 >60 mL/min/1.73 square meters STAGE 3 30-59 mL/min/1.73 square meters STAGE 4 15-29 mL/min/1.73 square meters STAGE 5 <14 mL/min/1.73 square meters In accordance with recommendatio ns from the NKF-ASN Task Force, the laboratory is in the process of updating its eGFR calculation to the 2020 CKD-EPI creatinine equation that estimates kidney function without a race variable. [facility] BMP (Basic) eGFR Afr/Amer >60 10/10 NORMALIZED FOR ID-GC/MS STANDARDIZED CREATININE (NON-AF AMR=NON-AFRIC AN SAMOAN, AF AMR=) KIDNEY DAMAGE STAGES FROM [facility] STAGE 1 and 2 >60 mL/min/1.73 square meters STAGE 3 30-59 mL/min/1.73 square meters STAGE 4 15-29 mL/min/1.73 square meters STAGE 5 <14 mL/min/1.73 square meters [facility] (Basic) Heme Index Negative 10/10 [facility] (Basic) Lipemia Index Negative 10/10 [facility] (Basic) Drug Calc Weight (kg) 34.331 10/10 [facility] (Basic) Height (cm) 147.320 10/10 [facility] CBC w/Diff WBC 5.2 4.8 - 10.8 10/10 [facility] CBC w/Diff RBC 3.82 4.00 - 5.40 10/10 [facility] CBC w/Diff Hgb 11.8 11.5 - 16.0 10/10 [facility] CBC w/Diff Hct 34.2 37.0 - 47.0 10/10 [facility] CBC w/Diff MCV 89.6 80.0 - 100.0 10/10 [facility] CBC w/Diff MCH 31.0 27.0 - 34.0 10/10 [facility] CBC w/Diff MCHC 34.6 32.0 - 37.0 10/10 [facility] CBC w/Diff RDW 15.0 11.5 - 16.0 10/10 [facility] CBC w/Diff Plt 182 130 - 400 10/10 [facility] CBC w/Diff Neuts 63.2 35.0 - 80.0 10/10 [facility] CBC w/Diff Lymphs 29.7 10.0 - 55.0 10/10 [facility] CBC w/Diff Monos. 6.1 0.0 - 15.0 10/10 [facility] CBC w/Diff Eos. 0.5 0.0 - 9.0 10/10 [facility] CBC w/Diff Baso. 0.5 0.0 - 3.0 10/10 [facility] CBC w/Diff ABS Neut 3.3 1.7 - 8.6 10/10 [facility] CBC w/Diff ABS Lymph 1.5 0.5 - 5.9 10/10 [facility] CBC w/Diff ABS Porter 0.3 0.0 - 1.6 10/10 [facility] CBC w/Diff ABS Eos 0.0 0.0 - 1.0 10/10 [facility] CBC w/Diff ABS Baso 0.0 0.0 - 0.3 10/10 [facility] CBC w/Diff CBC Scan Auto Diff 10/10 [facility] Gluc (POCT) Glucose (POCT) Automated 182 70 - 100 10/10 H Stereotype Finisher: [id number] [facility] Gluc (POCT) Glucose (POCT) Automated 211 70 - 100 10/09 H Stereotype Finisher: [id number] [facility] Folate Folate 4.6 >=3.5 10/09 [facility] Folate Heme Index Negative 10/09 [facility] Vit B12 Vit B12 553 213 - 816 10/09 [facility] Vit B12 Heme Index Negative 10/09 [facility] CK/CKMB CK 309 40 - 140 10/09 H [facility] CK/CKMB CK MB 12.9 0.0 - 3.4 10/09 H [facility] CK/CKMB CKMB% 4.2 - <=4.0 10/09 H [facility] Gluc (POCT) Glucose (POCT) Automated 181 70 - 100 10/09 H Stereotype Finisher: [id number] [facility] Gluc (POCT) Glucose (POCT) Automated 85 70 - 100 10/09 Stereotype Finisher: [id number] [facility] Gluc (POCT) Glucose (POCT) Automated 77 70 - 100 10/09 Stereotype Finisher: [id number] [facility] Gluc (POCT) Glucose (POCT) Automated 63 70 - 100 10/09 L Stereotype Finisher: [id number] JIMBO JACOBO [facility] UTOX U THC Negative Negative 10/09 [facility] UTOX U PCP Negative Negative 10/09 [facility] UTOX U Cocaine Negative Negative 10/09 [facility] UTOX U Opiates Negative Negative 10/09 [facility] UTOX U Amphetamine/ Methamphetam ine Negative Negative 10/09 [facility] UTOX U Benzodiazepi ne Negative Negative 10/09 [facility] UTOX U Methadone Negative Negative 10/09 [facility] UTOX U Barbiturate Negative Negative 10/09 [facility] UTOX U Oxycodone Negative Negative 10/09 [facility] UTOX U Fentanyl Negative Negative 10/09 [facility] UA RfMicCIF Appearance Clear Clear 10/09 [facility] RfMicCIF Color Yellow Yellow 10/09 [facility] RfMicCIF Specific [place] >=1.030 1.008 - 1.020 10/09 ABN [facility] RfMicCIF UpH 5.0 5.0 - 8.0 10/09 [facility] RfMicCIF UBlood Trace-inta ct Negative 10/09 [facility] RfMicCIF UBilirubin 1+ Negative 10/09 ABN [facility] RfMicCIF UGlucose Negative Negative 10/09 [facility] RfMicCIF UKetones 1+ Negative 10/09 ABN [facility] RfMicCIF ULeukocyte Esterase Negative Negative 10/09 [facility] UA RfMicCIF UNitrite Negative Negative 10/09 [facility] UA RfMicCIF UProtein 1+ Negative 10/09 [facility] UA RfMicCIF UIctotest Positive Negative 10/09 [facility] UA RfMicCIF Urine Culture if Indicated Not Indicated 10/09 Urine Culture not ordered due to one or more of the following conditions: *Patient Age >=2 *UA WBC <10 *The always cultured indication reason chosen was not: Urological Procedure Immunosuppres sed Organ Donor [facility] UA Microscopi c URBC 0-4 0-4 10/09 [facility] UA Microscopi c Urine WBCs 5-10 None 10/09 [facility] UA Microscopi c UBacteria None None 10/09 [facility] UA Microscopi c UA Squam Epithelial None 0-10 10/09 [facility] UA Microscopi c UMucous Rare 10/09 [facility] UA Microscopi c Hyaline Casts 3-10 0-2 10/09 [facility] BMP (Basic) Sodium 140 136 - 145 10/09 [facility] BMP (Basic) Potassium 5.1 3.5 - 5.1 10/09 [facility] BMP (Basic) Chloride 105 98 - 107 10/09 [facility] BMP (Basic) CO2 27 23 - 31 10/09 [facility] BMP (Basic) Glucose Level 89 80 - 115 10/09 [employer] (ADA) Guidelines: Optimal fasting blood glucose is below 100 mg/dL. A person with pre-diabetes has a fasting blood glucose of 100-125. [facility] BMP (Basic) BUN 26 10 - 20 10/09 H [facility] BMP (Basic) Creatinine 0.67 0.57 - 1.25 10/09 Result is ID-GC/MS standardized [facility] BMP (Basic) Calcium 8.8 8.4 - 10.2 10/09 [facility] BMP (Basic) Anion Gap 13 10 - 20 10/09 [facility] (Basic) eGFR Non- Am >60 10/09 NORMALIZED FOR ID-GC/MS STANDARDIZED CREATININE (NON-AF AMR=NON-AFRIC AN SAMOAN, AF AMR=) KIDNEY DAMAGE STAGES FROM [facility] STAGE 1 and 2 >60 mL/min/1.73 square meters STAGE 3 30-59 mL/min/1.73 square meters STAGE 4 15-29 mL/min/1.73 square meters STAGE 5 <14 mL/min/1.73 square meters In accordance with recommendatio ns from the NKF-ASN Task Force, the laboratory is in the process of updating its eGFR calculation to the 2020 CKD-EPI creatinine equation that estimates kidney function without a race variable. [facility] BMP (Basic) eGFR Afr/Amer >60 10/09 NORMALIZED FOR ID-GC/MS STANDARDIZED CREATININE (NON-AF AMR=NON-AFRIC AN SAMOAN, AF AMR=) KIDNEY DAMAGE STAGES FROM [facility] STAGE 1 and 2 >60 mL/min/1.73 square meters STAGE 3 30-59 mL/min/1.73 square meters STAGE 4 15-29 mL/min/1.73 square meters STAGE 5 <14 mL/min/1.73 square meters [facility] BMP (Basic) Heme Index Negative 10/09 [facility] (Basic) Lipemia Index Negative 10/09 [facility] BMP (Basic) Drug Calc Weight (kg) 36.281 10/09 [facility] BMP (Basic) Height (cm) 157.480 10/09 [facility] Toxicology U THC Negative (10/09/21 12:37 AM) 10/09 [facility] Toxicology U PCP Negative (10/09/21 12:37 AM) 10/09 [facility] Toxicology U Cocaine Negative (10/09/21 12:37 AM) 10/09 [facility] Toxicology U Opiates Negative (10/09/21 12:37 AM) 10/09 [facility] Toxicology U Amphetamine Negative (10/09/21 12:37 AM) 10/09 [facility] Toxicology U Benzodiazepi ne Negative (10/09/21 12:37 AM) 10/09 [facility] Toxicology U Methadone Negative (10/09/21 12:37 AM) 10/09 [facility] Toxicology U Barbiturate Negative (10/09/21 12:37 AM) 10/09 [facility] Toxicology U Oxycodone Negative (10/09/21 12:37 AM) 10/09 [facility] Toxicology U Fentanyl Negative (10/09/21 12:37 AM) 10/09 [facility] Urinalysis UCIF Yes/No Not Indicated 4 *NA* (10/09/21 12:37 AM) 10/09 Result Comment: Urine Culture not ordered due to one or more of the following conditions: *Patient Age >=2 *UA WBC <10 *The always cultured indication reason chosen was not: Urological Procedure Immunosuppres sed Organ Donor [facility] Urinalysis Color Yellow (10/09/21 12:37 AM) 10/09 [facility] Urinalysis Appearance Clear (10/09/21 12:37 AM) 10/09 [facility] Urinalysis UGlucose Negative (10/09/21 12:37 AM) 10/09 [facility] Urinalysis UBilirubin 1+ *ABN* (10/09/21 12:37 AM) 10/09 [facility] Urinalysis UKetones 1+ *ABN* (10/09/21 12:37 AM) 10/09 [facility] Urinalysis Specific [place] >=1.030 *ABN* (10/09/21 12:37 AM) 1.008 - 1.020 10/09 [facility] Urinalysis UBlood Trace-inta ct *ABN* (10/09/21 12:37 AM) 10/09 [facility] Urinalysis UpH 5.0 5.0 - 8.0 10/09 [facility] Urinalysis UProtein 1+ *ABN* (10/09/21 12:37 AM) 10/09 [facility] Urinalysis UNitrite Negative (10/09/21 12:37 AM) 10/09 [facility] Urinalysis ULeukocyte Esterase Negative (10/09/21 12:37 AM) 10/09 [facility] Urinalysis UIctotest Positive *ABN* (10/09/21 12:37 AM) 10/09 [facility] Urinalysis URBC 0-4 per HPF 0 - 4 10/09 [facility] Urinalysis Urine WBCs 5-10 per HPF 10/09 [facility] Urinalysis UBacteria None per HPF 10/09 [facility] Urinalysis UA Squam Epithelial None per HPF 0 - 10 10/09 [facility] Urinalysis UMucous Rare per LPF 10/09 [facility] Urinalysis Hyaline Casts 3-10 per LPF 0 - 2 10/09 [facility] CBC w/Diff CBC Scan Auto Diff 10/09 Verified by Discern [facility] CBC w/Diff WBC 6.3 4.8 - 10.8 10/09 [facility] CBC w/Diff RBC 4.68 4.00 - 5.40 10/09 [facility] CBC w/Diff Hgb 14.4 11.5 - 16.0 10/09 [facility] CBC w/Diff Hct 42.0 37.0 - 47.0 10/09 [facility] CBC w/Diff MCV 89.8 80.0 - 100.0 10/09 [facility] CBC w/Diff MCH 30.8 27.0 - 34.0 10/09 [facility] CBC w/Diff MCHC 34.3 32.0 - 37.0 10/09 [facility] CBC w/Diff RDW 15.0 11.5 - 16.0 10/09 [facility] CBC w/Diff Plt 244 130 - 400 10/09 [facility] CBC w/Diff Neuts 76.9 35.0 - 80.0 10/09 [facility] CBC w/Diff Lymphs 17.3 10.0 - 55.0 10/09 [facility] CBC w/Diff Monos. 5.2 0.0 - 15.0 10/09 [facility] CBC w/Diff Eos. 0.2 0.0 - 9.0 10/09 [facility] CBC w/Diff Baso. 0.4 0.0 - 3.0 10/09 [facility] CBC w/Diff ABS Neut 4.8 1.7 - 8.6 10/09 [facility] CBC w/Diff ABS Lymph 1.1 0.5 - 5.9 10/09 [facility] CBC w/Diff ABS Porter 0.3 0.0 - 1.6 10/09 [facility] CBC w/Diff ABS Eos 0.0 0.0 - 1.0 10/09 [facility] CBC w/Diff ABS Baso 0.0 0.0 - 0.3 10/09 [facility] Special Chemistry Vit B12 553 213 - 816 10/09 [facility] Special Chemistry Folate 4.6 10/09 [facility] Culture Blood Culture Blood No growth at 5 days.
W hen performed, GIOVANNI values are reported in mcg/ml.
10/09 [facility] Culture Blood Culture Blood No growth at 5 days.
W hen performed, GIOVANNI values are reported in mcg/ml.
10/09 [facility] Blood Cult Blood Cult Final: No growth at 5 days. 10/09 When performed, GIOVANNI values are reported in mcg/ml. [facility] Blood Cult Blood Cult Final: No growth at 5 days. 10/09 When performed, GIOVANNI values are reported in mcg/ml. [facility] COVFLURSV PCR COVID/Flu/RS V Source [employer] Swab 10/09 [facility] COVFLURSV PCR COVID19/SARS -CoV-2 PCR Result NEGATIVE Negative 10/09 The Xpert Xpress SARS-CoV-2 test is a rapid, real time RT-PCR test intended for the qualitative detection of nucleic acid from the SARS-CoV-2 in upper respiratory specimens collected from individuals suspected of COVID-19 by their healthcare provider. Approved for use under an Emergency Use Authorization (EUA) Only. Positive results are indicative of active infection with SARS-CoV-2; clinical correlation with patient history and other diagnostic information is necessary to determine patient infection status. Positive results do not rule out bacterial infection or co-infection with other viruses. Negative results do not preclude SARS-CoV-2 infection and should not be used as the sole basis for treatment or other patient management decisions. [facility] COVFLURSV PCR Influenza A, PCR NEGATIVE Negative 10/09 [facility] COVFLURSV PCR Influenza B, PCR NEGATIVE Negative 10/09 [facility] COVFLURSV PCR RSV, PCR NEGATIVE Negative 10/09 [facility] TSH/FT4 Rflx TSH 2.012 0.350 - 4.940 10/09 [facility] Troponin-I Troponin I <0.01 - <=0.30 10/09 [facility] BNP B-Natriureti c Peptide 29.9 - <=100.0 10/09 [facility] CMP Sodium 141 136 - 145 10/09 [facility] CMP Potassium 4.5 3.5 - 5.1 10/09 [facility] CMP Chloride 102 98 - 107 10/09 [facility] CMP CO2 26 23 - 31 10/09 [facility] CMP Glucose Level 114 80 - 115 10/09 [place] [employer] (ADA) Guidelines: Optimal fasting blood glucose is below 100 mg/dL. A person with pre-diabetes has a fasting blood glucose of 100-125. [facility] CMP BUN 29 10 - 20 10/09 H [facility] CMP Creatinine 0.74 0.57 - 1.25 10/09 Result is ID-GC/MS standardized [facility] CMP Anion Gap 18 10 - 20 10/09 [facility] CMP Calcium 9.7 8.4 - 10.2 10/09 [facility] CMP Protein, Total 6.6 6.0 - 8.3 10/09 [facility] CMP Albumin 3.8 3.5 - 5.0 10/09 [facility] CMP Alkphos 118 40 - 150 10/09 [facility] CMP ALT 38 6 - 55 10/09 [facility] CMP AST 32 5 - 34 10/09 [facility] CMP Bili Total 1.2 0.2 - 1.2 10/09 [facility] CMP eGFR Non- Am >60 10/09 NORMALIZED FOR ID-GC/MS STANDARDIZED CREATININE (NON-AF AMR=NON-AFRIC AN SAMOAN, AF AMR=) KIDNEY DAMAGE STAGES FROM [facility] STAGE 1 and 2 >60 mL/min/1.73 square meters STAGE 3 30-59 mL/min/1.73 square meters STAGE 4 15-29 mL/min/1.73 square meters STAGE 5 <14 mL/min/1.73 square meters In accordance with recommendatio ns from the NKF-ASN Task Force, the laboratory is in the process of updating its eGFR calculation to the 2020 CKD-EPI creatinine equation that estimates kidney function without a race variable. [facility] CMP eGFR Afr/Amer >60 10/09 NORMALIZED FOR ID-GC/MS STANDARDIZED CREATININE (NON-AF AMR=NON-AFRIC AN SAMOAN, AF AMR=) KIDNEY DAMAGE STAGES FROM [facility] STAGE 1 and 2 >60 mL/min/1.73 square meters STAGE 3 30-59 mL/min/1.73 square meters STAGE 4 15-29 mL/min/1.73 square meters STAGE 5 <14 mL/min/1.73 square meters [facility] CMP Globulin 2.8 2.3 - 3.5 10/09 [facility] CMP A/G Ratio 1.4 0.8 - 1.6 10/09 [facility] CMP Heme Index Negative 10/09 [facility] CMP Lipemia Index Negative 10/09 [facility] CMP Drug Calc Weight (kg) 36.281 10/09 [facility] CMP Height (cm) 157.480 10/09 [facility] Lipase Lipase 10.0 8.0 - 78.0 10/09 [facility] Mg Mg 2.1 1.6 - 2.6 10/09 [facility] Mg Heme Index Negative 10/09 [facility] Phosphorus Phosphorus 4.4 2.3 - 4.7 10/09 [facility] Phosphorus Heme Index Negative 10/09 [facility] Phosphorus Lipemia Index Negative 10/09 [facility] Lactic Rflx Lactic Acid 1.31 0.50 - 2.00 10/09 [facility] Lactic Rflx Heme Index Negative 10/09 [facility] Lactic Rflx Lipemia Index Negative 10/09 [facility] Ammonia Level Ammonia Level 19.00 18.00 - 72.00 10/09 [facility] Ammonia Level Heme Index Negative 10/09 [facility] PT PT 10.8 10.0 - 12.3 10/09 [facility] PT INR 0.95 10/09 INR THERAPEUTIC RANGE: Use of the INR should be limited to therapeutic monitoring of patients on stable long-term warfarin therapy. Prophylaxis/t reatment of venous thromboemboli sm .. INR 2-3 Prophylaxis/t reatment of pulmonary embolism .......... INR 2-3 Prevention of systemic embolism from atrial fibrillation, myocardial infarction, tissue heart valves, valvular heart disease, and recurrent systemic embolism ............. ....INR 2-3 Prevention of systemic embolism from mechanical prosthetic heart valves ............. ............. ....... ............. ............. ..INR 2.5-3.5 [facility] PTT PTT 27.5 25.5 - 36.0 10/09 Interpretive data for PTT-APTT: For patients receiving unfractionate d heparin the therapeutic range is 65.2-86.8 seconds as measured by the APTT which roughly corresponds to the recommended heparin concentration of 0.3-0.7 IU/mL as measured by the anti Xa-assay. For patients on direct thrombin inhibitors, the APTT therapeutic range is 46.2-77.0 seconds. [facility] CBC w/Diff WBC 7.5 4.8 - 10.8 10/09 [facility] CBC w/Diff RBC 5.16 4.00 - 5.40 10/09 [facility] CBC w/Diff Hgb 15.9 11.5 - 16.0 10/09 [facility] CBC w/Diff Hct 46.7 37.0 - 47.0 10/09 [facility] CBC w/Diff MCV 90.6 80.0 - 100.0 10/09 [facility] CBC w/Diff MCH 30.8 27.0 - 34.0 10/09 [facility] CBC w/Diff MCHC 34.0 32.0 - 37.0 10/09 [facility] CBC w/Diff RDW 14.7 11.5 - 16.0 10/09 [facility] CBC w/Diff Plt 256 130 - 400 10/09 [facility] CBC w/Diff Neuts 83.5 35.0 - 80.0 10/09 H [facility] CBC w/Diff Lymphs 11.7 10.0 - 55.0 10/09 [facility] CBC w/Diff Monos. 4.5 0.0 - 15.0 10/09 [facility] CBC w/Diff Eos. 0.0 0.0 - 9.0 10/09 [facility] CBC w/Diff Baso. 0.3 0.0 - 3.0 10/09 [facility] CBC w/Diff ABS Neut 6.3 1.7 - 8.6 10/09 [facility] CBC w/Diff ABS Lymph 0.9 0.5 - 5.9 10/09 [facility] CBC w/Diff ABS Porter 0.3 0.0 - 1.6 10/09 [facility] CBC w/Diff ABS Eos 0.0 0.0 - 1.0 10/09 [facility] CBC w/Diff ABS Baso 0.0 0.0 - 0.3 10/09 [facility] CBC w/Diff CBC Scan Auto Diff 10/09 Verified by Discern [facility] Cardiac B-Natriureti c Peptide 29.9 10/09 [facility] Cardiac Troponin I <.01 10/09 [facility] Cardiac CK 309 40 - 140 10/09 [facility] Cardiac CKMB% 4.2 10/09 [facility] Cardiac CK MB 12.9 0.0 - 3.4 10/09 [facility] Coag PTT 27.5 25.5 - 36.0 10/09 [facility] Coag PT 10.8 10.0 - 12.3 10/09 [facility] Coag INR 0.95 10/09 [facility] General Chemistry Protein, Total 6.6 6.0 - 8.3 10/09 [facility] General Chemistry Albumin 3.8 3.5 - 5.0 10/09 [facility] General Chemistry AST 32 5 - 34 10/09 [facility] General Chemistry ALT 38 6 - 55 10/09 [facility] General Chemistry Alkphos 118 40 - 150 10/09 [facility] General Chemistry Bili Total 1.2 0.2 - 1.2 10/09 [facility] General Chemistry Globulin 2.8 2.3 - 3.5 10/09 [facility] General Chemistry A/G Ratio 1.4 0.8 - 1.6 10/09 [facility] General Chemistry Lactic Acid 1.31 0.50 - 2.00 10/09 [facility] General Chemistry Mg 2.1 1.6 - 2.6 10/09 [facility] General Chemistry Ammonia Level 19.00 18.00 - 72.00 10/09 [facility] General Chemistry Phosphorus 4.4 2.3 - 4.7 10/09 [facility] General Chemistry Lipase 10.0 8.0 - 78.0 10/09 [facility] Special Chemistry TSH 2.012 0.350 - 4.940 10/09 [facility] Microbiolo gy/Serolog y Microbiology /Serology [employer] Swab *NA* (10/08/21 8:25 PM)
Negati ve (10/08/21 8:25 PM)
Negati ve (10/08/21 8:25 PM)
Negati ve (10/08/21 8:25 PM)
Negati ve (10/08/21 8:25 PM)
10/09 [facility] Diagnostic Reports Report Value Date Source CT Head wo Con Reason For Exam Altered Mental status, CT Head wo Con Reason for exam: Altered Mental status, COMPARISON: 10/09/2021 TECHNIQUE: 5 mm contiguous axial images were obtained from the skull base to the vertex in both bone and soft tissue algorithm. Coronal reformats were obtained. The protocol utilizes one or more the following dose reduction techniques: Automated exposure control, adjustment of the mA and/or kV according to patient size, and/or use of iterative reconstruction technique. FINDINGS: No significant change in right cerebral convexity hypodense extra-axial fluid collection. This measures up to 0.8 cm overlying the right frontal convexity. No evidence of midline shift. Mild age-related volume loss. Nonspecific periventricular and subcortical white matter hypoattenuation from moderate chronic small vessel ischemic changes noted. The ventricles are stable in size and configuration. The basal cisterns are patent. Intracranial vascular calcifications noted. The calvarium is intact. The paranasal sinuses and mastoid air cells are relatively clear. IMPRESSION: 1. Stable right cerebral convexity extra-axial fluid collection compared to prior study from 10/09/2021. No significant midline shift. 2. Moderate chronic small vessel ischemic changes. 3. Mild age-related volume loss. * * * F I N A L * * * Dictated by: Davy Minor MD, Electronically signed by: Davy Minor MD Transcribed by:PU , , , S: 10/20/2021 17:30 * * * F I N A L * * * 10/21/2021 [facility] XR Swallow Function Video or Cine Reason For Exam evaluate oropharyngeal dysphagia INDICATION: evaluate oropharyngeal dysphagia, TECHNIQUE: Fluoroscopy was provided during evaluation with speech pathology. The patient was given varying consistencies of thin and thick barium as well as barium coated crackers. FINDINGS: No aspiration or penetration with thin, nectar, puree, or solids. Tablet was achieved by the patient. Delayed oral phase. Please refer to the full speech pathology notes in the chart. Fluoroscopy time: 2 minutes 35 seconds Dose Area Product: 70.2 uGym2 IMPRESSION: Modified barium swallow findings as detailed above. Please see the speech pathology report for further details. * * * F I N A L * * * Dictated by: Elieser Green MD Electronically signed by: Elieser Green MD Transcribed by:GIOVANY , , , S: 10/12/2021 10:43 * * * F I N A L * * * 10/12/2021 [facility] MR Brain wo+w Con Reason For Exam fall, subdural hematoma EXAM: MR Brain wo+w Con CLINICAL HISTORY: fall, subdural hematoma COMPARISON: CT exam dated 10/09/2021 TECHNIQUE: Routine multiplanar multisequence images of the brain. Images were obtained both before and after the administration of IV contrast. 6 cc ProHance IV contrast was administered. FINDINGS: Mild central parenchymal volume loss is noted for patient's stated age. No evidence for acute infarct. No significant midline shift. No gross mass or mass effect identified apart from that seen of the right-sided subdural hematoma underlying the right frontal and parietal convexities. Vascular flow voids appear grossly patent. No mild to moderate periventricular white matter changes noted. No intracranial edema is identified. Right-sided near cervical hemispheric subdural hematoma noted measuring up to 8 mm. There is a tiny amount seen on the left as well which could be chronic in nature measuring approximately 3 mm within the left anterior frontal region. No additional intracranial hemorrhage is suggested. No definite abnormal intracranial enhancement is identified. IMPRESSION: Small right-sided subdural hematoma without significant midline shift or downward herniation associated. There is a trace left anterior medial frontal subdural hematomas well. Follow-up as clinically warranted. No additional acute intracranial process suggested. * * * F I N A L * * * Dictated by: Prakash Hurtado MD, Physician Electronically signed by: Prakash Hurtado MD Transcribed by:GIOVANY , , S: 10/10/2021 17:13 * * * F I N A L * * * 10/10/2021 [facility] CT C Spine wo Con Reason For Exam fall EXAM: CT C Spine wo Con CLINICAL HISTORY: Mechanical ground-level fall. Patient was found on floor at home by [place] police [employer].. Failure to thrive. COMPARISON: none TECHNIQUE: CT of the cervical spine without contrast. Transaxial images were obtained from the skull base through the cervical spine with multiplanar reconstruction. CT dose reduction technique utilized: Automated exposure control and/or manual dose reduction techniques to keep radiation dose as low as reasonably achievable. FINDINGS: There is no evidence of vertebra fracture or malalignment. No abnormalities are seen within the paravertebral soft tissues. The appearance and alignment of C1 and C2 is normal. C4/C5, C5/C6 and C6/C7 disc space narrowing with moderate lateral foraminal narrowing bilaterally. No central spinal stenosis. IMPRESSION: No evidence of acute vertebra fracture or malalignment of the cervical spine. C4/C5, C5/C6 and C6/C7 disc space narrowing with moderate lateral foraminal narrowing bilaterally. No central spinal stenosis. * * * F I N A L * * * Dictated by: Dena Skaggs MD Electronically signed by: Dena Skaggs MD Transcribed by:PU , , , S: 10/09/2021 10:02 * * * F I N A L * * * 10/09/2021 [facility] CT T Spine wo Con Reason For Exam fall EXAM: CT T Spine wo Con CLINICAL HISTORY: fall. Found down. Confusion. Multiple body bruises. COMPARISON: None TECHNIQUE: CT of the thoracic spine was performed. Thin section transaxial images through the thoracic spine with reformatted images in the coronal and sagittal plane were performed. Automatic exposure control was used. FINDINGS: There is no evidence of fracture or malalignment. Vertebral body heights are preserved. No paravertebral soft tissue abnormality. 10 x 9 mm right lower lobe lung nodule. The rest of the included portions of the lungs are clear. IMPRESSION: No evidence of acute fracture or malalignment of the thoracic spine. 10 mm right lower lobe lung nodule. Fleischner Society criteria recommends 3 month follow-up chest CT, PET/CT, or percutaneous biopsy. * * * F I N A L * * * Dictated by: Janneth Alford DO Electronically signed by: Janneth Alford DO Transcribed by:Pearl ADAIR: 10/09/2021 10:05, , S: 10/09/2021 10:08 * * * F I N A L * * * 10/09/2021 [facility] CT L Spine wo Con Reason For Exam fall EXAM: CT L Spine wo Con CLINICAL HISTORY: fall. Found down. Confusion. Multiple bruises. COMPARISON: None TECHNIQUE: CT of the lumbar spine was performed. Thin section transaxial images through the lumbar spine with reformatted images in the coronal and sagittal plane were performed. All CT scans at this [facility] employ automatic and/or manual dose reduction technique to keep radiation dose as low as reasonably achievable. FINDINGS: There is no evidence of fracture or malalignment. Vertebral body heights are preserved. No paravertebral soft tissue abnormality. Right lower lobe lung nodule measures 10 mm as described in CT thoracic spine Disc space narrowing at L4-5 and L5-S1. Partially calcified disc protrusions are seen centrally at these levels leading to mild canal stenosis and neural foraminal narrowing. IMPRESSION: No evidence of acute fracture or malalignment of the lumbar spine. Degenerative changes at L4-5 and L5-S1 with mild canal stenosis. * * * F I N A L * * * Dictated by: Janneth Alford DO Electronically signed by: Janneth Alford DO Transcribed by:GIOVANY , , S: 10/09/2021 10:16 * * * F I N A L * * * 10/09/2021 [facility] CT Head wo Con Reason For Exam followup subdural hematoma [facility] Final Report Clinical History and Study Details: followup subdural hematoma TECHNIQUE: Clinical Event : F/U SUBDURAL HEMATOMA Unenhanced contiguous axial CT sections of the brain were obtained from the skull base to the vertex. A radiation dose optimization technique was used for this scan FINDINGS: Comparison made to previous study dated 10/08/2021. Intermediate density 7 mm thick right frontal subdural collection again noted, likely chronic subdural hemorrhage. There is mild sulcal effacement without significant midline shift. Generalized atrophy is noted with microvascular ischemic disease. The ventricles are not dilated out of proportion to sulci. The basilar cisterns are preserved. The craniocervical junction is normal. IMPRESSION: Stable appearance of chronic right frontal subdural hemorrhage. No significant midline shift. Report Dictated by Radiologist: BERLIN MARTINEZ M.D. Diplomate [place] [employer] Requisition#: [id number] Electronically Signed by BERLIN MARTINEZ 2021-10-09 03:05:[id number] by: [email or web address] * * * F I N A L * * * Dictated by: Berlin Martinez MD, MD Electronically signed by: Berlin Martinez MD Transcribed by:RICHARD , , S: 10/09/2021 03:05 * * * F I N A L * * * 10/09/2021 [facility] CT Head wo Con Reason For Exam Altered level of conciousness CLINICAL HISTORY: Altered level of conciousness ADDITIONAL HISTORY: . COMPARISON: No relevant prior exams available. TECHNIQUE: Serial axial CT scan of the head are obtained without intravenous contrast. Coronal reconstructed images were submitted. All CT scans at this hospital employ automatic and/or manual dose reduction techniques to keep radiation dose as low as reasonably achievable. FINDINGS: Moderate central parenchymal volume loss is noted. Encephalomalacia in the left frontal region. Marked periventricular white matter changes demonstrated. There is a chronic extra-axial collection noted within the right frontal region measuring 8 mm with mild underlying mass effect. No evidence for acute infarct identified. No additional definite hemorrhage is seen within the cranium. No midline shift. Basilar cisterns are patent. No hydrocephalus. The visualized paranasal sinuses and mastoid air cells are well-aerated. The calvarium is intact. . IMPRESSION: Likely chronic right-sided extra-axial subdural hematoma within the orbital region the right frontal lobe with minimal underlying mass effect. No definite acute intracranial hemorrhage. Chronic changes otherwise seen.. * * * F I N A L * * * Dictated by: Prakash Hurtado MD, Physician Electronically signed by: Prakash Hurtado MD Transcribed by:GIOVANY , , S: 10/08/2021 22:32 * * * F I N A L * * * 10/09/2021 [facility] Electrocardiogram Stationary ECG Study [facility] [address] [place] [address] Test Date: 2021-10-08 Pat Name: SAQIB DEL VALLE Department: Room: 121 Gender: F Radio Host: : 1950 Requested By: Camacho Linn Order Number: [id number] Reading MD: Navid Mello Measurements Intervals [place] Rate: 81 P: 77 OR: 173 QRS: 74 QRSD: 71 T: 84 QT: 389 QTc: 426 Severity: Normal ECG Interpretive Statements SINUS RHYTHM Normal ECG No previous ECG available for comparison Electronically Signed On 10-09-2021 10:43:42 MST by Navid Mello 10/09/2021 [facility] Electrocardiogram Stationary ECG Study [facility] [address] [place] [address] Test Date: 2021-10-08 [facility] Department: Room: 121 Gender: F Radio Host: : 1950 Requested By: Jason Linn Order Number: [id number] Reading MD: Navid Mello Measurements Intervals [place] Rate: 80 P: 76 OR: 165 QRS: 63 QRSD: 70 T: 68 QT: 367 QTc: 402 Severity: Abnormal ECG Interpretive Statements SINUS RHYTHM WITH OCCASIONAL SUPRAVENTRICULAR PREMATURE COMPLEXES LEFT ATRIAL ENLARGEMENT Electronically Signed On 10-09-2021 10:43:50 MST by Navid Mello 10/09/2021 [facility] XR Hip w Pelvis 2 Views Bilat Reason For Exam fall, hip pain XR Hip w Pelvis 2 Views Bilat Reason for exam: fall, hip pain COMPARISON: None FINDINGS: AP view of the pelvis was obtained. Additional AP and frog leg lateral views of the hips were obtained. No evidence of acute fracture or dislocation of the pelvis or hips. The sacroiliac and pubic symphysis joints are maintained. Degenerative changes of the lower lumbar spine noted with loss of disc space height and marginal osteophytes. Vascular calcifications noted. IMPRESSION: 1. No evidence of acute fracture or dislocation of the pelvis or hips. * * * F I N A L * * * Dictated by: Davy Minor MD, MD Electronically signed by: Davy iMnor MD Transcribed by:GIOVANY , , , S: 10/09/2021 09:28 * * * F I N A L * * * 10/09/2021 [facility] XR Chest 1 View AP or PA Reason For Exam SOB; Weakness XR Chest 1 View AP or PA Reason for exam: SOB; Weakness COMPARISON: None FINDINGS: AP view of the chest was obtained. Overlying monitoring wires noted. The cardiomediastinal silhouette is within normal limits. A nodular density projects over the right lower lung field measuring approximate 1.4 cm. The remaining lung phan are clear. No pleural effusion. No pneumothorax. No acute bony abnormality. IMPRESSION: 1. No evidence of acute cardiopulmonary process. 2. Right lower lung field nodular density measuring approximate 1.4 cm may represent pulmonary nodule. Recommend further evaluation with CT of the chest without contrast. Notification sent via PACs as per institutional protocol * * * F I N A L * * * Dictated by: Davy Minor MD, MD Electronically signed by: Davy Minor MD Transcribed by:GIOVANY , , , S: 10/09/2021 09:53 * * * F I N A L * * * 10/09/2021 [facility] Consultation Notes Results Value Date Source Discharge Instructions Document [facility] [address] [place] [address] SAQIB MCKEON :1950 (EV) Visit Date:10/09/2021 Discharge to External Facility Patient Information Name:SAQIB MCKEON Address: [address] [place] [id number] Sex:F Date of :1950 Emergency Contact:AIDEN MONTANO Your Care Team Admitting Physician - Emmanuel Booth DO Attending Physician - Emmanuel Booth DO Consulting Physician - AlhabachJonathan MD, M. Osman DO Lifetime Physician(PCP) - PCP, No Discharge Diagnosis Metabolic encephalopathy Concussion Chronic subdural hematoma Protein calorie malnutrition Gait instability Recurrent falls Follow-up Instructions We would like to thank you for allowing us to assist you with your healthcare needs. The following includes follow-up information and discharge to external facility order information. You May Need to Schedule the Following Appointments Follow Up with Nohemi Milton DO When Within 1 to 3 days Where: [address] [facility] [address] [place] [address]- External Facility Discharge Orders Discharge Orders: Discharge: Electronically Signed By: Emmanuel Booth DO, When: Now, Disposition: Rehabilitation Facility Discharge Code Status Full Code: Electronically Signed By: Emmanuel Booth DO Discharge Activity: Electronically Signed By: Emmanuel Booth DO, As tolerated Discharge TB Status: Electronically Signed By: Emmanuel Booth DO, Special Instructions: The patient is free from signs of active pulmonary TB External Facility Discharge Diet: Electronically Signed By: Emmanuel Booth DO, Diet Type: Dysphagia Diet Level 4 Pureed Discharge Therapies: Electronically Signed By: Emmanuel Booth DO, Physical Therapy Eval and Treat, OT to eval and treat Discharge Planning-Case Management Consult: Electronically Signed By: Emmanuel Booth DO Patient Discharge Goal: Other: home with family versus SNF pending PT eval and medical progress Allergies [place] (NAUSEA) Wheat (Nausea) No Known Medication Allergies Medications Patient has received the indicated patient education materials/instructions and medication list and has verbalized understanding. Education Materials Preventing Exposure to Secondhand Smoke, Adult Secondhand smoke is smoke that comes from burning tobacco. It includes smoke from cigarettes, pipes, or cigars. Being exposed to secondhand smoke is as dangerous as smoking. Common places you may be exposed to secondhand smoke include: Work. Public places, like restaurants, shopping centers, and rodriguez. Home, especially if you live in an apartment building. How can secondhand smoke affect me There is no safe level of secondhand smoke. Smoke from cigarettes contains thousands of chemicals, including chemicals that are known to cause cancer. Secondhand smoke can cause many health problems, such as: Cancer. Heart disease. Stroke. problems, such as loss (miscarriage), low weight, and early (premature). What actions can I take to prevent exposure to secondhand smoke Do not smoke. Keep your home smoke-free. Do not allow smoking in your car. Avoid public places where smoking is allowed. Talk to your employer about your company's policies on smoking. Your workplace should have a policy smoking areas from nonsmoking areas. Smoking areas should have a system for ventilating and cleaning the air. Where to find more information Centers for Disease Control and Prevention (CDC): https://www.cdc.gov/tobacco/ [place] [employer] Society: https://www.cancer.org [place] Heart Association: https://www.heart.org Summary Secondhand smoke is smoke that comes from burning tobacco. Secondhand smoke exposes you to the dangers of smoking, even if you are not the one smoking. There is no safe level of secondhand smoke. Several chemicals in secondhand smoke are known to cause cancer. Secondhand smoke can also cause many other health problems. To prevent exposure to secondhand smoke, do not smoke, discourage others from smoking, keep your home and car smoke-free, and avoid places where smoking is allowed. This information is not intended to replace advice given to you by your health care provider. Make sure you discuss any questions you have with your health care provider. Document Revised: 01/16/2020 Document Reviewed: 06/01/2018 [employer] Patient Education ? 2021 [employer] Fall Prevention in the Home, Adult Falls can cause injuries and can affect people from all age groups. There are many simple things that you can do to make your home safe and to help prevent falls. Ask for help when making these changes, if needed. What actions can I take to prevent falls General instructions Use good lighting in all rooms. Replace any light bulbs that burn out. Turn on lights if it is dark. Use night-lights. Place frequently used items in xxvy-zk-umthn places. Lower the shelves around your home if necessary. Set up furniture so that there are clear paths around it. Avoid moving your furniture around. Remove throw rugs and other tripping hazards from the floor. Avoid walking on wet floors. Fix any uneven floor surfaces. Add color or contrast paint or tape to grab bars and handrails in your home. Place contrasting color strips on the first and last steps of stairways. When you use a stepladder, make sure that it is completely opened and that the sides are firmly locked. Have someone hold the ladder while you are using it. Do not climb a closed stepladder. Be aware of any and all pets. What can I do in the bathroom Keep the floor dry. Immediately clean up any water that spills onto the floor. Remove soap buildup in the tub or shower on a regular basis. Use non-skid mats or decals on the floor of the tub or shower. Attach bath mats securely with double-sided, non-slip rug tape. If you need to sit down while you are in the shower, use a plastic, non-slip stool. Install grab bars by the toilet and in the tub and shower. Do not use towel bars as grab bars. What can I do in the bedroom Make sure that a bedside light is easy to reach. Do not use oversized bedding that drapes onto the floor. Have a firm chair that has side arms to use for getting dressed. What can I do in the kitchen Clean up any spills right away. If you need to reach for something above you, use a sturdy step stool that has a grab bar. Keep electrical cables out of the way. Do not use floor georgian or wax that makes floors slippery. If you must use wax, make sure that it is non-skid floor wax. What can I do in the stairways Do not leave any items on the stairs. Make sure that you have a light switch at the top of the stairs and the bottom of the stairs. Have them installed if you do not have them. Make sure that there are handrails on both sides of the stairs. Fix handrails that are broken or loose. Make sure that handrails are as long as the stairways. Install non-slip stair treads on all stairs in your home. Avoid having throw rugs at the top or bottom of stairways, or secure the rugs with carpet tape to prevent them from moving. Choose a carpet design that does not hide the edge of steps on the stairway. Check any carpeting to make sure that it is firmly attached to the stairs. Fix any carpet that is loose or worn. What can I do on the outside of my home Use bright outdoor lighting. Regularly repair the edges of walkways and driveways and fix any cracks. Remove high doorway thresholds. Trim any shrubbery on the main path into your home. Regularly check that handrails are securely fastened and in good repair. Both sides of any steps should have handrails. Install guardrails along the edges of any raised decks or porches. Clear walkways of debris and clutter, including tools and rocks. Have leaves, snow, and ice cleared regularly. Use sand or salt on walkways during winter months. In the garage, clean up any spills right away, including grease or oil spills. What other actions can I take Wear closed-toe shoes that fit well and support your feet. Wear shoes that have rubber soles or low heels. Use mobility aids as needed, such as canes, walkers, scooters, and crutches. Review your medicines with your health care provider. Some medicines can cause dizziness or changes in blood pressure, which increase your risk of falling. Talk with your health care provider about other ways that you can decrease your risk of falls. This may include working with a physical therapist or associate trainer to improve your strength, balance, and endurance. Where to find more information Centers for Disease Control and PreventionALTA: https://www.cdc.gov [employer] [place] on Aging: https://es9smoo.jas.nih.gov Contact a health care provider if: You are afraid of falling at home. You feel weak, drowsy, or dizzy at home. You fall at home. Summary There are many simple things that you can do to make your home safe and to help prevent falls. Ways to make your home safe include removing tripping hazards and installing grab bars in the bathroom. Ask for help when making these changes in your home. This information is not intended to replace advice given to you by your health care provider. Make sure you discuss any questions you have with your health care provider. Document Revised: 04/07/2018 Document Reviewed: 12/08/2017 [employer] Patient Education ? 2020 [employer] Confusion Confusion is the inability to think with your usual speed or clarity. Confusion can be caused by many things. People who are confused often describe their thinking as cloudy or unclear. Confusion can also include feeling disoriented. This means you are [...] be caused by medical conditions such as: Infections, such as a urinary tract infection (UTI). Low levels of oxygen, which can develop from conditions such as long-term lung disorders. Decrease in brain function due to dementia and other conditions that affect the brain, such as seizures, strokes, brain tumors, or head injuries. Mental health conditions, like panic attacks, anxiety, depression, and hallucinations. Confusion may also be caused by physical factors such as: Loss of fluid (dehydration) or an imbalance of salts and minerals in the body (electrolytes). Lack of certain nutrients like niacin, thiamine, or other B vitamins. Fever or hypothermia, which is a sudden drop in body temperature. Low or high blood sugar. Low or high blood pressure. Other causes include: Lack of sleep or changes in routine or surroundings, such as when traveling or staying in a hospital. Using too much alcohol, drugs, or medicine. Side effects of medicines, or taking medicines that affect other medicines (drug interactions). Follow these instructions at home: Pay attention to your symptoms. Tell your health care provider about any changes or if you develop new symptoms. Follow these instructions to control or treat symptoms. Ask a family member or friend for help if needed. Medicines Take rhlm-qhz-ywnjhzh and prescription medicines only as told by your health care provider. Ask your health care provider about changing or stopping any medicines that may be causing your confusion. Avoid pain medicines or sleep medicines until you have fully recovered. Use a pillbox or an alarm to help you take the right medicines at the right time. Lifestyle Eat a balanced diet that includes fruits and vegetables. Get enough sleep. For most adults, this is 7 9 hours each night. Do not drink alcohol. Do not become isolated. Spend time with other people and make plans for your days. Do not drive until your health care provider says that it is safe to do so. Do not use any products that contain nicotine or tobacco, such as cigarettes, e-cigarettes, and chewing tobacco. If you need help quitting, ask your health care provider. Stop other activities that may increase your chances of getting hurt. These may include some work duties, sports activities, swimming, or bike riding. Ask your health care provider what activities are safe for you. Tips for caregivers Find out if the person is confused. Ask the person to state his or her name, age, and the date. If the person is unsure or answers incorrectly, he or she may be confused and need assistance. Always introduce yourself, no matter how well the person knows you. Remind the person of his or her location. Place a calendar and clock near the person who is confused. Keep a regular schedule. Make sure the person has plenty of light during the day and sleep at night. Talk about current events and plans for the day. Keep the environment calm, quiet, and peaceful. Help the person do the things that he or she is unable to do. These include: Taking medicines. Keeping medical appointments. Helping with household duties, including meal preparation. Running errands. Get help if you need it. There are several support groups for caregivers. If the person you are helping needs more support, consider day care, extended-care programs, or a [facility] facility. The person's health care provider may be able to help evaluate these options. General instructions Monitor yourself for any conditions you may have. These can include: Checking your blood glucose levels if you have diabetes. Maintaining a healthy weight. Monitoring your blood pressure if you have hypertension. Monitoring your body temperature if you have a fever. Keep all follow-up visits. This is important. Contact a health care provider if: You have new symptoms or your symptoms get worse. Get help right away if you: Feel that you are not able to care for yourself. Develop severe headaches, repeated vomiting, seizures, blackouts, or slurred speech. Have increasing confusion, weakness, numbness, restlessness, or personality changes. Develop a loss of balance, have marked dizziness, feel uncoordinated, or fall. Develop severe anxiety, or you have delusions or hallucinations. These symptoms may represent a serious problem that is an emergency. Do not wait to see if the symptoms will go away. Get medical help right away. Call your local emergency services (911 in the [place] Do not drive yourself to the hospital. Summary Confusion is the inability to think with your usual speed or clarity. People who are confused often describe their thinking as cloudy or unclear. Confusion can also include having trouble remembering, paying attention, or making decisions. Confusion may come on quickly or develop slowly over time, depending on the cause. There are many different causes of confusion. Ask for help from family members or friends if you are unable to take care of yourself. This information is not intended to replace advice given to you by your health care provider. Make sure you discuss any questions you have with your health care provider. Document Revised: 08/19/2020 Document Reviewed: 08/19/2020 [employer] Patient Education ? 2021 [employer]. Failure to Thrive, Adult Failure to thrive is a group of symptoms that affect adults, including the elderly. These symptoms include eating too little and losing weight. People who have this may not want to be with friends, or they may not want to eat or drink. This condition is not a normal part of getting older. What are the causes A disease, such as dementia, diabetes, cancer, or lung disease. A health problem, such as a vitamin deficiency or a heart problem. A disorder, such as sadness (depression). A disability. Medicines. Having tooth or mouth problems. Neglect or being treated badly. In some cases, the cause may not be known. What are the signs or symptoms Loss of more than 5% of your body weight. Being more tired than normal after an activity. Having trouble getting up after sitting. Not feeling hungry. Not getting out of bed. Not wanting to do your normal activities. Sadness. Getting infections often. Bedsores. Taking a long time to get better after an infection, injury, or a surgery. Weakness. How is this treated Treatment for this condition depends on the cause. It may be treated by: Treating a disease or disorder that is causing symptoms. Having talk therapy or taking medicine to treat sadness. Eating better, such as eating more often or taking nutritional supplements. Changing or stopping a medicine. Having physical or occupational therapy. It often takes a team of doctors to find the right treatment. Follow these instructions at home: Take ooyn-cvd-szuqmfc and prescription medicines only as told by your doctor. Eat a healthy diet. Make sure that you eat enough. Ask your doctor how much you should eat. Be active. Do exercises that make you stronger (strength training). A physical therapist can help to set up a program that fits you. Make sure that you are safe at home. Have a plan for what to do if you cannot make decisions for yourself. Contact a doctor if you: Are not able to eat well. Are not able to move around. Feel very sad. Feel very hopeless. Get help right away if: You think about ending your life. You cannot eat or drink. You do not get out of bed. Staying at home is not safe. You have a fever. Summary Failure to thrive is a group of symptoms that affect adults, including the elderly. Symptoms include eating too little and losing weight. Take all medicines only as told by your doctor. Eat a healthy diet. Make sure that you eat enough. Ask your doctor how much you should eat. Be active. Do exercises that make you stronger. A physical therapist can help to set up a program that is right for you. This information is not intended to replace advice given to you by your health care provider. Make sure you discuss any questions you have with your health care provider. Document Revised: 12/26/2018 Document Reviewed: 12/26/2018 [employer] Patient Education ? 2021 [employer]. Wound Care, Adult Taking care of your wound properly can help to prevent pain, infection, and scarring. It can also help your wound heal more quickly. Follow instructions from your health care provider about how to care for your wound. Supplies needed: Soap and water. Wound cleanser. Gauze. If needed, a clean bandage (dressing) or other type of wound dressing material to cover or place in the wound. Follow your health care provider's instructions about what dressing supplies to use. Cream or ointment to apply to the wound, if told by your health care provider. How to care for your wound Cleaning the wound Ask your health care provider how to clean the wound. This may include: Using mild soap and water or a wound cleanser. Using a clean gauze to pat the wound dry after cleaning it. Do not rub or scrub the wound. Dressing care Wash your hands with soap and water for at least 20 seconds before and after you change the dressing. If soap and water are not available, use hand criminal lawyer. Change your dressing as told by your health care provider. This may include: Cleaning or rinsing out (irrigating) the wound. Placing a dressing over the wound or in the wound (packing). Covering the wound with an outer dressing. Leave any stitches (sutures), skin glue, or adhesive strips in place. These skin closures may need to stay in place for 2 weeks or longer. If adhesive strip edges start to loosen and curl up, you may trim the loose edges. Do not remove adhesive strips completely unless your health care provider tells you to do that. Ask your health care provider when you can leave the wound uncovered. Checking for infection Check your wound area every day for signs of infection. Check for: More redness, swelling, or pain. Fluid or blood. Warmth. Pus or a bad smell. Follow these instructions at home Medicines If you were prescribed an antibiotic medicine, cream, or ointment, take or apply it as told by your health care provider. Do not stop using the antibiotic even if your condition improves. If you were prescribed pain medicine, take it 30 minutes before you do any wound care or as told by your health care provider. Take vali-xvi-wxigtrw and prescription medicines only as told by your health care provider. Eating and drinking Eat a diet that includes protein, vitamin A, vitamin C, and other nutrient-rich foods to help the wound heal. Foods rich in protein include meat, fish, eggs, dairy, beans, and nuts. Foods rich in vitamin A include carrots and dark green, leafy vegetables. Foods rich in vitamin C include citrus fruits, tomatoes, broccoli, and peppers. Drink enough fluid to keep your urine pale yellow. General instructions Do not take baths, swim, use a hot tub, or do anything that would put the wound underwater until your health care provider approves. Ask your health care provider if you may take showers. You may only be allowed to take sponge baths. Do not scratch or pick at the wound. Keep it covered as told by your health care provider. Return to your normal activities as told by your health care provider. Ask your health care provider what activities are safe for you. Protect your wound from the sun when you are outside for the first 6 months, or for as long as told by your health care provider. Cover up the scar area or apply sunscreen that has an SPF of at least 30. Do not use any products that contain nicotine or tobacco, such as cigarettes, e-cigarettes, and chewing tobacco. These may delay wound healing. If you need help quitting, ask your health care provider. Keep all follow-up visits as told by your health care provider. This is important. Contact a health care provider if: You received a tetanus shot and you have swelling, severe pain, redness, or bleeding at the injection site. Your pain is not controlled with medicine. You have any of these signs of infection: More redness, swelling, or pain around the wound. Fluid or blood coming from the wound. Warmth coming from the wound. Pus or a bad smell coming from the wound. A fever or chills. You are nauseous or you vomit. You are dizzy. Get help right away if: You have a red streak of skin near the area around your wound. Your wound has been closed with alejandro, sutures, skin glue, or adhesive strips and it begins to open up and separate. Your wound is bleeding, and the bleeding does not stop with gentle pressure. You have a rash. You faint. You have trouble breathing. These symptoms may represent a serious problem that is an emergency. Do not wait to see if the symptoms will go away. Get medical help right away. Call your local emergency services (911 in the [place] Do not drive yourself to the hospital. Summary Always wash your hands with soap and water for at least 20 seconds before and after changing your dressing. Change your dressing as told by your health care provider. To help with healing, eat foods that are rich in protein, vitamin A, vitamin C, and other nutrients. Check your wound every day for signs of infection. Contact your health care provider if you suspect that your wound is infected. This information is not intended to replace advice given to you by your health care provider. Make sure you discuss any questions you have with your health care provider. Document Revised: 02/08/2020 Document Reviewed: 02/08/2020 [employer] Patient Education ? 2021 [employer] Fall Prevention in the Home, Adult Falls can cause injuries and can happen to people of all ages. There are many things you can do to make your home safe and to help prevent falls. Ask for help when making these changes. What actions can I take to prevent falls General Instructions Use good lighting in all rooms. Replace any light bulbs that burn out. Turn on the lights in dark areas. Use night-lights. Keep items that you use often in eypc-qw-obazu places. Lower the shelves around your home if needed. Set up your furniture so you have a clear path. Avoid moving your furniture around. Do not have throw rugs or other things on the floor that can make you trip. Avoid walking on wet floors. If any of your floors are uneven, fix them. Add color or contrast paint or tape to clearly keila and help you see: Grab bars or handrails. First and last steps of staircases. Where the edge of each step is. If you use a stepladder: Make sure that it is fully opened. Do not climb a closed stepladder. Make sure the sides of the stepladder are locked in place. Ask someone to hold the stepladder while you use it. Know where your pets are when moving through your home. What can I do in the bathroom Keep the floor dry. Clean up any water on the floor right away. Remove soap buildup in the tub or shower. Use nonskid mats or decals on the floor of the tub or shower. Attach bath mats securely with double-sided, nonslip rug tape. If you need to sit down in the shower, use a plastic, nonslip stool. Install grab bars by the toilet and in the tub and shower. Do not use towel bars as grab bars. What can I do in the bedroom Make sure that you have a light by your bed that is easy to reach. Do not use any sheets or blankets for your bed that hang to the floor. Have a firm chair with side arms that you can use for support when you get dressed. What can I do in the kitchen Clean up any spills right away. If you need to reach something above you, use a step stool with a grab bar. Keep electrical cords out of the way. Do not use floor georgian or wax that makes floors slippery. What can I do with my stairs Do not leave any items on the stairs. Make sure that you have a light switch at the top and the bottom of the stairs. Make sure that there are handrails on both sides of the stairs. Fix handrails that are broken or loose. Install nonslip stair treads on all your stairs. Avoid having throw rugs at the top or bottom of the stairs. Choose a carpet that does not hide the edge of the steps on the stairs. Check carpeting to make sure that it is firmly attached to the stairs. Fix carpet that is loose or worn. What can I do on the outside of my home Use bright outdoor lighting. Fix the edges of walkways and driveways and fix any cracks. Remove anything that might make you trip as you walk through a door, such as a raised step or threshold. Trim any bushes or trees on paths to your home. Check to see if handrails are loose or broken and that both sides of all steps have handrails. Install guardrails along the edges of any raised decks and porches. Clear paths of anything that can make you trip, such as tools or rocks. Have leaves, snow, or ice cleared regularly. Use sand or salt on paths during winter. Clean up any spills in your garage right away. This includes grease or oil spills. What other actions can I take Wear shoes that: Have a low heel. Do not wear high heels. Have rubber bottoms. Feel good on your feet and fit well. Are closed at the toe. Do not wear open-toe sandals. Use tools that help you move around if needed. These include: Canes. Walkers. Scooters. Crutches. Review your medicines with your doctor. Some medicines can make you feel dizzy. This can increase your chance of falling. Ask your doctor what else you can do to help prevent falls. Where to find more information Centers for Disease Control and Prevention, STEAD[employer]: www.cdc.gov National [place] on Aging: www.jas.nih.gov Contact a doctor if: You are afraid of falling at home. You feel weak, drowsy, or dizzy at home. You fall at home. Summary There are many simple things that you can do to make your home safe and to help prevent falls. Ways to make your home safe include removing things that can make you trip and installing grab bars in the bathroom. Ask for help when making these changes in your home. This information is not intended to replace advice given to you by your health care provider. Make sure you discuss any questions you have with your health care provider. Document Revised: 11/26/2020 Document Reviewed: 11/26/2020 [employer] Patient Education ? 2021 [employer] Fall Prevention in Hospitals, Adult Being a patient in the hospital puts you at risk for falling. Falls can cause serious injury and harm, but they can be prevented. It is important to understand what puts you at risk for falling and what you and your health care team can do to prevent you from falling. If you or a loved one falls at the hospital, it is important to tell hospital staff about it. What increases the risk for falls Certain conditions and treatments may increase your risk of falling in the hospital. These include: Being in an unfamiliar environment, especially when using the bathroom at night. Having surgery. Being on bed rest. Taking many medicines or certain types of medicines, such as sleeping pills. Having tubes in place, such as IV lines or catheters. Other risk factors for falls in a hospital include: Having difficulty with hearing or vision. Having a change in thinking or behavior, such as confusion. Having depression. Having trouble with balance. Being a male. Feeling dizzy. Needing to use the toilet frequently. Having fallen during the past three months. Having low blood pressure. What are some strategies for preventing falls If you or a loved one has to stay in the hospital: Ask about which fall prevention strategies will be in place. Do not hesitate to speak up if you notice that the fall prevention plan has changed. Ask for help moving around, especially after surgery or when feeling unwell. If you have been asked to call for help when getting up, do not get up by yourself. Asking for help with getting up is for your safety, and the staff is there to help you. Wear nonskid footwear. Get up slowly, and sit at the side of the bed for a few minutes before standing up. Keep items you need, such as the nurse call button or a phone, close to you so that you do not need to reach for them. Wear eyeglasses or hearing aids if you have them. Have someone stay in the hospital with you or your loved one. Ask if sleeping pills or other medicines that can cause confusion are necessary. What does the hospital staff do to help prevent falls Hospitals have systems in place to prevent falls and accidents, which may involve: Discussing your fall risks and making a personalized fall prevention plan. Checking in regularly to see if you need help. Placing an arm band on your wrist or a sign near your room to alert other staff of your needs. Using an alarm on your hospital bed. This is an alarm that goes off if you get out of bed and forget to call for help. Keeping the bed in a low and locked position. Keeping the area around the bed and bathroom well-lit and free from clutter. Keeping your room quiet, so that you can sleep and be well-rested. Using safety equipment, such as: A belt around your waist. Walkers, crutches, and other devices for support. Safety beds, such as low beds or cushions on the floor next to the bed. Having a staff person stay with you (one-on-one observation), even when you are using the bathroom. This is for your safety. Using video monitoring. This allows a staff member to come to help you if you need help. What other actions can I take to lower my risk of falls Check in regularly with your health care provider or pharmacist to review all of the medicines that you take. Make sure that you have a regular exercise program to stay fit. This will help you maintain your balance. Talk with a physical therapist or associate trainer if recommended by your health care provider. They can help you to improve your strength, balance, and endurance. If you are over age 65: Ask your health care provider if you need a calcium or vitamin D supplement. Have your eyes and hearing checked every year. Have your feet checked every year. Where to find more information You can find more information about fall prevention from the Centers for Disease Control and Prevention: www.cdc.gov/steadi Summary Being in an unfamiliar environment, such as the hospital, increases your risk for falling. If you have been asked to call for help when getting up, do not get up by yourself. Asking for help with getting up is for your safety, and the staff is there to help you. Ask about which fall prevention strategies will be in place. Do not hesitate to speak up if you notice that the fall prevention plan has changed. If you or a loved one falls, tell the hospital staff. This is important. This information is not intended to replace advice given to you by your health care provider. Make sure you discuss any questions you have with your health care provider. Document Revised: 04/07/2018 Document Reviewed: 12/07/2017 [employer] Patient Education ? 2020 [employer] Hand Washing Germs such as bacteria, viruses, and parasites are everywhere. Many of these germs can make you and your family sick. Wash your hands often so you do not get or share germs. How to wash your hands the right way When should I wash my hands Wash your hands when they are dirty. Wash your hands before: You visit a baby or someone with a weak disease-fighting system (immunesystem). You put in or take out contact lenses. Wash your hands after: You use the bathroom or help someone use the bathroom. You sneeze, cough, or blow your nose. You work or play outside. You touch any of these things: Garbage or garbage bags. Something dirty in your home. Money or someone else's hands. Dirty clothes, bedding, or rags. You use any of these things: A mobile phone or other phone. Credit Collector or chemicals. You touch or take care of animals. This includes touching their food, poop (stool), toys, or leashes. You do these things away from home: Take a bus, train, taxi, or ride-share. Go shopping, especially with a shopping cart or basket. Wash your hands before and after: You touch your eyes, nose, or mouth. You touch food. This includes when: You prepare or eat food. You prepare a bottle for a baby or young child. You feed a baby or young child. You visit or take care of someone who is sick. This includes touching used tissues, toys, clothes, and bedding. You change a bandage or diaper. You take care of an injury or wound. You give or take medicine. What is the right way to wash my hands 1. Wet your hands with clean, running [...] a public restroom, use your towel to: Turn off the water faucet. Open the bathroom door. How can I clean my hands if I do not have soap and water If you cannot use soap and clean water, use a hand-washing wipe, spray, or gel (hand criminal lawyer). Use one that has at least 60% alcohol in it. Avoid using wipes, sprays, or gels in place of soap and water before you touch food. To use wipes, sprays, or gels, follow the directions on the product bottle, tube, or wrapper. Be sure to: Use enough product to cover your hands. Wipe, rub, or spray the product on all parts of your hands and wrists. Include the backs of your hands, between your fingers, and under your nails. Rub your hands until they feel dry. Summary Germs such as bacteria, viruses, and parasites are everywhere. Many germs can make you and your family sick. You should wash your hands often so you do not get or share germs. This information is not intended to replace advice given to you by your health care provider. Make sure you discuss any questions you have with your health care provider. Document Revised: 09/01/2020 Document Reviewed: 09/01/2020 [employer] Patient Education ? 2021 [employer]. [facility] [id number] [place], [place] [id number] Admission Orientation Welcome to the [facility]. Together we will work to keep you well and teach you how to care for yourself. We will explain what to expect before, during and after your treatments and procedures. You are a very important part of [...] to your bed. You must first dial '9' and then the number you wish to call. Our area code is 480. If you need to make a long distance call, you must dial 0 for the hospital letter sorting machine operator to help you. [employer] TELEVISION / SERVICE REQUESTS We are pleased to provide you with [employer] interactive televisions. [employer] offers [employer]cat movies, relaxation videos, educational programming, digital television and radio, and much more. You will find all the controls for the system located on your pillow speaker. [employer] can also be used to request services during your stay. You may change the temperature in your room, request housekeeping, report a mechanical problem, request the visit of a financial compliance examiner, or provide us with your valuable feedback [...] of age. Please follow your nurse and physician's instructions to reduce your risk of falling while you are in the hospital: VISITING HOURS We understand you want to visit your loved ones when it is convenient for you. Therefore, the hospital is open to visitors 24 hours a day, 7 days a week. During cold and flu season, we do restrict visitors as needed. VISITATION You have the right to determine the individuals that will visit you during your hospitalization. You also may withdraw your consent for visitors at any time. Visitation will not be restricted or limited on the basis of race, color, national origin, taoist, sex, gender identity, sexual orientation, or disability. You may designate a support person who will determine who may visit when you are unable or choose not to make that determination. This person may be different from your legal or healthcare power of compliance attorney. Visitation will be restricted if it interferes with your care, the care of other patients, or for infection control reasons. NUTRITION/MEALS Your safety, health and nutrition are very important to us. Our cafeteria has a wide selection of foods for your family and visitors. We encourage you to use our in-room meal services and not eat in the cafeteria. Our motel food service supervisor team is happy to work with you on your food choices and requests. Your doctor may want you to eat a specific diet and record what you eat and drink. Your nurse may be able to give you a Cafeteria Pass if you have no restrictions. For your safety, our cafeteria staff is not allowed to serve patients without a Cafeteria Pass signed by the nurse. RAISING CONCERNS/COMPLAINTS REGARDING YOUR CARE OR SAFETY You and your family are encouraged to raise concerns or complaints if you have them. Exercising your right to do this will not affect your healthcare services in any way. If at anytime you have concerns about patient care or safety, please speak to the air hose coupler or Network Management Specialist. If they are unable to resolve your concern/complaint, you can call the Customer Communication line at [phone] or go to the contact section of our website at [employer]. If your concerns are not satisfactorily resolved through the hospital, you may contact the Joint Commission or the Department of Health Services: The Joint Commission: Mc or email [email or web address].or judy [facility]: [address] [place] [address] Website: [email or web address]://[email or web address].gov/ls/onl ine_complaint/MEDComplaint.a spx FAMILY RAPID RESPONSE is a lifeline to immediate help when a patient or loved one feels the patient's condition has worsened and the caregiver needs to provide additional, immediate medical attention. Dial [phone] from any hospital phone. PAIN MANAGEMENT Be familiar with the pain scale. A pain scale is a number scale to measure your pain. A rating of 0 means you feel no pain at all, 5 means you feel a moderate amount of pain, and 10 means you feel the worst pain you can imagine. Your nurse or physician will teach you to describe the type and amount of pain you are having. 0 1 2 3 4 5 6 7 8 9 10 No Moderate Worst Pain Pain Pain Talk to your doctor or nurse if you: are in pain have questions about controlling your pain have taken pain medicine and it is not working At [facility], we will work with you and your family to manage your pain. We believe that managing your pain is an important part of your care. PREVENTING INFECTION Five things you can do to prevent infection (such as colds, flu and strep throat). A 'Speak Up' safety initiative by Joint Commission on Accreditation of Healthcare Organizations 1. Clean your hands. Use soap and warm water. Wet hands and apply soap. Rub your hands really well for at least 15 seconds. Rinse and dry. Use paper towel to turn water off. Or, if your hands do not look dirty, clean them with alcohol-based hand sanitizers. Rub the criminal lawyer all over your hands, especially under your nails and between your fingers, until your hands are dry. Children should be supervised when using this product. Clean your hands before touching or eating [...] providers clean their hands and wear gloves. Doctors, nurses, dentists and other health care providers come into contact with lots of bacteria and viruses. So before they treat you, ask them if they've cleaned their hands. Health care providers should wear clean gloves when they perform tasks such as taking throat cultures, pulling teeth, taking blood, touching wounds or body fluids, and examining your private parts. Don't be afraid to gently remind them to wear gloves. 3. In the hospital, health care workers use b arriers like gloves to protect the patients and themselves. While in the hospital a patient may have a specific germ that can be spread to others. These germs can be viruses or bacteria that cause illness. Some diseases and/or conditions require the use of additional barriers, like gowns and/or masks and Isolation Precautions. Comply with additional isolation precautions. Signs are posted on/at patient doors when additional precautions are needed. All patients, visitors and staff are asked to follow the instructions posted on/at the patient door. Please ask your nurse if you have additional questions. Patients and families in isolation should not use the common kitchen area, but should ask health care workers for items that they need. 4. Cover your mouth and nose. Many diseases are spread through sneezes and coughs. When you sneeze or cough, the germs can travel 3 feet or more! Cover your mouth and nose to prevent the spread of infection to others. Use a tissue! Keep tissues handy at home, at work and in your pocket. Be sure to throw away used tissues and then clean your hands. If you don't have a tissue, cover your mouth and nose with the bend of your elbow or hands. If you use your hands, wash/clean them right away. 5. If you are sick, avoid close contact. If you are sick, stay away from other people. Stay home if you have a fever. Call work or school and tell them you are sick. When you go for medical treatment, call ahead and ask if there's anything you can do to avoid infecting people in the waiting room. These steps can help prevent the spread of colds, the flu, and diseases like pneumonia, and strep throat. Remember to stay current on your immunizations. PREVENTING BLOOD CLOTS AND VENOUS THOMBOEMBOLISM (VTE) What is thromboembolism Blood flow is slower when the body is not active. This can cause clots to form in the blood. A blood clot in a blood vessel is called a thrombus. If the clot breaks loose and plugs another vessel, it is called thromboembolism. The blood clot can cause permanent injury to your body if it is not treated. Deep vein thrombosis (DVT) is a blood clot in one of the deep veins of the body, such as the leg or pelvis. This kind of clot can occur after surgery or long periods of bed rest. What are the signs and symptoms of deep vein thrombosis Pain felt deep in the leg Swelling and discoloration of the skin Sudden onset of pain Fever Pulmonary embolism (PE) is a serious [...] are the signs and symptoms of pulmonary embolism Chest pain: May get worse with deep breathing, coughing, eating, and bending. Cough: Begins suddenly, may cough up blood or blood-streaked sputum Rapid breathing Rapid heart rate Shortness of breath, may occur at rest or during activity, starts suddenly Why is prevention important Preventing clots is easier than treating them after they have happened. A blood clot can break off from the deep vein and travel to the lungs or other important organs. A blood clot can block blood flow to the tissues and ulcers or sores can result. How are deep vein thrombosis (DVT) and pulmonary embolus (PE) prevented Wear compression stockings ([place]HO hose) if your doctor recommends them. These keep blood from pooling in your veins. Wear a sleeve-like device on your legs (SCDs) after surgery to squeeze your legs and keep blood flowing through your veins. The squeezing motion is similar to how your muscles squeeze your veins during normal walking. Elevate the foot of your bed. Get up and move as soon as you can after surgery, or after you've been ill. The quicker you get moving, the less likely blood clots will develop. Take pain medicine as prescribed to make it easier to move around. If you're having surgery, such as orthopedic surgery, you may be given blood thinners or anticoagulant (anti-clotting) medicines. These medicines make the blood less able to clot and are sometimes called b lood thinners'. They can block the formation of new clots and stop existing clots from getting bigger. Exercise your muscles if you'll be sitting a long time. Whenever possible, get up and walk around. If you can't get up to walk around, try to exercise the feet by flexing, extending and rotating the foot. Make lifestyle changes. Lose weight, quit smoking and control your blood pressure. Obesity, smoking and high blood pressure all increase your risk of deep vein thrombosis. Limit the amount of salt you eat. Eat a high protein, low fat diet. Do not wear constrictive clothing or stockings Call your doctor if you have: Pain in the leg Tenderness in the calf (this is one of the most important signs) Swelling of the leg Increased warmth of the leg Redness in the leg Bluish skin discoloration Discomfort when the foot is pulled upward Chest pain and/or cough Rapid breathing Rapid heart rate Shortness of breath FROM THE RN MEDICATION Spiritual Care Services providing emotional and spiritual support At [facility], we are committed to providing comprehensive care by embracing the whole person in body, mind and spirit. Board certified chaplains are available Tuesday - Tuesday 8 a.m.- 10:30 p.m. and Weekends 8 a.m. 4:30 p.m. to all patients and their families to offer support across a wide array of diverse shivani traditions. Call Spiritual Care Services To help you cope with feelings associated with diagnosis and treatment If you find yourself asking w hy questions For Sacramental needs, ritual and prayer For grief and bereavement counseling If you have discovered new possibilities in your life During time of /loss When you are struggling with forgiveness To coordinate and collaborate with your shivani leader To assist in decision making To assist with advanced health care planning To contact a financial compliance examiner, ask your nurse to call Spiritual Care Services Department: [employer] Gl[employer]ier: [phone] Hand Buffer: [phone] We're here to support your shivani, beliefs and values. STROKE/TIA(TRANSISCHEMIC ATTACK) INFORMATION If you have been diagnosed with a Stroke or TIA: 1. Call 911 immediately if you experience signs or symptoms of stroke as: Sudden weakness or numbness of face, arms and leg usually on one side of the body. Loss of vision, particularly in only one eye. Sudden severe headache with no known cause. Sudden trouble walking, dizziness, loss of balance or coordination, slurred speech. 2. Risk factors for stroke: Age: The older you get the more likely you are to have a stroke. Sex: and [place] men have a higher risk. Prior Stroke: Already having a stroke makes you more likely to have another. Family history: Family (parent, grandparents, brother, sister) with a history of stroke increases your risk. You can control, treat or prevent some conditions to reduce your likelihood of stroke. High blood pressure, cigarette smoking, high cholesterol, Lack of regular physical activity, overweight, diabetes are all risk factors that can be changed. Cigarette Smoking Do you or someone you live with smoke If so, this is one of your greatest health risk! This is a risk that you can control. The facts are clear that cigarette smoking will shorten your life. Smoking can cause many illnesses along the way. If you or someone you live with need help to quit smoking, talk to your regular doctor. Please contact one or more of the following agencies for smoking-cessation information or classes: [facility] Tobacco Use Prevention Program- Telephone number: [phone] [place] Smokers' Helpline:905.726.7996 or access via website: WWW.Ideaxis.Sparkbrowser [employer] Telephone number: (785)-140-9356 [employer] Valuables and Belongings Clothes at Bedside: None Clothes Sent Home: None Electronics at Bedside: None Electronics Sent Home: None Jewelry at Bedside: Ring(s) Jewelry Sent Home: Ring(s) Miscellaneous Items at Bedside: Other: keys Miscellaneous Items Sent Home: Other: keys Personal Devices at Bedside: None Personal Devices Sent Home: None Additional Information: all pt valuable with son I understand that [facility] is not responsible for any personal belongings/effects or valuables that have not been identified on the valuables and belongings list. Any personal effects brought into the facility and not recorded on the valuables and belongings form are the responsibility of the patient/family/significant other. I have received the indicated patient education materials/instructions and have verbalized understanding. 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: Relationship to Patient: ____ Witness Signature: Date/Time: 10/12/2021 [facility] Final Transition Plan Final Transition P juan Entered On: 10/12/2021 15:19 MST Performed On: 10/12/2021 15:18 MST by Carmenza Gordon RN Transition Plan Expected Discharge Date (CM) : 10/12/2021 MST Transition To : Rehabilitation unit Home Caregiver Name/Relationship: : Keena Montano (son) [phone] Transition Plan - Professional Skilled Services : Nursing, Occupational Therapy, Physical Therapy DC Planning Transport : Yes Carmenza Gordon RN - 10/12/2021 15:18 MST Additional Transition Details Discharge Arrangements : Patient Post-Acute Information Patient Name: SAQIB MCKEON (EV) Gender: F : [birth year] Age: 71 Years Gwen Referral(s): Service: Organization: Business Address: Phone Number: [facility] [address] [facility] [place], [place], [phone] Additional Discharge Details : D[facility]V Acute rehab Discharge Plan Discussed with Patient : Yes DC Plan Discussed with Patient Rep : Yes Carmenza Gordon RN - 10/12/2021 15:18 MST 10/12/2021 [facility] Patient Summary Inpt [facility] [address] [place] [address] Patient Discharge Instructions - Discharge to External Facility Name: SAQIB MCKEON Current Date: 10/12/2021 14:11:20 : 1950 (EV) Patient Address: [address] [address] Patient Primary Care Provider Name: PCP, No Phone: Discharge Diagnosis: 1:Metabolic encephalopathy; 2:Concussion; 3:Chronic subdural hematoma; 4:Protein calorie malnutrition; 5:Gait instability; 6:Recurrent falls [facility] would like to thank you for allowing us to assist with your healthcare needs. The following includes follow-up information and discharge to external facility order information. Follow-up Instructions: With: Address: When: Nohemi Milton [address] [facility] [address] [place] [address] Within 1 to 3 days Comment: External Discharge Orders: Discharge Activity Electronically Signed by:Emmanuel Booth DO As tolerated External Facility Discharge Diet Electronically Signed by:Emmanuel Booth DO Diet Type Dysphagia Diet Level 4 Pureed Discharge Therapies Electronically Signed by:Emmanuel Booth DO Physical Therapy Eval and Treat OT to eval and treat Discharge Code Status Full Code Electronically Signed by:Emmanuel Booth DO Discharge TB Status Electronically Signed by:Emmanuel Booth DO The patient is free from signs of active pulmonary TB Medication Information Provided Separately 10/12/2021 [facility] [address] [place], [place] [id number] Transfer of Care Summary Please take with you to your follow-up appointment with your regular physician. Person Information Name:SAQIB MCKEON :1950 71 Years SEX:F (EV) Address and Phone:[address] [address] Language:Kosovan Race:White Ethnicity:Non- Visit Information Date of Discharge: LOS:003 19:07 Reason for Visit: Diagnosis:1:Metabolic encephalopathy; 2:Concussion; 3:Chronic subdural hematoma; 4:Protein calorie malnutrition; 5:Gait instability; 6:Recurrent falls Comment: Providers Primary Care Provider:PCP, No Care Team Providers: Admitting Physician: Emmanuel Booth DO Attending Physician: Emmanuel Booth DO Consulting Physician: Jonathan Angeles MD; Petrona Kraft DO MEDICAL INFORMATION Height 147.32 cm Weight 34.331 kg BMI 15.82 kg/m2 Smoking Status Blood Pressure 106 mm Hg / 65 mm Hg Cognitive and Functional Status Admit to Med/Surg Allergies No Known Medication Allergies Wheat (Nausea) [place] (NAUSEA) The following Tests Were Performed During Your Visit: Laboratory or Other Results This Visit (last charted value for your 10/09/2021 visit) Color 10/09/2021 0:37 AM Color: Yellow Appearance 10/09/2021 0:37 AM Appearance: Clear Specific [place] 10/09/2021 0:37 AM Specific [place]: >=1.030 -- Normal range between ( 1.008 and 1.020 ) UA pH 10/09/2021 0:37 AM UpH: 5.0 -- Normal range between ( 5.0 and 8.0 ) UA Glucose 10/09/2021 0:37 AM UGlucose: Negative UA Bilirubin 10/09/2021 0:37 AM UBilirubin: 1+ UA Ketones 10/09/2021 0:37 AM UKetones: 1+ UA Blood 10/09/2021 0:37 AM UBlood: Trace-intact UA Protein 10/09/2021 0:37 AM UProtein: 1+ UA Nitrite 10/09/2021 0:37 AM UNitrite: Negative UA Leukocyte Esterase 10/09/2021 0:37 AM ULeukocyte Esterase: Negative UA RBC 10/09/2021 0:37 AM URBC: 0-4 per HPF UA Bacteria 10/09/2021 0:37 AM UBacteria: None per HPF UA Mucous 10/09/2021 0:37 AM UMucous: Rare per LPF Hyaline Casts 10/09/2021 0:37 AM Hyaline Casts: 3-10 per LPF Urine WBCs 10/09/2021 0:37 AM Urine WBCs: 5-10 per HPF UA Squam Epithelial 10/09/2021 0:37 AM UA Squam Epithelial: None per HPF Urine Culture if Indicated 10/09/2021 0:37 AM Urine Culture if Indicated: Not Indicated UA Ictotest 10/09/2021 0:37 AM UIctotest: Positive Micro - Misc 10/12/2021 10:35 AM Report: Report CT C Spine wo Con 10/09/2021 9:[address] C Spine wo Con: CT C Spine wo Con CT Head wo Con 10/09/2021 2:[address] Head wo Con: CT Head wo Con CT L Spine wo Con 10/09/2021 9:[address] L Spine wo Con: CT L Spine wo Con CT T Spine wo Con 10/09/2021 9:[address] T Spine wo Con: CT T Spine wo Con MR Brain wo+w Con 10/10/2021 5:03 PM MR Brain wo+w Contrast: MR Brain wo+w Contrast WBC 10/11/2021 2:21 AM WBC: 5.1 thousand/uL -- Normal range between ( 4.8 and 10.8 ) RBC 10/11/2021 2:21 AM RBC: 4.01 million/uL -- Normal range between ( 4.00 and 5.40 ) Hgb 10/11/2021 2:21 AM Hgb: 12.5 gm/dL -- Normal range between ( 11.5 and 16.0 ) Hct 10/11/2021 2:21 AM Hct: 36.8 % -- Normal range between ( 37.0 and 47.0 ) Platelets 10/11/2021 2:21 AM Plt: 183 thousand/uL -- Normal range between ( 130 and 400 ) MCV 10/11/2021 2:21 AM MCV: 91.6 fL -- Normal range between ( 80.0 and 100.0 ) MCH 10/11/2021 2:21 AM MCH: 31.0 pg -- Normal range between ( 27.0 and 34.0 ) MCHC 10/11/2021 2:21 AM MCHC: 33.9 gm/dL -- Normal range between ( 32.0 and 37.0 ) RDW 10/11/2021 2:21 AM RDW: 15.0 % -- Normal range between ( 11.5 and 16.0 ) ABS Neut 10/11/2021 2:21 AM ABS Neut: 3.0 thousand/uL -- Normal range between ( 1.7 and 8.6 ) ABS Lymph 10/11/2021 2:21 AM ABS Lymph: 1.7 thousand/uL -- Normal range between ( 0.5 and 5.9 ) ABS Porter 10/11/2021 2:21 AM ABS Porter: 0.3 thousand/uL -- Normal range between ( 0.0 and 1.6 ) ABS Eos 10/11/2021 2:21 AM ABS Eos: 0.1 thousand/uL -- Normal range between ( 0.0 and 1.0 ) ABS Baso 10/11/2021 2:21 AM ABS Baso: 0.0 thousand/uL -- Normal range between ( 0.0 and 0.3 ) Neuts 10/11/2021 2:21 AM Neuts: 57.9 % -- Normal range between ( 35.0 and 80.0 ) Lymphs 10/11/2021 2:21 AM Lymphs: 34.2 % -- Normal range between ( 10.0 and 55.0 ) Monos 10/11/2021 2:21 AM Monos.: 6.3 % -- Normal range between ( 0.0 and 15.0 ) Eos 10/11/2021 2:21 AM Eos.: 1.0 % -- Normal range between ( 0.0 and 9.0 ) Baso 10/11/2021 2:21 AM Baso.: 0.6 % -- Normal range between ( 0.0 and 3.0 ) CBC Scan 10/11/2021 2:21 AM CBC Scan: Auto Diff Sodium 10/11/2021 2:21 AM Sodium: 140 mmol/L -- Normal range between ( 136 and 145 ) Potassium 10/11/2021 2:21 AM Potassium: 3.6 mmol/L -- Normal range between ( 3.5 and 5.1 ) Chloride 10/11/2021 2:21 AM Chloride: 108 mmol/L -- Normal range between ( 98 and 107 ) CO2 10/11/2021 2:21 AM CO2: 27 mmol/L -- Normal range between ( 23 and 31 ) BUN 10/11/2021 2:21 AM BUN: 14 mg/dL -- Normal range between ( 10 and 20 ) Creatinine 10/11/2021 2:21 AM Creatinine: 0.59 mg/dL -- Normal range between ( 0.57 and 1.25 ) Calcium 10/11/2021 2:21 AM Calcium: 7.9 mg/dL -- Normal range between ( 8.4 and 10.2 ) Protein, Total 10/08/2021 9:07 PM Protein, Total: 6.6 gm/dL -- Normal range between ( 6.0 and 8.3 ) Albumin 10/08/2021 9:07 PM Albumin: 3.8 gm/dL -- Normal range between ( 3.5 and 5.0 ) Phosphorus 10/08/2021 9:07 PM Phosphorus: 4.4 mg/dL -- Normal range between ( 2.3 and 4.7 ) Magnesium 10/08/2021 9:07 PM M.1 mg/dL -- Normal range between ( 1.6 and 2.6 ) Bili Total 10/08/2021 9:07 PM Bili Total: 1.2 mg/dL -- Normal range between ( 0.2 and 1.2 ) ALT 10/08/2021 9:07 PM ALT: 38 Units/L -- Normal range between ( 6 and 55 ) Alkphos 10/08/2021 9:07 PM Alkphos: 118 Units/L -- Normal range between ( 40 and 150 ) A/G Ratio 10/08/2021 9:07 PM A/G Ratio: 1.4 -- Normal range between ( 0.8 and 1.6 ) Anion Gap 10/11/2021 2:21 AM Anion Gap: 9 -- Normal range between ( 10 and 20 ) Globulin 10/08/2021 9:07 PM Globulin: 2.8 gm/dL -- Normal range between ( 2.3 and 3.5 ) Lactic Acid 10/08/2021 9:07 PM Lactic Acid: 1.31 mmol/L -- Normal range between ( 0.50 and 2.00 ) Glucose 10/11/2021 2:21 AM Glucose Level: 81 mg/dL -- Normal range between ( 80 and 115 ) AST 10/08/2021 9:07 PM AST: 32 Units/L -- Normal range between ( 5 and 34 ) Lipase Level 10/08/2021 9:07 PM Lipase: 10.0 Units/L -- Normal range between ( 8.0 and 78.0 ) Lipase Level: Lipase Ammonia Level 10/08/2021 9:07 PM Ammonia Level: 19.00 mcmol/L -- Normal range between ( 18.00 and 72.00 ) Ammonia Level: Ammonia Level eGFR Non- Am 10/11/2021 2:21 AM eGFR Non- Am: >60 mL/min/1.73m2 eGFR Am 10/11/2021 2:21 AM eGFR Afr/Amer: >60 mL/min/1.73m2 CK 10/08/2021 9:07 PM CK: 309 Units/L -- Normal range between ( 40 and 140 ) CKMB% 10/08/2021 9:07 PM CKMB%: 4.2 Troponin I 10/08/2021 9:07 PM Troponin I: <0.01 ng/mL B-Natriuretic Peptide 10/08/2021 9:07 PM B-Natriuretic Peptide: 29.9 pg/mL BNP: BNP (B-Type Natriuretic Peptide) CKMB 10/08/2021 9:07 PM CK MB: 12.9 ng/mL -- Normal range between ( 0.0 and 3.4 ) Folate 10/09/2021 0:18 AM Folate: 4.6 ng/mL Vit B12 10/09/2021 0:18 AM Vit B12: 553 pg/mL -- Normal range between ( 213 and 816 ) TSH 10/08/2021 9:07 PM TSH: 2.012 mcIU/mL -- Normal range between ( 0.350 and 4.940 ) Influenza B, PCR 10/08/2021 8:25 PM Influenza B, PCR: Negative RSV, PCR 10/08/2021 8:25 PM RSV, PCR: Negative Influenza A, PCR 10/08/2021 8:25 PM Influenza A, PCR: Negative COVID19/SARS-CoV-2 PCR Result 10/08/2021 8:25 PM COVID19/SARS-CoV-2 PCR Result: Negative COVID/Flu/RSV Source 10/08/2021 8:25 PM COVID/Flu/RSV Source: [employer] Swab XR Chest 1 View AP or PA 10/08/2021 8:46 PM XR Chest 1 View AP or PA: XR Chest 1 View AP or PA XR Swallow Function Video or Cine 10/12/2021 8:28 AM XR Swallow Function Video or Cine: XR Swallow Function Video or Cine XR Hip w Pelvis 2 Views Bilat 10/08/2021 8:46 PM XR Hip w Pelvis 2 Views Bilat: XR Hip w Pelvis 2 Views Bilat U Amphetamine/Methamphetamine 10/09/2021 0:37 AM U Amphetamine/Methamphetamine: Negative U Barbiturate 10/09/2021 0:37 AM U Barbiturate: Negative U Benzodiazepine 10/09/2021 0:37 AM U Benzodiazepine: Negative U Cocaine 10/09/2021 0:37 AM U Cocaine: Negative U Methadone 10/09/2021 0:37 AM U Methadone: Negative U Opiates 10/09/2021 0:37 AM U Opiates: Negative U Oxycodone 10/09/2021 0:37 AM U Oxycodone: Negative U PCP 10/09/2021 0:37 AM U PCP: Negative U THC 10/09/2021 0:37 AM U THC: Negative U Fentanyl 10/09/2021 0:37 AM U Fentanyl: Negative PT 10/08/2021 9:07 PM PT: 10.8 sec -- Normal range between ( 10.0 and 12.3 ) INR 10/08/2021 9:07 PM INR: 0.95 PTT 10/08/2021 9:07 PM PTT: 27.5 sec -- Normal range between ( 25.5 and 36.0 ) Medication List: No Known Home Medications Additional Information: Problems Active Chronic subdural hematoma Procedures No Procedures Documented Immunizations No Immunizations Documented This Visit Additional Patient Instructions: No qualifying data available Patient Education Information: Instructions Assigned: Wound Care, Adult; Fall Prevention in the Home, Adult, [id number]; Fall Prevention in Hospitals, Adult; Hand Washing, [id number]; EV [facility] (Eng) Admission Orientation (Custom) Advance Directive: Patient has an Advance Directive: No Patient Wishes to Complete an Advance Directive: Yes Follow up: With: Address: When: Nohemi Milton DO [address] [facility] [address] [place] [address] Within 1 to 3 days No Prescheduled Appointments Found Physician Documentation/Notes: 10/12/2021 [facility] Wound Care Note Wound care consulted for this 71 yo female admitted for AMS and failure to thrive with an unknown PMH. Met with patient for assessment. Bedside RN present to assist with patient repositioning as patient is confused. The sacrum is noted with a 3x3cm unstageable pressure injury, POA. Unable to determine the depth of the wound as the wound bed is 50% adherent moise slough and 50% black/purple tissue. No drainage. Sacrum is very prominent. No redness nor breakdown on buttocks or coccyx. Cleansed and applied triad cream and a silicone foam dressing. Turned patient to the left side. Waffle in place. Wound care and pressure prevention measures ordered. Electronically Signed By: Shante Denise RN On 10/10/21 08:13 Co Signature By: Emmanuel Booth DO On 10/10/21 08:16 Modify Signature By: 10/10/2021 [facility] Patient Placement Infection Control/Sa fety Education Topics Entered On: 10/10/2021 1:41 MST Performed On: 10/10/2021 1:41 MST by Abhi Wall Infection Control Education Infection Control/Safety Education Topics : Hand hygiene, Respiratory hygiene, How to report safety concerns, Fall prevention, Oral Care Abhi Wall - 10/10/2021 1:41 MST 10/10/2021 [facility] Consultation Patient: MUNIRA MCKEON Age: 71 years Sex: F : 1950 Active Insurance: MEDICARE [id number] Admitting MD: Eunice Rubin MD [place] [facility] [place]: 01 PCP: NI, No Author: Dena Rey PA-C Called by ED re this 71 y/o female who was found down during a welfare check Family last spoke with patient 3-4 days prior to admission She was found altered, covering in feces We were called re small R chronic SDH found on CTH Case discussed with Dr Almazan Small chronic SDH does not explain patient AMS and is unlikely to be causing any symptoms at all SDH does not require any intervention and patient does not require transfer to [facility] Repeat CTH this am is stable Recommendation: SBP 100-150 No ASA, NSAID's, Fish oil or blood thinning medications x 2 weeks Okay to start SQ heparin tomorrow if felt necessary for DVT prophy Due to fall risk recommend avoiding any AC or antiplatelet medications indefinitely Recommend repeat CTH w/o contrast in 4 weeks NSGY will sign off, call with questions or concerns Electronically Signed By: Dena Rey PA-C On 10/09/21 17:04 Co Signature By: Modify Signature By: Case discussed with Dena Rey PA-C on 10/09/2021 1230AM - History and imaging reviewed as above - CTH shows a small, chronic, right SDH without mass effect - SDH is not the cause of presentation - SDH does not require intervention RECOMMENDATIONS as ABOVE: - SBP 100-150 - No ASA, NSAID's, Fish oil or blood thinning medications x 2 weeks from 10/09/2021 - Due to fall risk, recommend avoiding any full AC or antiplatelet medications indefinitely - Recommend repeat CTH w/o contrast in 4 weeks (~11/08/2021) Electronically Signed By: Fernandez Almazan MD On 10/11/21 15:49 Co Signature By: Modify Signature By: Fernandez Almazan MD On 10/11/21 15:49 10/09/2021 [facility] Consultation Patient: MUNIRA MCKEON Age: 71 years Sex: F : 1950 Active Insurance: MEDICARE [id number] Admitting MD: Eunice Rubin MD [place]: [facility] [place] 121: 01 PCP: PCP, No Author: Jonathan Angeles MD Referring Physician DR Rubin Reason for Consultation Change in mental status, and fall Chief Complaint AMS, multiple wounds/abrasions History of Present Illness History obtained from the patient's son bedside, medical records, admission notes. The patient is a 71-year-old lady, she did not have any medical care for at least 20 to 30 years, she lives by herself, her both sons check on her regularly through [employer], she usually gets the food from a [employer] delivery. She is not on any medication. For around 5 days is sounds were not able to reach her, and eventually her son called the police to check on her and the patient was found on the ground, confused, and there was feces. The circumstances leading her to be on the ground is unknown, the patient was not able to provide information. She was brought to the emergency room and then admitted to [facility]. Talking to her son he told me that for many years she has some difficulty with gait however it was minor issues without any difficulty leading up till around July he started to notice that her steps are very short, she has difficulty when she is sitting backward to the chair as he was looking at her from FaceTime, also he noted that when she is answering the questions sometimes she answer appropriately and sometimes it is completely irrelevant subject. Per giving the minor changes over the years he did not pay much of attention. When talking to her today he told me that she is almost about at baseline for the last week to 10 days, however this definitely changes from 3 or 4 years ago. The patient is extremely cachectic, she is not able to provide me any history, she recognize that she is in a place where they take care of patients, and she told me that her son told her not to worry about expenses. She denied any headache, she denied any focal weakness or numbness although the patient is diffusely weak and cachectic. As far as her son aware she does not have any stroke, never had a seizure, never been to the hospital before. Review of Systems 12 point review of system is negative except what mentioned in the history Objective Vitals and Measurements T: 36.2 ?C (Axillary) TMIN: 35.7 ?C (Tympanic) TMAX: 36.3 ?C (Axillary) HR: 78 RR: 16 BP: 112/69 SpO2: 98% Oxygen Method: Room air WT: 75.7 lbs WT: 34.331 kg No carotid bruit, S1 and S2 was present. Ophthalmoscope examination was very limited due to the patient cooperation Physical Exam Alert, oriented to the name [facility], but not able to tell me that she is in the hospital, not oriented to the time or the year, she cooperated with the exam, able to name some objects but not all the objects, not able to repeat a sentence. Speaks with 1 and 2 word sentence. Pupils equal and reactive, visual field grossly intact, extraocular movement is normal, no nystagmus, no gaze palsy, no diplopia, face symmetric, tongue midline, palate vision normal, decrease in hearing, shrug shoulders normal. Not able to evaluate the sensation Motor examination with severe cachexia and decrease in muscle mass diffusely, diffuse weakness in the range of 3/5, normal tone, no tremor. Sensory examination was very difficult to evaluate due to the patient cooperation. Able to perform [id number], but not able to perform [id number] Reflexes 0/4 No nuchal rigidity Lab Results Noted since admission Antibiotics Ordered cefTRIAXone: 1,000 mg, IV Push, q24hr 10/09/21 16:17 - Active ( 1 days ) Completed cefTRIAXone: 1,000 mg, IV Push, x1 10/08/21 23:57 - Active ( 1 days ) Diagnostic Results CT scan of the head, cervical, thoracic, lumbar spine noted Assessment/Plan 71-year-old lady who was found on the ground of unknown circumstances, she has a diffuse cachexia, weakness, many years of decrease in gait stability, and decrease in memory more prominent in the last 2 to 3 months. No evidence of infection Most likely this is representation of metabolic encephalopathy superimposed on a dementia. Possible the subdural hematoma playing a role. And for unknown short of time. Patient definitely has poor nutrition and failure to thrive. CT scan of the cervical, thoracic and lumbar spine did not show any acute fractures. Await MRI of the brain. Nutrition consultation General blood work-up so far not significant Physical therapy Cognitive evaluation Speech pathology Follow-up as an outpatient with [facility] 1. Metabolic encephalopathy G93.41 2. Concussion S06.0X9A 3. Chronic subdural hematoma I62.03 4. Protein calorie malnutrition E46 5. Gait instability R26.81 6. Recurrent falls R29.6 Orders: Brain MRI wo+w Contrast Problem List/Past Medical History Ongoing Chronic subdural hematoma Historical No qualifying data Medications Inpatient acetaminophen oral TABLET, 650 mg= 2 Tab, PO, q4hr, PRN cefTRIAXone, 1000 mg, IV Push, q24hr Dextrose 5% with 0.9% NaCl 1,000 mL, 1000 mL, IV docusate sodium, 100 mg= 1 Cap, PO, BID, PRN glucagon, 1 mg, IM, Per Parameter, PRN glucose oral tablet, chewable, 16 gm= 4 Tab, PO, q15min, PRN KCL 10 mEq/100 mL IVPB, 10 mEq= 100 mL, IV, Per Parameter, PRN ketorolac, 15 mg= 0.5 mL, IV Push, q6hr, PRN Lovenox, 40 mg= 0.4 mL, SUBCUT, qDay Maalox (al hydroxide-mg hydroxide), 30 mL, PO, q4hr, PRN magnesium oxide, 400 mg= 1 Tab, PO, Per Parameter, PRN magnesium sulfate 2gm/50 mL SW, 2 gm= 50 mL, IV, Per Parameter, PRN magnesium sulfate 4gm/100 mL SW, 4 gm= 100 mL, IV, Per Parameter, PRN melatonin, 6 mg= 2 Tab, PO, qHS, PRN ondansetron INJ, 4 mg= 2 mL, IV Push, q4hr, PRN potassium chloride (Klor-Con) ER Tab, 20 mEq= 1 Tab, PO, Per Parameter, PRN potassium chloride (Klor-Con) ER Tab, 40 mEq= 2 Tab, PO, Per Parameter, PRN Senokot, 8.6 mg= 1 Tab, PO, qHS, PRN Tylenol oral TABLET, 650 mg= 2 Tab, PO, q4hr, PRN Home No active home medications Allergies [place] Reaction: NAUSEA [place] Reaction: Nausea No Known Medication Allergies Reaction: None Documented Social History Alcohol Denies, 10/08/2021 Home/Environment Yazidi restrictions/concerns: None. Lives with Alone. Living situation: apartment. Alcohol abuse in household: No. Substance abuse in household: No. Smoker in household: No. Injuries/Abuse/Neglect in household: No. Feels unsafe at home: Yes. Safe place to go: No. Family/Friends available for support: Yes. Concern for family members at home: No. Major illness in household: No., 10/09/2021 Nutrition/Health Diet: Regular., 10/09/2021 Substance Abuse Denies, 10/08/2021 Tobacco Never (less than 100 in lifetime), 10/09/2021 Family History Noncontributory Electronically Signed By: Jonathan Angeles MD On 10/09/21 16:54 Co Signature By: Modify Signature By: 10/09/2021 [facility] Transition Planning Progress Note RNCC met and spoke with pt son at bedside RNCC role explained, demographic and insurance information verified PCP verified Dr. Wrad RR score 5 HEAD WAITRESS patient living independently by herself No DME HEAD WAITRESS No HH services HEAD WAITRESS DC goals/plans discussed plan is to go to [facility] per PT/OT recommendation. Pt son in agreement with the plan and no choice of facility at this time. Patient denies issues with monthly prescriptions refills RNCC will continue to follow the hospital course for potential dc needs. Senior Fund Accountant sent IRF referral [facility] CC team to follow. [facility] [phone] is able to accept and [facility] will transport between 4-5pm... RN aware Called and spoke with pt's son, Keena and he was made aware that [facility] had accepted and transport is arranged for between 4-5pm. Packet delivered to bedside Nabor DENT. 10/09/2021 [facility] Physical Therapy Initial Eval Patient: SAQIB MCKEON Age: 71 years Sex: F : 1950 Active Insurance: MEDICARE [id number] Admitting MD: Eunice Rubin MD [place] [facility] [place] 121: 01 PCP: PCPKalpana Author: Clement Dailey PT Rehab Potential and Diagnosis Assessment Precautions/Contraindication s: Moderate TBI Cognitive/Fatigue GCS-12 RLS-5 Rehabilitation Potential: Good Treatment Diagnosis for PT: fall Medical Necessity Justification (PT): Fall Chief Complaint AMS, multiple wounds/abrasions History of Present Illness History was limited due to patient with altered mental status. History was obtained with assistance of patient's son from out of town at bedside. 71-year-old female who apparently had not seen a doctor for 20 to 30 years without known medical history presented to ED when patient was found down and altered during welfare check earlier today. Son noted he usually face times with the patient every day and since 3 days ago, patient was not answering the FaceTime calls. Patient also did not answer his brothers calls either, hence the welfare check. Son noted patient had seemed to be somewhat more confused for the past week, though patient had been exhibiting some cognitive impairments for a few months now. Patient lives alone. Son reported recalling that patient had fallen about a year ago but was unclear whether it was known whether she had fallen since then. In the ED vitals were stable. Patient was noted with multiple abrasions and scabs on her arms and back. Per floor RN patient was also noted with dried blood on the side of her head. CBC was unremarkable CMP noted BUN 29 creatinine 0.74 ammonia level was normal lipase normal lactic acid normal BNP normal troponin negative TSH normal UDS was negative UA was negative for infection although specific gravity was elevated and there were hyaline casts noted viral respiratory panel was negative. Patient had chest x-ray and hip and pelvis x-rays that were unremarkable by independent review. CT head without contrast suggested likely chronic right-sided extra-axial subdural hematoma. Patient was given liter fluid bolus and dose of Rocephin. Neurosurgery was consulted in the ED who did not recommend surgical intervention as this appeared chronic nonacute. [1] Narratives Subjective Pt's ID confirmed with 2 pt identifiers of pt's full name and via pt's hospital ID josh. Pt was agreeable to PT evaluation. Objective PT evaluation was completed in RM 121 from [id number] with additional time for chart review, care coordination, and documentation. RN was informed of PT evaluation and was updated on pt's status post evaluation. Pt presented semi-reclined in bed and was left semi-reclined in bed with call light and tray table within reach, bed alarm on, fall mat present and 3/4 bed rails up. Assessment Pt tolerated PT evaluation fairly. Pt was unable to provide PLOF. Son was present in the room and reports he just came in from [place]. Pt lives alone in a ground level apt and was Ind HEAD WAITRESS. Pts son reports she has not driven in years and his brother has been assisting the pt go to the store and appointments. Pt required Min-Mod A for all bed mobility and Min -Mod A for sitting balance. Pt stood with Max A x 2 with [employer]. BP dropped from 94/61 seated to standing at 86/54. Pt ambulated along EOB with Max A for wt shifting and VCs on foot placement. Pt is very confused and has difficulty recalling recent events. Pt is not at PLOF and will benefit from PT services to facilitate return in function and maximize safety and independence with mobility. Pt would benefit from intensive therapy program from a mulit disciplinary team for 3 hours of therapy a day for several weeks to maximize functional outcome and address functional limitations. The pt is expected to actively participate in, and benefit significantly from an intensive rehab program. Pt/family agree with this plan. Historical Rehab Info Historic Info (rehab) Date/Onset of Injury/Limitation: 10/08/2021 00:00 Social History (rehab) Patient's Responsibilities: Driving, Hobbies, Housework, Meal preparation Lives In: Apartment Living Situation: Lives alone Home Access: Lives in alone in [facility]. Patient's son, who lives in [place], would Facetime her regularly to check on her. Son said she was independent and did not use DME. However, over past year, he noticed functional decline. Stated she had one fall about a year ago. Not aware of any other falls. Patient was not driving. Has another son who lives locally who would assist her with transportation as needed but not available regularly. Son also stated he noticed minimal cognitive decline but was still able to complete most daily tasks successfully. Son stated he is planning on taking patient back to [place] when she is medically appropriate. Preferred Language for Healthcare: Kosovan PLOF (rehab) Bed Mobility-PLOF: Independent General Transfers-PLOF: Independent Toilet Transfers-PLOF: Independent Tub/Shower Transfer-PLOF: Independent Ambulation at Home-PLOF: Independent Bathing-PLOF: Independent Dressing-PLOF: Independent Toileting-PLOF: Independent Grooming-PLOF: Independent Fwyj-Nycmczm-USTY: Independent Swallowing-PLOF: Independent Communication-PLOF: Independent Money Management-PLOF: Independent Household Maintenance-PLOF: Independent Assistive Devices Used: None Hearing-PLOF: Hard of Hearing Vision-PLOF: WDL Prior Cognitive Status: Impaired memory/learning, Impaired problem solving and reasoning Additional PLOF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 (E46) 10/09/2021 07:08 Discharge Gait instability (R26.81) 10/09/2021 07:09 Discharge Recurrent falls (R29.6) 10/09/2021 07:09 Discharge Consultants Neurology and neurosurgery Reason for Admission Metabolic encephalopathy (G93.41) 10/09/2021 06:59 Discharge Concussion (S06.0X9A) 10/09/2021 07:05 Discharge Chronic subdural hematoma (I62.03) 10/09/2021 07:05 Discharge Protein calorie malnutrition (E46) 10/09/2021 07:08 Discharge Gait instability (R26.81) 10/09/2021 07:09 Discharge Recurrent falls (R29.6) 10/09/2021 07:09 Discharge Hospital Course History of Present Illness History was limited due to patient with altered mental status. History was obtained with assistance of patient's son from out of town at bedside. 71-year-old female who apparently had not seen a doctor for 20 to 30 years without known medical history presented to ED when patient was found down and altered during welfare check earlier today. Son noted he usually face times with the patient every day and since 3 days ago, patient was not answering the FaceTime calls. Patient also did not answer his brothers calls either, hence the welfare check. Son noted patient had seemed to be somewhat more confused for the past week, though patient had been exhibiting some cognitive impairments for a few months now. Patient lives alone. Son reported recalling that patient had fallen about a year ago but was unclear whether it was known whether she had fallen since then. In the ED vitals were stable. Patient was noted with multiple abrasions and scabs on her arms and back. Per floor RN patient was also noted with dried blood on the side of her head. CBC was unremarkable CMP noted BUN 29 creatinine 0.74 ammonia level was normal lipase normal lactic acid normal BNP normal troponin negative TSH normal UDS was negative UA was negative for infection although specific gravity was elevated and there were hyaline casts noted viral respiratory panel was negative. Patient had chest x-ray and hip and pelvis x-rays that were unremarkable by independent review. CT head without contrast suggested likely chronic right-sided extra-axial subdural hematoma. Patient was given liter fluid bolus and dose of Rocephin. Neurosurgery was consulted in the ED who did not recommend surgical intervention as this appeared chronic nonacute. [1] Patient was seen for the above symptoms. She was brought in for concern of metabolic encephalopathy and concussion. Neurology and neurosurgery were both consulted during this admission. Initial imaging was concerning for a subdural hematoma. MRI did confirm this. There was nothing to do from a neurosurgical standpoint except hold anticoagulation for [address] head in approximately 4 weeks. Reason for her encephalopathy was likely multifactorial with underlying dementia and chronic malnutrition and simple failure to thrive. Patient was started on a diet but began to cough in the hospital stay. Speech therapy evaluated her and ended up doing a modified barium swallow study and put her on her liver for diet. PT/OT recommended acute rehab for further rehabilitation on discharge. Neurology could not find any evidence of acute ischemic stroke and there is only signs of this chronic subdural hematoma. She was cleared from the specialist standpoint. Long discussion was had with the family and they were in agreement with discharge to rehab. She will eventually live with her family out of state for further care. Labs, imaging, vitals were reviewed prior to discharge and patient was discharged in stable condition with instructions to follow up with PCP and specialist in the outpatient setting for continuity of care. Procedures and Treatment Provided - SBP 100-150 - No ASA, NSAID's, Fish oil or blood thinning medications x 2 weeks from 10/09/2021 - Due to fall risk, recommend avoiding any full AC or antiplatelet medications indefinitely - Recommend repeat CT Head w/o contrast in 4 weeks (~11/08/2021) Objective Vitals and Measurements T: 36.4 ?C (Axillary) TMIN: 36.4 ?C (Axillary) TMAX: 36.8 ?C (Oral) HR: 65 RR: 14 BP: 106/65 SpO2: 95% Oxygen Method: Room air Physical Exam GENERAL: Awake and alert, Cachectic, failure to thrive. Dementia HEENT: Normocephalic, atraumatic NECK: supple, no lymphadenopathy LUNGS: Clear to auscultation bilaterally, no crackles or wheezes CV: RRR, normal S1/S2. GI: soft, nontender, normoactive bowel sounds BACK: no spinal or paraspinal tenderness. EXT: no cyanosis, clubbing, distal pitting edema SKIN: Warm, dry, and intact NEURO: Cranial nerves 2-12 grossly intact Lab Results Common Labs - All Encounters, All Results, Last 18 months Last 18 Months Basic Metabolic Panel: Hematology: Sodium: 140 (10/11/21) Hgb: 12.5 (10/11/21) Potassium: 3.6 (10/11/21) HgbA1C: ------ Phosphorus: 4.4 (10/08/21) WBC: 5.1 (10/11/21) M.1 (10/08/21) Plt: 183 (10/11/21) BUN: 14 (10/11/21) INR: 0.95 (10/08/21) Serum Creat: 0.59 (10/11/21) Creatinine Clearance: ------ Additional - Last 18 Months A/G Ratio: 1.4 (10/08/21) ABS Baso: 0.0 (10/11/21) ABS Eos: 0.1 (10/11/21) ABS Lymph: 1.7 (10/11/21) ABS Porter: 0.3 (10/11/21) ABS Neut: 3.0 (10/11/21) Albumin: 3.8 (10/08/21) Alkphos: 118 (10/08/21) ALT: 38 (10/08/21) Ammonia Level: 19.00 (10/08/21) Ammonia Level: Ammonia Level (10/08/21) Anion Gap: 9 (10/11/21) Appearance: Clear (10/09/21) AST: 32 (10/08/21) B-Natriuretic Peptide: 29.9 (10/08/21) Baso.: 0.6 (10/11/21) Bili Total: 1.2 (10/08/21) Calcium: 7.9 (10/11/21) CBC Scan: Auto Diff (10/11/21) Chloride: 108 (10/11/21) CK: 309 (10/09/21) CK MB: 12.9 (10/09/21) CKMB%: 4.2 (10/09/21) CO2: 27 (10/11/21) Color: Yellow (10/09/21) COVID/Flu/RSV Source: [employer] Swab (10/08/21) COVID19/SARS-CoV-2 PCR Result: Negative (10/08/21) eGFR Afr/Amer: >60 (10/11/21) eGFR Non- Am: >60 (10/11/21) Eos.: 1.0 (10/11/21) Folate: 4.6 (10/09/21) Globulin: 2.8 (10/08/21) Glucose (POCT) Automated: 102 (10/12/21) Glucose Level: 81 (10/11/21) Hct: 36.8 (10/11/21) Hyaline Casts: 3-10 (10/09/21) Influenza A, PCR: Negative (10/08/21) Influenza B, PCR: Negative (10/08/21) Lactic Acid: 1.31 (10/08/21) Lipase: 10.0 (10/08/21) Lipase Level: Lipase (10/08/21) Lymphs: 34.2 (10/11/21) MCH: 31.0 (10/11/21) MCHC: 33.9 (10/11/21) MCV: 91.6 (10/11/21) Monos.: 6.3 (10/11/21) Neuts: 57.9 (10/11/21) Protein, Total: 6.6 (10/08/21) PT: 10.8 (10/08/21) PTT: Partial Thromboplastin Time (10/08/21) RBC: 4.01 (10/11/21) RDW: 15.0 (10/11/21) Report: Report (10/12/21) RSV, PCR: Negative (10/08/21) Specific [place]: >=1.030 (10/09/21) Troponin I: <0.01 (10/08/21) TSH: 2.012 (10/08/21) U Amphetamine/Methamphetamine: Negative (10/09/21) U Barbiturate: Negative (10/09/21) U Benzodiazepine: Negative (10/09/21) U Cocaine: Negative (10/09/21) U Fentanyl: Negative (10/09/21) U Methadone: Negative (10/09/21) U Opiates: Negative (10/09/21) U Oxycodone: Negative (10/09/21) U PCP: Negative (10/09/21) U THC: Negative (10/09/21) UA Squam Epithelial: None (10/09/21) UBacteria: None (10/09/21) UBilirubin: 1+ (10/09/21) UBlood: Trace-intact (10/09/21) UGlucose: Negative (10/09/21) UIctotest: Positive (10/09/21) UKetones: 1+ (10/09/21) ULeukocyte Esterase: Negative (10/09/21) UMucous: Rare (10/09/21) UNitrite: Negative (10/09/21) UpH: 5.0 (10/09/21) UProtein: 1+ (10/09/21) URBC: 0-4 (10/09/21) Urine Culture if Indicated: Not Indicated (10/09/21) Urine WBCs: 5-10 (10/09/21) Vit B12: 553 (10/09/21) Condition on Discharge stable Discharge Plan Discharge Medications Medications to Continue 1. TNF Medication(NO HOME MEDICATIONS) Discontinued Meds Discharge Disposition Discharge Order Details: 10/12/21 13:56:00 MST, Now, Rehabilitation Facility Discharge Activity Order Details: 10/12/21 13:56:00 MST, As tolerated Discharge Services per Case Management Order Details: 10/12/21 16:13:30 MST Discharge Services per Case Management Order Details: 10/12/21 18:33:45 MST Intent to Admit (ED only) Order Details: 10/08/21 23:30:00 MST, Medical Surgical with Telemetry, AMS Discharge Activity Discharge Activity Order Details: 10/12/21 13:56:00 MST, As tolerated Discharge Follow-up Instructions Follow-Up Details: Provider/Org Name: Nohemi Milton DO Within: 1 to 3 days Address: [address] [place] [id number]; ; It is critical that you follow-up with your physicians on an outpatient basis. Please take all of your medications and follow-up for any labs as indicated on this discharge note. Please return to your local emergency room if your symptoms worsen. Please contact your PCP if you have any questions or concerns. Thank you, it was a pleasure taking care of you. Time spent with Patient Time spent in charting, examination and consultation (answering questions for Patient and family/ discussing with consultants) greater 35 mins [1] Admission H and P; RazaVictoriano laura 10/09/2021 04:40 MST Electronically Signed By: Emmanuel Booth DO On 10/12/21 20:58 Co Signature By: Modify Signature By: Emmanuel Booth DO On 10/12/21 20:58 10/12/2021 [facility] History and Physicals Results Value Date Source History and Physical Patient: JOSE MCKEON S Age: 71 years Sex: F : 1950 Active Insurance: MEDICARE [id number] Admitting MD: Emmanuel Booth DO [place] [facility] [place]: 01 PCP: PCP, No Author: Emmanuel Booth DO Subjective Seen and examined at bedside, patient was coughing while eating today. Speech therapy evaluated her and she is strict n.p.o. at this time. Long discussion with the family at bedside, currently not complaining of any new symptoms today. Hemodynamics are stable Objective Vitals and Measurements T: 36.6 ?C (Oral) TMIN: 36.3 ?C (Oral) TMAX: 37.1 ?C (Oral) HR: 85 RR: 18 BP: 109/72 SpO2: 99% Oxygen Method: Room air Physical Exam GENERAL: Awake and alert, Cachectic, failure to thrive HEENT: Normocephalic, atraumatic NECK: supple, no lymphadenopathy LUNGS: Clear to auscultation bilaterally, no crackles or wheezes CV: RRR, normal S1/S2. GI: soft, nontender, normoactive bowel sounds BACK: no spinal or paraspinal tenderness. EXT: no cyanosis, clubbing, distal pitting edema SKIN: Warm, dry, and intact NEURO: Cranial nerves 2-12 grossly intact Lab Results Last 24 Hours Hematology-CBC 10/11/21 General Chemistry 10/11/21 POC Glucose 10/11/21 WBC: 5.1 Sodium: 140 Glucose (POCT) Automated:132 (H) RBC: 4.01 Potassium: 3.6 Hgb: 12.5 Chloride:108 (H) Hct:36.8 (L) CO2: 27 MCV: 91.6 Anion Gap:9 (L) MCH: 31.0 Glucose Level: 81 MCHC: 33.9 BUN: 14 RDW: 15.0 Creatinine: 0.59 Plt: 183 eGFR Non- Am: >60 Neuts: 57.9 eGFR Afr/Amer: >60 Lymphs: 34.2 Calcium:7.9 (L) Monos.: 6.3 Eos.: 1.0 Baso.: 0.6 ABS Neut: 3.0 ABS Lymph: 1.7 ABS Porter: 0.3 ABS Eos: 0.1 ABS Baso: 0.0 CBC Scan: Auto Diff Additional -- Microbiology Studies Recently Resulted [id number] Culture Blood Status: Prelim 10/09/2021 Blood Peripheral Culture Report: No growth at 2 days. [id number] Culture Blood Status: Prelim 10/09/2021 Blood Peripheral Culture Report: No growth at 2 days. -- Scheduled cefTRIAXone 1,000 mg Inj: 1,000 mg, IV Push, q24hr PRN acetaminophen 325 mg Tab: 650 mg, PO, q4hr, PRN: Temperature acetaminophen 325 mg Tab: 650 mg, PO, q4hr, PRN: Pain Mild (1-3) alumin/Mg hydr (200-200/5mL) 3 30 mL, PO, q4hr, PRN: Heartburn docusate sodium 100 mg Cap: 100 mg, PO, BID, PRN: Constipation 1st Choice glucagon 1 mg Inj: 1 mg, IM, Per Parameter, PRN: Hypoglycemia glucose 4gm Chew Tab: 16 gm, PO, q15min, PRN: Hypoglycemia ketorolac 30 mg/mL Inj, 1mL: 15 mg, IV Push, q6hr, PRN: Pain Moderate (4-6) magnesium oxide 400 mg Tab: 400 mg, PO, Per Parameter, PRN: Hypomagnesemia magnesium sulf /SW: 2 gm, 50 mL, 25 mL/hr, IV, Per Parameter, PRN: Hypomagnesemia magnesium sulf /SW: 4 gm, 100 mL, 25 mL/hr, IV, Per Parameter, PRN: Hypomagnesemia melatonin 3 mg Tab: 6 mg, PO, qHS, PRN: Sleep ondansetron 2 mg/mL Inj 2mL: 4 mg, IV Push, q4hr, PRN: Nausea / Vomiting 1st Choice potassium chloride 20 mEq ER T 20 mEq, PO, Per Parameter, PRN: Hypokalemia potassium chloride 20 mEq ER T 40 mEq, PO, Per Parameter, PRN: Hypokalemia potassium Cl / SW Premix: 10 mEq, 100 mL, 100 mL/hr, IV, Per Parameter, PRN: Hypokalemia senna 8.6 mg Tab: 8.6 mg, PO, qHS, PRN: Constipation 2nd Choice IV D5W with NS + KCL 20 mEq/L: 75 mL/hr, IV, Stop: 11/10/21 16:03:00 [facility] Antibiotics Ordered cefTRIAXone: 1,000 mg, IV Push, q24hr 10/09/21 16:17 - Active ( 3 days ) Completed cefTRIAXone: 1,000 mg, IV Push, x1 10/08/21 23:57 - Active ( 1 days ) Assessment/Plan 1. Metabolic encephalopathy G93.41 Suspect component of dehydration and possible concussion 2. Concussion S06.0X9A Possible 3. Chronic subdural hematoma I62.03 4. Protein calorie malnutrition E46 5. Gait instability R26.81 Inferred by history and exam 6. Recurrent falls R29.6 Inferred by history and exam Plan: -Monitor mental status, avoid sedating medications as much as possible, IV fluid hydration - monitor urine output. -Neurology consult - MRI shows subdural hematomas. Monitor and avoid anticoagulation per neurosurgery -PT/OT - Likely needs placement. -Dietary supplements -Fall precautions, PT eval -DC IV Rocephin as there is no UTI Time spent with Patient Time spent in charting, examination and consultation (answering questions for Patient and family/ discussing with consultants) greater 35 mins Electronically Signed By: Emmanuel Booth DO On 10/11/21 17:37 Co Signature By: Modify Signature By: 10/12/2021 [facility] History and Physical Patient: JOSE MCKEON ALBINA S Age: 71 years Sex: F : 1950 Active Insurance: MEDICARE [id number] Admitting MD: Emmanuel Booth DO [place] [facility] [place]: 01 PCP: PCP, No Author: Jonathan Angeles MD Subjective Son bedside He reported that she is much improved, more awake, more cooperative, able to eat very well. No new events alert, oriented to the hospital, Objective Vitals and Measurements T: 36.3 ?C (Oral) TMIN: 36.3 ?C (Oral) TMAX: 37.1 ?C (Oral) HR: 89 RR: 18 BP: 100/63 SpO2: 100% Oxygen Method: Room air Physical Exam Not oriented to the year or months, follow commands appropriately, Extraocular movement normal, visual phan full, face symmetric Diffuse cachexia, decrease in muscle mass, weakness in the range of 4-/5. Antibiotics Ordered cefTRIAXone: 1,000 mg, IV Push, q24hr 10/09/21 16:17 - Active ( 3 days ) Completed cefTRIAXone: 1,000 mg, IV Push, x1 10/08/21 23:57 - Active ( 1 days ) Diagnostic Results MRI of the brain showed bilateral trace subdural hematoma Assessment/Plan 71-year-old lady who has decreasing cognitive function per History, she was found on the ground with unknown circumstances leading her to fall. Patient has severe cachexia, severe muscle wasting. MRI of the brain showed bilateral subdural hematoma. Unknown age. Patient has a very good improvement since admission. Neurosurgery already evaluated MRI and CT scan no aspirin, no anticoagulation, and repeat CAT scan in 4 weeks. From neurologic standpoint continue nutrition, rehabitation, and following that to follow-up as outpatient with neurology for cognitive evaluation with neuropsych So far metabolic panel is not remarkable Discussed all of the above in details with her son 1. Metabolic encephalopathy G93.41 2. Concussion S06.0X9A 3. Chronic subdural hematoma I62.03 4. Protein calorie malnutrition E46 5. Gait instability R26.81 6. Recurrent falls R29.6 Orders: Consulting Physician Time spent with Patient 35 minutes Electronically Signed By: Jonathan Angeles MD On 10/11/21 10:53 Co Signature By: Modify Signature By: 10/11/2021 [facility] History and Physical Patient: IVONPOOJAJOSE ALBINA S Age: 71 years Sex: F : 1950 Active Insurance: MEDICARE [id number] Admitting MD: Emmanuel Booth DO Location: [facility] [place] 121: 01 PCP: PCP, No Author: Jonathan Angeles MD Subjective Son bedside, no new events, the patient is cooperating well and she is eating her breakfast. Continues to have intermittent orientation on and off per son. Objective Vitals and Measurements T: 36.4 ?C (Oral) TMIN: 36.4 ?C (Oral) TMAX: 36.8 ?C (Oral) HR: 100 RR: 18 BP: 116/73 SpO2: 98% Oxygen Method: Room air Physical Exam Alert, oriented to the place, not oriented to the year not the month, able to follow simple commands Patient has severe decrease in hearing which is impairing the communication Extraocular movement normal, visual field grossly intact, face symmetric. Diffuse weakness, differential reviewed with decrease in muscle mass Antibiotics Ordered cefTRIAXone: 1,000 mg, IV Push, q24hr 10/09/21 16:17 - Active ( 2 days ) Completed cefTRIAXone: 1,000 mg, IV Push, x1 10/08/21 23:57 - Active ( 1 days ) Diagnostic Results MRI of the brain showed left frontal right subdural hematoma. Subdural hematoma, right Assessment/Plan 71-year-old lady who has a longtime history of decreasing cognitive function progressive, difficulty with gait. MRI showed subdural hematoma, it is unknown origin and it is unknown if this is due to the last fall. Patient has definite decrease in nutrition, and severely cachectic. From the history there is a longtime history of decreasing cognitive function, unknown the hearing impairment extent and how much is playing a role in the patient decrease in cognition. Recommended at this time physical therapy, rehab, nutrition Follow-up as an outpatient with [facility] for neuropsych evaluation Monitor brain images with repeat CT scan while she is in the rehabilitation. Neurosurgery Discussed all of the above in details with son. 1. Metabolic encephalopathy G93.41 2. Concussion S06.0X9A 3. Chronic subdural hematoma I62.03 4. Protein calorie malnutrition E46 5. Gait instability R26.81 6. Recurrent falls R29.6 Orders: Consulting Physician Time spent with Patient 35 minutes Electronically Signed By: Jonathan Angeles MD On 10/10/21 18:27 Co Signature By: Modify Signature By: 10/11/2021 [facility] History and Physical Patient: JOSE MCKEON DDY S Age: 71 years Sex: F : 1950 Active Insurance: MEDICARE [id number] Admitting MD: Emmanuel Booth DO [place] [facility] [place] 121: 01 PCP: PCP, No Author: Emmanuel Booth DO Subjective better today per staff software engineer. was more confused yesterday. no events overnight, eating in the room. Patient kindly requests that we 'leave her alone'. Hemodynamics are stable. Objective Vitals and Measurements T: 36.8 ?C (Oral) TMIN: 36.3 ?C (Axillary) TMAX: 36.8 ?C (Oral) HR: 81 RR: 16 BP: 105/66 SpO2: 98% Oxygen Method: Room air Physical Exam GENERAL: Awake and alert, Cachectic, failure to thrive HEENT: Normocephalic, atraumatic NECK: supple, no lymphadenopathy LUNGS: Clear to auscultation bilaterally, no crackles or wheezes CV: RRR, normal S1/S2. GI: soft, nontender, normoactive bowel sounds BACK: no spinal or paraspinal tenderness. EXT: no cyanosis, clubbing, distal pitting edema SKIN: Warm, dry, and intact NEURO: Cranial nerves 2-12 grossly intact Lab Results Last 24 Hours Hematology-CBC 10/10/21 General Chemistry 10/10/21 POC Glucose 10/10/21 WBC: 5.2 Sodium: 140 Glucose (POCT) Automated:182 (H) RBC:3.82 (L) Potassium:3.4 (L) Hgb: 11.8 Chloride:109 (H) Hct:34.2 (L) CO2: 25 MCV: 89.6 Anion Gap:9 (L) MCH: 31.0 Glucose Level: 115 MCHC: 34.6 BUN: 19 RDW: 15.0 Creatinine:0.56 (L) Plt: 182 eGFR Non- Am: >60 Neuts: 63.2 eGFR Afr/Amer: >60 Lymphs: 29.7 Calcium:7.8 (L) Monos.: 6.1 Eos.: 0.5 Baso.: 0.5 ABS Neut: 3.3 ABS Lymph: 1.5 ABS Porter: 0.3 ABS Eos: 0.0 ABS Baso: 0.0 CBC Scan: Auto Diff Additional -- Microbiology Studies Recently Resulted [id number] Culture Blood Status: Prelim 10/09/2021 Blood Peripheral Culture Report: No growth at 1 day. [id number] Culture Blood Status: Prelim 10/09/2021 Blood Peripheral Culture Report: No growth at 1 day. -- Scheduled cefTRIAXone 1,000 mg Inj: 1,000 mg, IV Push, q24hr enoxaparin 40 mg/0.4 mL Inj: 40 mg, Subcut, qDay PRN acetaminophen 325 mg Tab: 650 mg, PO, q4hr, PRN: Temperature acetaminophen 325 mg Tab: 650 mg, PO, q4hr, PRN: Pain Mild (1-3) alumin/Mg hydr (200-200/5mL) 3 30 mL, PO, q4hr, PRN: Heartburn docusate sodium 100 mg Cap: 100 mg, PO, BID, PRN: Constipation 1st Choice glucagon 1 mg Inj: 1 mg, IM, Per Parameter, PRN: Hypoglycemia glucose 4gm Chew Tab: 16 gm, PO, q15min, PRN: Hypoglycemia ketorolac 30 mg/mL Inj, 1mL: 15 mg, IV Push, q6hr, PRN: Pain Moderate (4-6) magnesium oxide 400 mg Tab: 400 mg, PO, Per Parameter, PRN: Hypomagnesemia magnesium sulf /SW: 2 gm, 50 mL, 25 mL/hr, IV, Per Parameter, PRN: Hypomagnesemia magnesium sulf /SW: 4 gm, 100 mL, 25 mL/hr, IV, Per Parameter, PRN: Hypomagnesemia melatonin 3 mg Tab: 6 mg, PO, qHS, PRN: Sleep ondansetron 2 mg/mL Inj 2mL: 4 mg, IV Push, q4hr, PRN: Nausea / Vomiting 1st Choice potassium chloride 20 mEq ER T 20 mEq, PO, Per Parameter, PRN: Hypokalemia potassium chloride 20 mEq ER T 40 mEq, PO, Per Parameter, PRN: Hypokalemia potassium Cl / SW Premix: 10 mEq, 100 mL, 100 mL/hr, IV, Per Parameter, PRN: Hypokalemia senna 8.6 mg Tab: 8.6 mg, PO, qHS, PRN: Constipation 2nd Choice IV D5W 0.9 NaCl: 75 mL/hr, IV, Stop: 11/08/21 9:34:00 [facility] Antibiotics Ordered cefTRIAXone: 1,000 mg, IV Push, q24hr 10/09/21 16:17 - Active ( 2 days ) Completed cefTRIAXone: 1,000 mg, IV Push, x1 10/08/21 23:57 - Active ( 1 days ) Assessment/Plan 1. Metabolic encephalopathy G93.41 Suspect component of dehydration and possible concussion 2. Concussion S06.0X9A Possible 3. Chronic subdural hematoma I62.03 4. Protein calorie malnutrition E46 5. Gait instability R26.81 Inferred by history and exam 6. Recurrent falls R29.6 Inferred by history and exam Plan: -Monitor mental status, avoid sedating medications as much as possible, IV fluid hydration - monitor urine output. -Neurology consult - MRI pending. Cleared by NSGY -PT/OT - Likely needs placement. -Dietary supplements -Fall precautions, PT eval Time spent with Patient Time spent in charting, examination and consultation (answering questions for Patient and family/ discussing with consultants) greater 35 mins Electronically Signed By: Emmanuel Booth DO On 10/10/21 14:20 Co Signature By: Modify Signature By: 10/10/2021 [facility] History and Physical Patient: JOSE MCKEON S Age: 71 years Sex: F : 1950 Active Insurance: MEDICARE [id number] Admitting MD: Eunice Rubin MD [place]: [facility] [place] 121: 01 PCP: PCP, No Author: Eunice Rubin MD patient seen along with RN. per son had assisted issues with gait, balance , falls and cognition. still lives alone. food is delivered to house. If able she does house work or leaves it like what it is. some of the conversations with son ok , some off. This is ongoing for a decade, but worse recently. no h/o strokes per son. she reports dysuria, though UA neg. will treat with a short course of abx just to make sure this did not precipitate acute TME and falls chronic rt frontal SDH found on CT head Incidental rt lung nodule that needs fu seen. MRI brain, neuro eval pending PT suggests rehab Electronically Signed By: Eunice Rubin MD On 10/09/21 16:21 Co Signature By: Modify Signature By: 10/09/2021 [facility] History and Physical Patient: JOSE MCKEON Age: 71 years Sex: F : 1950 Active Insurance: Admitting MD: Victoriano Raza DO [place] [facility] [place] 121: 01 PCP: PCP, Unknown Author: Victoriano Raza DO Chief Complaint AMS, multiple wounds/abrasions History of Present Illness History was limited due to patient with altered mental status. History was obtained with assistance of patient's son from out of town at bedside. 71-year-old female who apparently had not seen a doctor for 20 to 30 years without known medical history presented to ED when patient was found down and altered during welfare check earlier today. Son noted he usually face times with the patient every day and since 3 days ago, patient was not answering the FaceTime calls. Patient also did not answer his brothers calls either, hence the welfare check. Son noted patient had seemed to be somewhat more confused for the past week, though patient had been exhibiting some cognitive impairments for a few months now. Patient lives alone. Son reported recalling that patient had fallen about a year ago but was unclear whether it was known whether she had fallen since then. In the ED vitals were stable. Patient was noted with multiple abrasions and scabs on her arms and back. Per floor RN patient was also noted with dried blood on the side of her head. CBC was unremarkable CMP noted BUN 29 creatinine 0.74 ammonia level was normal lipase normal lactic acid normal BNP normal troponin negative TSH normal UDS was negative UA was negative for infection although specific gravity was elevated and there were hyaline casts noted viral respiratory panel was negative. Patient had chest x-ray and hip and pelvis x-rays that were unremarkable by independent review. CT head without contrast suggested likely chronic right-sided extra-axial subdural hematoma. Patient was given liter fluid bolus and dose of Rocephin. Neurosurgery was consulted in the ED who did not recommend surgical intervention as this appeared chronic nonacute. Review of Systems Limited due to altered mental status, as per HPI Objective Vitals and Measurements T: 36.3 ?C (Axillary) TMIN: 35.7 ?C (Tympanic) TMAX: 36.3 ?C (Axillary) HR: 76 RR: 16 BP: 107/72 SpO2: 99% Oxygen Method: Room air WT: 75.7 lbs WT: 34.331 kg Physical Exam GENERAL: Nontoxic, no acute distress, alert, oriented x 1 followed commands inconsistently, lethargic HEENT: Normocephalic, atraumatic, no scleral icterus or conjunctival injection, MMM NECK: supple, no rigidity. No thyromegaly LUNGS: Clear to auscultation bilaterally. No crackles or wheezes. CV: RRR, normal S1/S2, no gallops. GI: soft, nontender, no rebound, guarding or masses : no suprapubic or flank tenderness. EXT: No cyanosis, clubbing or distal pitting edema, well perfused. SKIN: warm and dry, no ulcerations. Multiple arms and leg abrasions and scabbing noted NEURO: no gross motor deficits, moves all extremities, gait not tested. Lab Results Common Labs - This Encounter, Most Recent, Last 24 hours Last 24 Hours Hematology-CBC 10/09/21 Coag 10/09/21 General Chemistry 10/09/21 WBC: 6.3 INR: 0.95 Sodium: 140 RBC: 4.68 PT: 10.8 Potassium: 5.1 Hgb: 14.4 PTT: 27.5 Chloride: 105 Hct: 42.0 CO2: 27 MCV: 89.8 Anion Gap: 13 MCH: 30.8 Glucose Level: 89 MCHC: 34.3 BUN:26 (H) RDW: 15.0 Creatinine: 0.67 Plt: 244 eGFR Non- Am: >60 Neuts: 76.9 eGFR Afr/Amer: >60 Lymphs: 17.3 Calcium: 8.8 Monos.: 5.2 Phosphorus: 4.4 Eos.: 0.2 M.1 Baso.: 0.4 Protein, Total: 6.6 ABS Neut: 4.8 Albumin: 3.8 ABS Lymph: 1.1 Globulin: 2.8 ABS Porter: 0.3 A/G Ratio: 1.4 ABS Eos: 0.0 Bili Total: 1.2 ABS Baso: 0.0 ALT: 38 CBC Scan: Auto Diff AST: 32 Alkphos: 118 Lipase: 10.0 Ammonia Level: 19.00 Lactic Acid: 1.31 Cardiac 06/03/22 Special Chemistry 10/09/21 Toxicology 10/09/21 B-Natriuretic Peptide: 29.9 TSH: 2.012 U Amphetamine/Methamphetamine: Negative Troponin I: <0.01 U Barbiturate: Negative U Benzodiazepine: Negative U Cocaine: Negative U Methadone: Negative U Opiates: Negative U Oxycodone: Negative U PCP: Negative U THC: Negative U Fentanyl: Negative Urinalysis 10/09/21 Microbiology/Serology 10/09/21 Color: Yellow COVID/Flu/RSV Source: [employer] Swab Appearance: Clear Influenza A, PCR: Negative Specific [place]:>=1.030 (A) Influenza B, PCR: Negative UpH: 5.0 RSV, PCR: Negative UGlucose: Negative COVID19/SARS-CoV-2 PCR Result: Negative UBilirubin:1+ (A) UIctotest:Positive (A) UKetones:1+ (A) UBlood:Trace-intact (A) UProtein:1+ (A) UNitrite: Negative ULeukocyte Esterase: Negative Urine Culture if Indicated: Not Indicated UA Squam Epithelial: None Urine WBCs:5-10 (A) URBC: 0-4 UMucous:Rare (A) UBacteria: None Hyaline Casts:3-10 (A) Additional Diagnostic Results Radiology - Full Interpretation, Last 24 hrs Name: SAQIB MCKEON Account: [id number] : 1950 Result Date: 10/09/21 02:46 Verified By: Berlin Martinez MD at 10/09/21 03:05 Report : CT Head wo Con [facility] Final Report Clinical History and Study Details: followup subdural hematoma TECHNIQUE: Clinical Event : F/U SUBDURAL HEMATOMA Unenhanced contiguous axial CT sections of the brain were obtained from the skull base to the vertex. A radiation dose optimization technique was used for this scan FINDINGS: Comparison made to previous study dated 10/08/2021. Intermediate density 7 mm thick right frontal subdural collection again noted, likely chronic subdural hemorrhage. There is mild sulcal effacement without significant midline shift. Generalized atrophy is noted with microvascular ischemic disease. The ventricles are not dilated out of proportion to sulci. The basilar cisterns are preserved. The craniocervical junction is normal. IMPRESSION: Stable appearance of chronic right frontal subdural hemorrhage. No significant midline shift. Report Dictated by Radiologist: BERLIN MARTINEZ M.D. Diplomate [employer] [facility] Requisition#: [id number] Electronically Signed by BERLIN MARTINEZ 2021-10-09 03:05:[id number] by: [email or web address] 10/09/21 03:05 +++++++++++++++++++++++++++++++ ++++++++++++++++++++++++ Result Date: 10/08/21 22:13 Verified By: Prakash Hurtado MD at 10/08/21 22:32 Report : CT Head wo Con CLINICAL HISTORY: Altered level of conciousness ADDITIONAL HISTORY: . COMPARISON: No relevant prior exams available. TECHNIQUE: Serial axial CT scan of the head are obtained without intravenous contrast. Coronal reconstructed images were submitted. All CT scans at this hospital employ automatic and/or manual dose reduction techniques to keep radiation dose as low as reasonably achievable. FINDINGS: Moderate central parenchymal volume loss is noted. Encephalomalacia in the left frontal region. Marked periventricular white matter changes demonstrated. There is a chronic extra-axial collection noted within the right frontal region measuring 8 mm with mild underlying mass effect. No evidence for acute infarct identified. No additional definite hemorrhage is seen within the cranium. No midline shift. Basilar cisterns are patent. No hydrocephalus. The visualized paranasal sinuses and mastoid air cells are well-aerated. The calvarium is intact. . IMPRESSION: Likely chronic right-sided extra-axial subdural hematoma within the orbital region the right frontal lobe with minimal underlying mass effect. No definite acute intracranial hemorrhage. Chronic changes otherwise seen.. 10/08/21 22:30 +++++++++++++++++++++++++++++++ ++++++++++++++++++++++++ Assessment/Plan 1. Metabolic encephalopathy G93.41 Suspect component of dehydration and possible concussion 2. Concussion S06.0X9A Possible 3. Chronic subdural hematoma I62.03 4. Protein calorie malnutrition E46 5. Gait instability R26.81 Inferred by history and exam 6. Recurrent falls R29.6 Inferred by history and exam Plan: -Monitor mental status, avoid sedating medications as much as possible, IV fluid hydration -Neurology consult -Repeat CT head without contrast to ensure stability of hematoma for assurance after discussion with ED provider -Dietary supplements -Fall precautions, PT eval CODE STATUS: Full code DVT prophylaxis SCDs GI prophylaxis not indicated Patient will be admitted under outpatient services under Observation status expected to spend <2 midnights Pt Care Time: [id number] time with the patient including history of present illness, physical examination, reviewing labs and imaging, care coordination and discussing the plan with the patient, nursing and ED physician > 65 minutes. Greater than 50% of this time was spent in direct patient counseling and coordination of care. Disclaimer: This note was prepared using the [employer] voice recognition program, as well as pre-populated templates and macros. Despite best efforts at reviewing and proofreading the note, some inadvertent errors may be present. Please contact the author if any clarifications or corrections are requested Orders: Tylenol oral TABLET, 650 mg, PO, [...] if Present on Admission PT Initial Evaluation and Treatment Pulse Oximetry Regular Diet Sequential Compression Device Video Education: Hospital Visit Expectations Video Education: Pain Management VTE Moderate Risk Problem List/Past Medical History Ongoing Past medical history unknown Historical No qualifying data Procedure/Surgical History None Home Medications No active home medications Allergies No Known Medication Allergies Reaction: None Documented Social History Alcohol Denies, 10/08/2021 Home/Environment Yazidi restrictions/concerns: None. Lives with Alone. Living situation: apartment. Alcohol abuse in household: No. Substance abuse in household: No. Smoker in household: No. Injuries/Abuse/Neglect in household: No. Feels unsafe at home: Yes. Safe place to go: No. Family/Friends available for support: Yes. Concern for family members at home: No. Major illness in household: No., 10/09/2021 Nutrition/Health Diet: Regular., 10/09/2021 Substance Abuse Denies, 10/08/2021 Tobacco Never (less than 100 in lifetime), 10/09/2021 Family History Unable to obtain Electronically Signed By: Victoriano Raza DO On 10/09/21 07:10 Co Signature By: Modify Signature By: Victoriano Raza DO On 10/09/21 07:10 10/09/2021 [facility] Vital Signs Vital Sign Value Date Comments Source Bed alarm on No (10/29/21 12:00 PM) 10/29/2021 [facility] [place] Bed alarm on No (10/29/21 10:00 AM) 10/29/2021 [facility] Bed alarm on No (10/29/21 8:00 AM) 10/29/2021 [facility] Temperature PO 36.3 [place] 10/29/2021 [facility] Systolic 104 mm[Hg] 10/29/2021 [facility] Diastolic 52 mm[Hg] 10/29/2021 [facility] Heart Rate 68 bpm 10/29/2021 [facility] Respiratory Rate 18 Breaths/Min 10/29/2021 [facility] SPO2 98 % 10/29/2021 [facility] Temperature Temporal Artery 37.1 [place] 10/29/2021 [facility] Systolic 94 mm[Hg] 10/29/2021 [facility] Diastolic 58 mm[Hg] 10/29/2021 [facility] Heart Rate 89 bpm 10/29/2021 [facility] Respiratory Rate 16 Breaths/Min 10/29/2021 [facility] SPO2 94 % 10/29/2021 [facility] Temperature PO 36.7 [place] 10/28/2021 [facility] Systolic 115 mm[Hg] 10/28/2021 [facility] Diastolic 67 mm[Hg] 10/28/2021 [facility] Heart Rate 62 bpm 10/28/2021 [facility] Respiratory Rate 20 Breaths/Min 10/28/2021 [facility] SPO2 98 % 10/28/2021 [facility] Temperature PO 35.9 [place] 10/28/2021 [facility] Heart Rate 81 bpm 10/28/2021 [facility] Systolic 111 mm[Hg] 10/28/2021 [facility] Diastolic 66 mm[Hg] 10/28/2021 [facility] Respiratory Rate 18 Breaths/Min 10/28/2021 [facility] SPO2 96 % 10/28/2021 [facility] Oxygen Method Room air (10/27/21 7:28 PM) 10/28/2021 [facility] Temperature PO 36.6 [place] 10/27/2021 [facility] Systolic 108 mm[Hg] 10/27/2021 [facility] Diastolic 59 mm[Hg] 10/27/2021 [facility] Heart Rate 59 bpm 10/27/2021 [facility] Respiratory Rate 20 Breaths/Min 10/27/2021 [facility] SPO2 99 % 10/27/2021 [facility] Glucose Level 82 mg/dL 10/27/2021 [facility] Temperature Temporal Artery 36.9 [place] 10/27/2021 [facility] Systolic 103 mm[Hg] 10/27/2021 [facility] Diastolic 60 mm[Hg] 10/27/2021 [facility] Heart Rate 92 bpm 10/27/2021 [facility] Respiratory Rate 16 Breaths/Min 10/27/2021 [facility] SPO2 96 % 10/27/2021 [facility] Temperature PO 36 [place] 10/26/2021 [facility] Temperature Rectal 36.6 [place] 10/26/2021 [facility] Systolic 108 mm[Hg] 10/26/2021 [facility] Diastolic 64 mm[Hg] 10/26/2021 [facility] Heart Rate 72 bpm 10/26/2021 [facility] Respiratory Rate 20 Breaths/Min 10/26/2021 [facility] SPO2 98 % 10/26/2021 [facility] Heart Rate 76 bpm 10/26/2021 [facility] Oxygen Method Room air (10/25/21 10:05 PM) 10/26/2021 [facility] Systolic 116 mm[Hg] 10/26/2021 [facility] Diastolic 64 mm[Hg] 10/26/2021 [facility] Temperature Temporal Artery 36.8 [place] 10/26/2021 [facility] Heart Rate 91 bpm 10/26/2021 [facility] Respiratory Rate 16 Breaths/Min 10/26/2021 [facility] SPO2 95 % 10/26/2021 [facility] Temperature PO 36.4 [place] 10/25/2021 [facility] Heart Rate 67 bpm 10/25/2021 [facility] Respiratory Rate 16 Breaths/Min 10/25/2021 [facility] SPO2 98 % 10/25/2021 [facility] Systolic 108 mm[Hg] 10/25/2021 [facility] Diastolic 62 mm[Hg] 10/25/2021 [facility] Temperature PO 35.8 [place] 10/25/2021 [facility] Systolic 112 mm[Hg] 10/25/2021 [facility] Diastolic 67 mm[Hg] 10/25/2021 [facility] Respiratory Rate 20 Breaths/Min 10/25/2021 [facility] SPO2 98 % 10/25/2021 [facility] Temperature PO 36.6 [place] 10/24/2021 [facility] Oxygen Method Room air (10/24/21 5:00 AM) 10/24/2021 [facility] Temperature PO 36.0 [place] 10/24/2021 [facility] Temperature Temporal Artery 37.0 [place] 10/23/2021 [facility] Temperature Temporal Artery 37.0 [place] 10/22/2021 [facility] Temperature PO 35.6 [place] 10/21/2021 [facility] Temperature Temporal Artery 37.1 [place] 10/21/2021 [facility] Temperature Temporal Artery 36.7 [place] 10/20/2021 [facility] Oxygen Method Room air (10/20/21 5:00 AM) 10/20/2021 [facility] Glucose Level 73 mg/dL 10/20/2021 [facility] Oxygen Method Room air (10/19/21 6:00 PM) 10/20/2021 [facility] Temperature Temporal Artery 37 [place] 10/19/2021 [facility] Oxygen Method Room air (10/19/21 5:00 AM) 10/19/2021 [facility] Oxygen Method Room air (10/18/21 8:00 PM) 10/19/2021 [facility] Oxygen Method Room air (10/18/21 5:00 AM) 10/18/2021 [facility] Oxygen Method Room air (10/17/21 6:00 PM) 10/18/2021 [facility] Oxygen Method Room air (10/17/21 5:00 AM) 10/17/2021 [facility] Tympanic Temp 36.6 [place] 10/14/2021 [facility] Glucose Level 78 mg/dL 10/13/2021 [facility] Height 147.32 cm 10/13/2021 [facility] Weight Method Actual (10/12/21 5:45 PM) 10/13/2021 [facility] Drug Calc Weight (kg) 35.9 kg 10/13/2021 [facility] BMI 16.54 kg/m2 10/13/2021 [facility] Bed alarm on Yes (10/12/21 4:30 PM) 10/12/2021 [facility] Temperature PO 36.4 [place] 10/12/2021 [facility] Heart Rate 83 bpm 10/12/2021 [facility] Respiratory Rate 16 Breaths/Min 10/12/2021 [facility] Oxygen Method Room air (10/12/21 3:24 PM) 10/12/2021 [facility] SPO2 100 % 10/12/2021 [facility] Systolic 100 mm[Hg] 10/12/2021 [facility] Diastolic 67 mm[Hg] 10/12/2021 [facility] Glucose (POCT) 102 mg/dL 10/12/2021 [facility] Bed alarm on Yes (10/12/21 12:10 PM) 10/12/2021 [facility] Temperature PO 36.5 [place] 10/12/2021 [facility] Heart Rate 91 bpm 10/12/2021 [facility] Respiratory Rate 18 Breaths/Min 10/12/2021 [facility] Oxygen Method Room air (10/12/21 12:00 PM) 10/12/2021 [facility] SPO2 100 % 10/12/2021 [facility] Systolic 111 mm[Hg] 10/12/2021 [facility] Diastolic 70 mm[Hg] 10/12/2021 [facility] Living Situation Lives alone (10/12/21 11:00 AM) 10/12/2021 [facility] Living Situation Lives alone (10/12/21 8:16 AM) 10/12/2021 [facility] Bed alarm on Yes (10/12/21 8:10 AM) 10/12/2021 [facility] Glucose (POCT) 83 mg/dL 10/12/2021 [facility] Glucose (POCT) 78 mg/dL 10/12/2021 [facility] Oxygen Method Room air (10/12/21 4:00 AM) 10/12/2021 [facility] Temperature Axillary 36.4 [place] 10/12/2021 [facility] Heart Rate 65 bpm 10/12/2021 [facility] Respiratory Rate 14 Breaths/Min 10/12/2021 [facility] SPO2 95 % 10/12/2021 [facility] Systolic 106 mm[Hg] 10/12/2021 [facility] Diastolic 65 mm[Hg] 10/12/2021 [facility] Oxygen Method Room air (10/12/21 12:00 AM) 10/12/2021 [facility] SPO2 96 % 10/12/2021 [facility] Glucose (POCT) 91 mg/dL 10/12/2021 [facility] Temperature PO 36.8 [place] 10/12/2021 [facility] Heart Rate 75 bpm 10/12/2021 [facility] Respiratory Rate 16 Breaths/Min 10/12/2021 [facility] Oxygen Method Room air (10/11/21 7:00 PM) 10/12/2021 [facility] SPO2 98 % 10/12/2021 [facility] Systolic 117 mm[Hg] 10/12/2021 [facility] Diastolic 66 mm[Hg] 10/12/2021 [facility] Glucose (POCT) 93 mg/dL 10/12/2021 [facility] Temperature PO 36.6 [place] 10/11/2021 [facility] Heart Rate 85 bpm 10/11/2021 [facility] Respiratory Rate 18 Breaths/Min 10/11/2021 [facility] Oxygen Method Room air (10/11/21 4:21 PM) 10/11/2021 [facility] SPO2 99 % 10/11/2021 [facility] Systolic 109 mm[Hg] 10/11/2021 [facility] Diastolic 72 mm[Hg] 10/11/2021 [facility] Oral Care performed Complete assist (10/11/21 4:00 PM) 10/11/2021 [facility] Glucose (POCT) 132 mg/dL 10/11/2021 [facility] Living Situation Lives alone (10/11/21 11:35 AM) 10/11/2021 [facility] Systolic 100 mm[Hg] 10/11/2021 [facility] Diastolic 63 mm[Hg] 10/11/2021 [facility] Temperature PO 36.3 [place] 10/11/2021 [facility] Heart Rate 89 bpm 10/11/2021 [facility] Respiratory Rate 18 Breaths/Min 10/11/2021 [facility] Oxygen Method Room air (10/11/21 8:00 AM) 10/11/2021 [facility] SPO2 100 % 10/11/2021 [facility] Systolic 94 mm[Hg] 10/11/2021 [facility] Diastolic 59 mm[Hg] 10/11/2021 [facility] Oral Care performed Complete assist (10/11/21 8:00 AM) 10/11/2021 [facility] Glucose (POCT) 108 mg/dL 10/11/2021 [facility] Temperature PO 36.4 [place] 10/11/2021 [facility] Heart Rate 74 bpm 10/11/2021 [facility] Respiratory Rate 18 Breaths/Min 10/11/2021 [facility] Oxygen Method Room air (10/11/21 4:00 AM) 10/11/2021 [facility] SPO2 94 % 10/11/2021 [facility] Systolic 126 mm[Hg] 10/11/2021 [facility] Diastolic 78 mm[Hg] 10/11/2021 [facility] NIBP Mean 94 mm[Hg] 10/11/2021 [facility] Glucose Level 81 mg/dL 10/11/2021 [facility] Temperature PO 37.1 [place] 10/11/2021 [facility] Heart Rate 99 bpm 10/11/2021 [facility] Respiratory Rate 18 Breaths/Min 10/11/2021 [facility] Oxygen Method Room air (10/10/21 8:46 PM) 10/11/2021 [facility] SPO2 96 % 10/11/2021 [facility] Systolic 107 mm[Hg] 10/11/2021 [facility] Diastolic 60 mm[Hg] 10/11/2021 [facility] NIBP Mean 76 mm[Hg] 10/11/2021 [facility] Glucose (POCT) 179 mg/dL 10/11/2021 [facility] Glucose (POCT) 280 mg/dL 10/11/2021 [facility] Temperature PO 36.4 [place] 10/10/2021 [facility] Heart Rate 100 bpm 10/10/2021 [facility] Respiratory Rate 18 Breaths/Min 10/10/2021 [facility] Oxygen Method Room air (10/10/21 4:02 PM) 10/10/2021 [facility] SPO2 98 % 10/10/2021 [facility] Systolic 116 mm[Hg] 10/10/2021 [facility] Diastolic 73 mm[Hg] 10/10/2021 [facility] Temperature PO 36.8 [place] 10/10/2021 [facility] Heart Rate 81 bpm 10/10/2021 [facility] Respiratory Rate 16 Breaths/Min 10/10/2021 [facility] Temperature PO 36.4 [place] 10/10/2021 [facility] NIBP Mean 75 mm[Hg] 10/10/2021 [facility] Glucose Level 115 mg/dL 10/10/2021 [facility] Glucose (POCT) 182 mg/dL 10/10/2021 [facility] NIBP Mean 95 mm[Hg] 10/10/2021 [facility] Temperature Axillary 36.3 [place] 10/09/2021 [facility] Current Living Environment Home/Independent (10/09/21 2:11 PM) 10/09/2021 [facility] Lives In (SW) Apartment (10/09/21 2:11 PM) 10/09/2021 [facility] Lives With (SW) Alone (10/09/21 2:11 PM) 10/09/2021 [facility] Eating Self (10/09/21 2:11 PM) 10/09/2021 [facility] Bathing Self (10/09/21 2:11 PM) 10/09/2021 [facility] Dressing Self (10/09/21 2:11 PM) 10/09/2021 [facility] Transferring Self (10/09/21 2:11 PM) 10/09/2021 [facility] Toileting Self (10/09/21 2:11 PM) 10/09/2021 [facility] Walking Self (10/09/21 2:11 PM) 10/09/2021 [facility] Balancing Self (10/09/21 2:11 PM) 10/09/2021 [facility] Sensory Deficits None (10/09/21 2:11 PM) 10/09/2021 [facility] Temperature Axillary 36.2 [place] 10/09/2021 [facility] Sensory Deficits None (10/09/21 2:21 AM) 10/09/2021 [facility] Eating Self (10/09/21 2:21 AM) 10/09/2021 [facility] Bathing Self (10/09/21 2:21 AM) 10/09/2021 [facility] Dressing Self (10/09/21 2:21 AM) 10/09/2021 [facility] Transferring Self (10/09/21 2:21 AM) 10/09/2021 [facility] Toileting Self (10/09/21 2:21 AM) 10/09/2021 [facility] Walking Self (10/09/21 2:21 AM) 10/09/2021 [facility] Balancing Self (10/09/21 2:21 AM) 10/09/2021 [facility] Height 147.32 cm 10/09/2021 [facility] Weight Method Actual (10/09/21 2:21 AM) 10/09/2021 [facility] Drug Calc Weight (kg) 34.331 kg 10/09/2021 [facility] BMI 15.82 kg/m2 10/09/2021 [facility] Temperature Axillary 36.3 [place] 10/09/2021 [facility] NIBP Mean 83 mm[Hg] 10/09/2021 [facility] Glucose Level 89 mg/dL 10/09/2021 [facility] Current Living Environment Home/Independent (10/08/21 11:45 PM) 10/09/2021 [facility] Lives In (SW) Apartment (10/08/21 11:45 PM) 10/09/2021 [facility] Lives With (SW) Alone (10/08/21 11:45 PM) 10/09/2021 [facility] Sensory Deficits None (10/08/21 11:45 PM) 10/09/2021 [facility] Eating Self (10/08/21 11:45 PM) 10/09/2021 [facility] Bathing Self (10/08/21 11:45 PM) 10/09/2021 [facility] Dressing Self (10/08/21 11:45 PM) 10/09/2021 [facility] Transferring Self (10/08/21 11:45 PM) 10/09/2021 [facility] Toileting Self (10/08/21 11:45 PM) 10/09/2021 [facility] Walking Self (10/08/21 11:45 PM) 10/09/2021 [facility] Balancing Self (10/08/21 11:45 PM) 10/09/2021 [facility] Glucose Level 114 mg/dL 10/09/2021 [facility] Height 157.48 cm 10/09/2021 [facility] Weight Method Estimated (10/08/21 7:30 PM) 10/09/2021 [facility] Drug Calc Weight (kg) 36.281 kg 10/09/2021 [facility] BMI 14.63 kg/m2 10/09/2021 [facility] Tympanic Temp 35.7 [place] 10/09/2021 [facility] Encounters Location Location Details Encounter Type Encounter Number Reason For Visit Attending Provider ADM Date DC Date Status Source [facility] Inpatient [id number] Emmanuel Booth 10/09 [facility] Inpatient [id number] Jessica Leavitt 10/13 [facility] Outpatient [id number] Channing Odell 10/19 [facility] Social History Social History Date Source Social History TypeResponse Smoking Status Never (less than 100 in lifetime) entered on: 10/09/21 Sex 10/09/2021 [facility] nter Social History TypeResponse Smoking Status Never (less than 100 in lifetime) entered on: 10/09/21 Sex 10/09/2021 [facility] Social History TypeResponse Smoking Status Never (less than 100 in lifetime) entered on: 10/09/21 Sex 10/09/2021 [facility] Assessment and Plan Result Assessment and Plan Date Source Assessment and Plan Extracted from:Title: Neuropsychology Consultation Author: Janneth Guajardo PsyD Date: 10/16/21 Inpatient Neuropsychological Consultation Report Name: Saqib Mckeon : 1950 Sex: Female Age: 71 years Handedness: Right Education: 16 years Referring Physician: Jessica Leavitt MD Date of Evaluation: 10/14/2021nd 10/16/2021 PROCEDURES: 04443 x 1 51218 x 1 31345 x 1 10/14/2021--Start time: 1:32 p.m. End time: 1:40 p.m. *Consultation had to be discontinued as the patient was scheduled for OT. 10/16/2021 S tart time: 1:27 p.m. End time: 1:58 p.m. In addition to direct time spent during the clinical interview, neuropsychological test administration, and integrative feedback to the patient and/or caregivers, total time also includes the licensed psychologist s time spent for chart review, scoring, interpretation of findings, coordination of care with staff and providers, and report preparation. History of present illness: According to medical records, the patient was admitted to the rehabilitation facility due to metabolic encephalopathy and concussion. The patient presented to [facility] after a GLF in which she sustained multiple subdural hematomas, primary one being a small R sided subdural hematoma without mass effect. The patient was noted to have superimposed delirium and metabolic encephalopathy with a baseline of potential cognitive impairment. For a comprehensive medical history and medication list, please refer to the patient s chart. This patient was referred for [...] and reason for consult was provided. The patient s son was present for the initial encounter on 10/14/2021 with obtained verbal consent from the patient and assisted with providing and confirming background information. The patient s son flew back to [place] on 10/14/2021. Current Symptoms: Cognitive: The patient did not report any changes in cognition following the fall. The patient?s son noted there has been evidence of cognitive decline over the past year with more noticeable decline after the recent fall. ADLs: The patient was independent in grooming/personal hygiene, dressing, toileting/continence, transferring/ambulating, and eating prior to the fall. The patient does not drive and noted her son assists with her finances. Emotional/Behavioral: The patient described her mood as l ovely . She did not report any issues [...] The patient was born and raised in [place]. 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 The patient has 2 sons (1 resides in [place] and the other in [place]). The patient reportedly lived alone prior to the fall. Her son mentioned they were considering moving her to [place] to live in a 24-hour care facility [...] frequently on her son who resides in [place] and how he has a new baby [...] it and also would appear to have z oning out moments that resulted in her asking what had been said as she did not hear it. Volume of speech was normal. Modifications were made to the battery due to exhibited cognitive and language issues. The patient was cooperative throughout the examination and completed all administered tasks to which she was capable. Tests administered: Cognistat, Oral [place] Making Test-Parts A and B, Clock Drawing [...] Functioning: On the clock drawing test, the patient s drawing included all necessary numbers. Placement was poor and as a result she was unable to draw the clock hands. Emotional/Behavioral: The patient s responses on the GDS-15 yielded a [...] hope for a positive recovery outcome. The patient s course should continue to be monitored [...] persist following discharge. [facility] and [facility] provide these services. 5. The patient may consider a referral for an outpatient occupational therapy evaluation to assist with improving functioning of day-to-day tasks and work-related duties if cognitive issues persist following discharge. Taniya Cruz OTR/L ([phone]) is an occupational therapist with [facility] who specializes in memory compensation training for survivors of brain injury or other neurological impairments and development of strategies to compensate for residual memory and cognitive impairment in home, work, and school settings. 6. Continued monitoring of ADLs and safety is recommended. The patient and their family are encouraged to keep an open dialogue pertaining to the patient s ability to manage daily tasks. This will allow the patient and their family the ability to recognize when and if increased assistance may be needed. 7. The patient and their family may consider purchasing a medical alert device to ensure they are able to contact the appropriate personnel in case of an emergency. 8. [facility] has a Family Caregiver Support Program that provides case management, respite care, support groups and other assistance. They can perform a no cost in-home evaluation if deemed necessary. For more information, the patient s family can call [phone] to ask for a referral for the Family Caregiver Support Program (www.aaaphx.org). 9. The patient was encouraged to increase participation in cognitively and socially stimulating activities. The patient may find word searches, puzzles, crosswords, or handheld games enjoyable, which can be found at a local [employer] store. Reminiscing activities can also be pleasurable for individuals. For instance, focusing on pleasant activities/events from one s past, such as significant events (best birthday, weddings, etc.), favorite memories from each season, favorite place to vacation, school days, sports, are topics to consider among others. a. [employer] is a [employer] that provides in-home services for cognitive stimulation and counseling needs (www.[employer]; ). 10. The patient may consider participating in individual psychotherapy if they find they are having a difficult time managing depression and anxiety related to any possible lifestyle adjustments/disability. b. [facility] ([facility]) can provide such services and accepts most insurance plans including Medicare. i. [phone] 11. The patient is encouraged to continue participation in cognitively and socially stimulating activities for overall health and well-being. 12. The patient s son stated he plans to fly the patient out to [place] and was inquiring about medical clearance to do so. He was encouraged to speak with the patient s medical team regarding the inquiry. c. The patient s son was recommended to take the [...] the following resources helpful: n. [facility] www.biazz.org 15. A follow up neuropsychological evaluation 3-6 months post discharge may be considered if cognitive issues persist. [facility] ([phone]) provide such services in [place], [place]. 16. I will follow up with this patient, during the patient's inpatient stay, on an as needed basis. Thank you for including me in the care of this patient. Janneth Guajardo Psy.D., Clinical Neuropsychologist Extracted from:Title: Neuro Consultation Author: Claudia Minor MD Date: 10/15/21 Impression and Plan Diagnosis Diagnosis . Acute intracranial hemorrhage ([id number] I62.9, Discharge, Medical). Plan: 1. Subdural Hematoma [...] list: All Problems Chronic subdural hematoma / [id number] / Confirmed Canceled: Past medical history unknown / [id number]. Extracted from:Title: Neuropsychology Encounter Author: Janneth Guajardo PsyD Date: 10/14/21 This provider attempted to meet with the patient for neuropsychological consultation on 10/14/2021 but the session was ended early due to OT therapy being scheduled for that time. This provider will make another attempt to meet with the patient. Thank you for including me in the care of this patient. Janneth Guajardo Psy.D., Clinical Neuropsychologist 10/29/2021 [facility] Assessment and Plan No data available for this section 10/21/2021 [facility] Assessment and Plan Extracted from:Title: Discharge Summary Note Author: Emmanuel Booth DO Date: 10/12/21 Medications to Continue 1. TNF Medication(NO HOME MEDICATIONS) Discontinued Meds Discharge Order Details: 10/12/21 13:56:00 MST, Now, Rehabilitation Facility Discharge Activity Order Details: 10/12/21 13:56:00 MST, As tolerated Discharge Services per Case Management Order Details: 10/12/21 16:13:30 MST Discharge Services per Case Management Order Details: 10/12/21 18:33:45 MST Intent to Admit (ED only) Order Details: 10/08/21 23:30:00 MST, Medical Surgical with Telemetry, AMS Discharge Activity Order Details: 10/12/21 13:56:00 MST, As tolerated Follow-Up Details: Provider/Org Name: Nohemi Milton DO Within: 1 to 3 days Address: [address] [place] [id number]; ; It is criticalthat you follow-up with your physicians on an outpatient basis. Please take all of your medications and follow-up for any labs as indicated on this discharge note. Please return to your local emergency room if your symptoms worsen. Please contact your PCP if you have any questions or concerns. Thank you, it was a pleasure taking care of you. Extracted from:Title: Neurology Consult Note Author: Jonathan Angeles MD Date: 10/09/21 71-year-old ladywho was found on the ground of unknown circumstances,she has a diffuse cachexia, weakness,many years of decrease ingait stability, and decrease in memorymore prominent in the last 2 to 3 months. No evidence of infection Most likely this is representation of metabolic encephalopathysuperimposed on a dementia. Possible the subdural hematoma playing a role. And for unknownshort of time. Patient definitely has poor nutrition andfailure to thrive. CT scan of the cervical, thoracic and lumbar spine did not show any acute fractures. Await MRI of the brain. Nutrition consultation General blood work-up so far not significant Physical therapy Cognitive evaluation Speech pathology Follow-up as an outpatient with [facility] 1.Metabolic [id number] 2.[id number] 3.Chronic subdural innchpoeE44.03 4.Protein calorie ioeciaxqluvhL32 5.Gait ltcdsjegodwP88.81 6.Recurrent omahzF94.6 Orders: Brain MRI wo+w Contrast Extracted from:Title: Admission H and P Author: Victoriano Raza DO Date: 10/09/21 1.Metabolic rlwdopemrmauihI98.41 Suspectcomponent of dehydrationand possible concussion 2.KzxalodbbcZ87.0X9A Possible 3.Chronic subdural ipcpljqiP78.03 4.Protein calorie imjdtmuwsehqP84 5.Gait hkucoiydmxnJ38.81 Inferred by history and exam 6.Recurrent fvnvtB05.6 Inferred by history and exam Plan: -Monitor mental status, avoid sedating medications as much as possible, IV fluid hydration -Neurology consult -Repeat CT headwithout contrast to ensurestability of hematomafor assuranceafter discussion with ED provider -Dietary supplements -Fall precautions, PTeval CODE STATUS: Full code DVT prophylaxisSCDs GI prophylaxis not indicated Patient will be admitted under outpatient servicesunder Observation status expected to spend <2 midnights Pt Care Time: Keld-qj-utdq time with the patient including history of present illness, physical examination, reviewing labs and imaging, care coordination and discussing the plan with the patient, nursing and ED physician > 65 minutes. Greater than 50% of this time was spent in direct patient counseling and coordination of care. Disclaimer:This note was prepared using theAnte Upice recognition program, as well as pre-populated templates and macros. Despite best efforts at reviewing and proofreading the note, some inadvertent errors may be present. Please contact the author if any clarifications or corrections are requested Orders: Tylenol oral TABLET, 650 mg, PO, [...] if Present on Admission PT Initial Evaluation and Treatment Pulse Oximetry Regular Diet Sequential Compression Device Video Education: Hospital Visit Expectations Video Education: Pain Management VTE Moderate Risk Future Appointments Appointment Date: 10/20/2021 04:30:00 PM Scheduled Provider: Location: [facility] Appointment Type: CT Head/Neck wo Con EV Future Scheduled TestsRadiologyCT Head wo Con 10/20/21 10/13/2021 [facility]
--- OUTSIDE RECORDS SUMMARY | 2023-11-11 09:19 | XMS_ITS | Continuity of Care Document ---
Author Organization [facility] Address [address] [place] [address]- Care Team Providers Care Order Processor Name Role Phone PCP, No Primary Care Physician Unavailab le Encounter EVSA_FIN [id number] Date(s): 10/08/21 - 10/12/21 [facility] [address] [place], [place] [address] Encounter Diagnosis Metabolic encephalopathy(Discharge Diagnosis) - 10/09/21 Concussion(Discharge Diagnosis) - 10/09/21 Chronic subdural hematoma(Discharge Diagnosis) - 10/09/21 Protein calorie malnutrition(Discharge Diagnosis) - 10/09/21 Gait instability(Discharge Diagnosis) - 10/09/21 Recurrent falls(Discharge Diagnosis) - 10/09/21 Discharge Disposition: Rehab Facility Attending Physician: Emmanuel Booth DO Admitting Physician: Emmanuel Booth DO Allergies, Adverse Reactions, Alerts No Known Medication Allergies Substance Reaction Severity Status [place] NAUSEA Mild Active Wheat Nausea Mild Active Assessment and Plan Extracted from: Title:Discharge Summary Note Author:Ariana Booth DO Date:10/12/21 ??Medications to Continue?? 1. TNF Medication(NO HOME MEDICATIONS)?Discontinued Meds ?? Discharge ? Order Details: ?10/12/21 13:56:00 [facility], Now, Rehabilitation Facility?? Discharge Activity ? Order [...] [facility] [address] [facility] [address]; ; ? It is critical??that you follow-up [...] spend <2 midnights ? Pt Care Time: ??Qjli-zi-wsrw time with the patient including history of [...] Management VTE Moderate Risk Future Appointments Appointment Date:10/20/2021 04:30:00 PM Scheduled Provider: Location:[facility] JOSE MARIA Appointment Type:CT Head/Neck wo Con EV Future Scheduled Tests Radiology* CT Head wo Con 10/20/21 Medications acetaminophen oral TABLET 650 mg, PO, [...] mg/dl), for 5 Day, Start: 10/09/21 2:20:00 [facility], Stop: 10/14/21 2:19:00 [facility] Notes: Note dose, age, renal function, duration [...] 9:07 PM) Baso. [0.0-3.0 %] 0.6 % (10/11/21 2:21 AM) 0.5 % (10/10/21 4:19 AM) 0.4 [...] [Negative] Negative (10/09/21 12:37 AM) COVID/Flu/RSV Source LAST [employer] AW[employer] Swab *NA* (10/08/21 8:25 PM) A/G Ratio [...] AM) 0.9 thousand/uL (10/08/21 9:07 PM) ABS [place] [0.0-1.6 thousand/uL] 0.3 thousand/uL (10/11/21 2:21 AM) [...] mg/dL (10/11/21 2:21 AM) 0.56 mg/dL *L* (10/10/21 4:19 AM) 0.67 mg/dL (10/09/21 12:18 AM) 0.74 mg/dL (10/08/21 9:07 PM) Folate [>=3.5 ng/mL] 4.6 ng/mL (10/09/21 12:18 AM) Globulin [2.3-3.5 gm/dL] 2.8 gm/dL (10/08/21 9:07 PM) Hct [37.0-47.0 %] 36.8 % *L* (10/11/21 2:21 AM) 34.2 % *L* (10/10/21 4:19 AM) 42.0 % (10/09/21 12:18 AM) 46.7 % (10/08/21 9:07 PM) Hgb [11.5-16.0 gm/dL] 12.5 gm/dL (10/11/21 2:21 AM) 11.8 gm/dL (10/10/21 4:19 AM) 14.4 gm/dL (10/09/21 12:18 AM) 15.9 gm/dL (10/08/21 9:07 PM) Hyaline Casts [0-2 per LPF] 3-10 per LPF *ABN* (10/09/21 12:37 AM) INR 0.95 *NA* (10/08/21 9:07 PM) Lactic Acid [0.50-2.00 mmol/L] 1.31 mmol/L (10/08/21 9:07 PM) Lipase [8.0-78.0 Units/L] 10.0 Units/L (10/08/21 9:07 PM) MCH [27.0-34.0 pg] 31.0 pg (10/11/21:21 AM) 31.0 pg (10/10/21:19 AM) 30.8 pg (10/09/21:18 AM) 30.8 pg (10/08/21 9:07 PM) MCHC [32.0-37.0 gm/dL] 33.9 gm/dL (10/11/21:21 AM) 34.6 gm/dL (10/10/21:19 AM) 34.3 gm/dL (10/09/21 12:18 AM) 34.0 gm/dL (10/08/21 9:07 PM) MCV [80.0-100.0 fL] 91.6 fL (10/11/21: AM) 89.6 fL (10/10/21:19 AM) 89.8 fL (10/09/21:18 AM) 90.6 fL (10/08/21 9:07 PM) Mg [1.6-2.6 mg/dL] 2.1 mg/dL (10/08/21 9:07 PM) Phosphorus [2.3-4.7 mg/dL] 4.4 mg/dL (10/08/21 9:07 PM) Plt [130-400 thousand/uL] 183 thousand/uL (10/11/21:21 AM) 182 thousand/uL (10/10/21:19 AM) 244 thousand/uL (10/09/21 12:18 AM) 256 thousand/uL (10/08/21 9:07 PM) Protein, Total [6.0-8.3 gm/dL] 6.6 gm/dL (10/08/21 9:07 PM) PT [10.0-12.3 sec] 10.8 sec (10/08/21 9:07 PM) PTT [25.5-36.0 sec] 27.5 sec (10/08/21 9:07 PM) RBC [4.00-5.40 million/uL] 4.01 million/uL (10/11/21 2:21 AM) 3.82 million/uL *L* (10/10/21:19 AM) 4.68 million/uL (10/09/21 12:18 AM) 5.16 million/uL (10/08/21 9:07 PM) RDW [11.5-16.0 %] 15.0 % (10/11/21 2:21 AM) 15.0 % (10/10/21 4:19 AM) 15.0 % (10/09/21 12:18 AM) 14.7 % (10/08/21 9:07 PM) Sodium [136-145 mmol/L] 140 mmol/L (10/11/21 2:21 AM) 140 mmol/L (10/10/21 4:19 AM) 140 mmol/L (10/09/21:18 AM) 141 mmol/L (10/08/21 9:07 PM) Specific [place] [1.008-1.020] >=1.030 *ABN* (10/09/21 12:37 AM) Troponin [...] Culture Blood 10/09/21 Microbiology Reports TEST:Culture Blood1 STATUS:Auth (Verified) BODY SITE:Peripheral SOURCE:Blood COLLECTED DATE/TIME:10/09/21 12:18 AM FINAL REPORT No growth at 5 days. TEST:Culture Blood2 STATUS:Auth (Verified) BODY SITE:Peripheral SOURCE:Blood COLLECTED DATE/TIME:10/09/21 12:18 AM FINAL REPORT No growth at 5 days. INTERPRETIVE DATA 1When performed, GIOVANNI values are reported in mcg/ml. 2When performed, GIOVANNI values are reported in mcg/ml. Vital Signs Most recent to oldest [Reference Range]: 1 2 3 4 5 6 7 8 9 10 Temperature PO [36-37.5 deg C] 36.4 deg C (10/12/21 3:24 PM) 36.5 deg C (10/12/21 12:00 PM) 36.8 deg C (10/11/21 7:00 PM) 36.6 deg C (//2 2 4:21 PM) 36.3 deg C (//2 2 8:00 AM) 36.4 deg C (//2 2 4:00 AM) 37.1 deg C (10/10/2 2 8:46 PM) 36.4 deg C (10/10/2 2 4:02 PM) 36.8 deg C (//2 2 8:11 AM) 36.4 deg C (10/10/2 2 4:26 AM) Temp Tympanic [36-37.5 deg C] 35.7 deg C *L* (10/08/21 7:30 PM) Temperature Axillary [36.2-38.1 deg C] 36.4 deg C (10/12/21 4:00 AM) 36.3 deg C (10/09/21 3:00 PM) 36.2 deg C (10/09/21 8:00 AM) 36.3 deg C (2 2 1:45 AM) Heart Rate [51-119 bpm] 83 bpm (10/12/21 3:24 PM) 91 bpm (10/12/21 12:00 PM) 65 bpm (10/12/21 4:00 AM) 75 bpm (5/2 2 7:00 PM) 85 bpm (5/2 2 4:21 PM) 89 bpm (/5/2 2 8:00 AM) 74 bpm (/5/2 2 4:00 AM) 99 bpm (/4/2 2 8:46 PM) 100 bpm (/4/2 2 4:02 PM) 81 bpm (/4/2 2 8:11 AM) Blood Pressure [91-139/51-89 mm Hg] 100/67mm Hg (10/12/21 3:24 PM) 111/70mm Hg (10/12/21 12:00 PM) 106/65m m Hg (6/6/22 4:00 AM) 117/66 mm Hg (6/5/2 2 7:00 PM) 109/72 mm Hg (6/5/2 2 4:21 PM) 100/63 mm Hg (6/5/2 2 8:57 AM) 94/59m m Hg (6/5/2 2 8:00 AM) 126/78 mm Hg (6/5/2 2 4:00 AM) 107/60 mm Hg (6/4/2 2 8:46 PM) 116/73 mm Hg (6/4/2 2 4:02 PM) NIBP Mean 94 mm Hg (22 4:00 AM) 76 mm Hg (//22 8:46 PM) 75 mm Hg (/22 4:26 AM) 95 mm Hg (6/3/2 2 8:33 PM) 83 mm Hg (6/3/2 2 12:34 AM) Resp Rate (Monitor) [13-20 Breaths/Min] 16 Breaths/Min (22 3:24 PM) 18 Breaths/Min (22 12:00 PM) 14 Breaths /Min (//22 4:00 AM) 16 Breath s/Min (6/5/2 2 7:00 PM) 18 Breath s/Min (6/5/2 2 4:21 PM) 18 Breath s/Min (6/5/2 2 8:00 AM) 18 Breath s/Min (6/5/2 2 4:00 AM) 18 Breath s/Min (6/4/2 2 8:46 PM) 18 Breath s/Min (6/4/2 2 4:02 PM) 16 Breath s/Min (6/4/2 2 8:11 AM) SPO2 [92 %] 100 % (22 3:24 PM) 100 % (22 12:00 PM) 95 % (/22 4:00 AM) 96 % (6/6/2 2 12:00 AM) 98 % (6/5/2 2 7:00 PM) 99 % (6/5/2 2 4:21 PM) 100 % (6/5/2 2 8:00 AM) 94 % (6/5/2 2 4:00 AM) 96 % (6/4/2 2 8:46 PM) 98 % (2 2 4:02 PM) Oxygen Method Room air (10/12/21 3:24 PM) Room air (10/12/21 12:00 PM) Room air (10/12/21 4:00 AM) Room air ( 2 12:00 AM) Room air (2 2 7:00 PM) Room air (2 2 4:21 PM) Room air (2 2 8:00 AM) Room air (2 2 4:00 AM) Room air (2 2 8:46 PM) Room air (2 2 4:02 PM) Glucose Level [80-115 mg/dL] 81 mg/dL (10/11/21 2:21 AM) 115 mg/dL (10/10/21 4:19 AM) 89 mg/dL (10/09/21 12:18 AM) 114 mg/dL ( 2 9:07 PM) Glucose (POCT) Automated [70-100 mg/dL] 102 mg/dL 1 *H* (10/12/21 12:29 PM) 83 mg/dL 2 (10/12/21 7:40 AM) 78 mg/dL 3 (10/12/21 5:48 AM) 91 mg/dL 4 (2 2 8:50 PM) 93 mg/dL 5 (2 2 5:34 PM) 132 mg/dL 6 *H* (2 2 12:26 PM) 108 mg/dL 7 *H* (2 2 7:40 AM) 179 mg/dL 8 *H* (2 2 8:41 PM) 280 mg/dL 9 *H* (2 2 6:17 PM) 182 mg/dL 10 *H* [...] PM) Yes (10/12/21 8:10 AM) 1Result Comment: Supervising Producer: [id number] CHANI CABAN 2Result Comment: Supervising Producer: [id number] ULISSES CHATMAN 3Result Comment: Supervising Producer: [id number] BHARATHI WHITMORE 4Result Comment: Supervising Producer: [id number] ARMANDO MURRAY 5Result Comment: Supervising Producer: [id number] MOLSTAD FABIOLA 6Result Comment: Supervising Producer: [id number] MOLSTAD FABIOLA 7Result Comment: Supervising Producer: [id number] CUONG GARNER 8Result Comment: Supervising Producer: [phone] TAO TRIPLETT 9Result Comment: Supervising Producer: [id number] 10Result Comment: Supervising Producer: [phone] Social History Social History Type Response Smoking [...] for Disease Control and Prevention (CDC): https://www.cdc.gov/tobacco/ [place] [employer]: https://www.cancer.org [place] Heart Association: https://www.heart.org Summary ??? Secondhand smoke [...] provider. Document Revised: 01/16/2020 Document Reviewed: 06/01/2018 [employer] Patient Education ?? 2021 Why Not Give Back. 10/12/2021 16:11:39 Fall Prevention in the Home, [...] night-lights. ??? Place frequently used items in aimu-ej-kopxf places. Lower the shelves around your home [...] the way. ??? Do not use floor romansh or wax that makes floors slippery. If [...] include working with a physical therapist or pet trainer to improve your strength, balance, and endurance. Where to find more information ??? Centers for Disease Control and Prevention, STEADI: https://www.cdc.gov ??? National [place] on Aging: https://ay8ljxy.jas.nih.gov Contact a health care provider if: ??? [...] provider. Document Revised: 04/07/2018 Document Reviewed: 12/08/2017 [employer] Patient Education ?? 2020 [employer] 10/12/2021 16:11:39 Confusion Confusion Confusion is [...] for help if needed. Medicines ??? Take pyxv-bhk-vanlyig and prescription medicines only as told by [...] consider day care, extended-care programs, or a longterm facility. The person's health care provider may [...] provider. Document Revised: 08/19/2020 Document Reviewed: 08/19/2020 [employer] Patient Education ?? 2021 Why Not Give Back. 10/12/2021 16:11:39 Failure to Thrive, Adult, Jqor-tt-Uemv Failure to Thrive, Adult Failure to thrive [...] Follow these instructions at home: ??? Take czui-oyp-wujxxzc and prescription medicines only as told by [...] provider. Document Revised: 12/26/2018 Document Reviewed: 12/26/2018 [employer] Patient Education ?? 2021 Why Not Give Back. 10/09/2021 03:12:03 Wound Care, Adult Wound Care, [...] and water are not available, use hand water quality tester. ??? Change your dressing as told by [...] by your health care provider. ??? Take tlus-ths-tvlgbpo and prescription medicines only as told by [...] provider. Document Revised: 02/08/2020 Document Reviewed: 02/08/2020 [employer] Patient Education ?? 2021 [employer] 10/09/2021 03:12:03 Fall Prevention in the Home, Adult, Ixys-la-Gkrg Fall Prevention in the Home, Adult Falls [...] Keep items that you use often in orki-ut-uvlxa places. Lower the shelves around your home [...] the way. ??? Do not use floor romansh or wax that makes floors slippery. What [...] Control and Prevention, STEADI: www.cdc.gov ??? National [place] on Aging: www.jas.nih.gov Contact a doctor if: [...] provider. Document Revised: 11/26/2020 Document Reviewed: 11/26/2020 [employer] Patient Education ?? 2021 [employer] 10/09/2021 03:12:03 Fall Prevention in Hospitals, Adult [...] If you or a loved one falls att hospital, it is important to tell hospital [...] ??? Talk with a physical therapist or pet trainer if recommended by your health care [...] provider. Document Revised: 04/07/2018 Document Reviewed: 12/07/2017 [employer] Patient Education ?? 2020 [employer] 10/09/2021 03:12:03 Hand Washing, Vyep-cp-Zulu Hand Washing Germs such as bacteria, viruses, [...] A mobile phone or other phone. ??? Sewer Connector or chemicals. ??? You touch or take [...] a hand-washing wipe, spray, or gel (hand water quality tester). Use one that has at least 60% [...] Reviewed: 09/01/2020 Else[employer] Patient Education ?? 2021 [employer] 10/09/2021 03:12:03 [facility] (Eng) Admission Orientation (Custom) [address] [address] Admission Orientation Welcome to the [facility]. Together we will work to [...] must dial ?? 0??? for the hospital tread tuber machine operator to help you. [email or web address] TELEVISION / SERVICE REQUESTS We are pleased to provide you with Bouju interactive televisions. [employer] offers CivilisedMoney movies, relaxation videos, educational programming, digital television and radio, and much more. You will find all the controls for the system located on your pillow speaker. Bouju can also be used to request services during your stay. You may change the temperature in your room, request housekeeping, report a mechanical problem, request the visit of a durability engineer, or provide us with your valuable feedback [...] the basis of race, color, national origin, methodist, sex, gender identity, sexual orientation, or disability. ??? You may designate a support person who will determine who may visit when you are unable or choose not to make that determination. This person may be different from your legal or healthcare power of ip attorney. ??? Visitation will be restricted if it interferes with your care, the care of other patients, or for infection control reasons. NUTRITION/MEALS Your safety, health and nutrition are very important to us.?? Our cafeteria has a wide selection offoods for your family and visitors.?? We encourage you to use our in-room meal services and not eatin the cafeteria.?? Our food service helper team is happy to work with you [...] care or safety, please speak to the horizontal drill operator or Drapery Estimator. ??? If they are unable to resolve your concern/complaint, you can call the [employer] Communication line at [phone] or go to the contact section of our website at Skyhood. ??? If your concerns are not satisfactorily resolved through the hospital, you may contact the [facility] or the Department of Matternet Services: ?? The Joint Commission: Mc or email ?? [place] [facility]: [address] [place] [address] Website: https://harley.Fiteeza.gov/ls/online_complaint/MEDComplaint.aspx FAMILY RAPID RESPONSE is a lifeline to immediate help when a patient or loved one feels the patient???s condition has worsened and the caregiver needs to provide additional, immediate medical attention. Dial [phone] from any hospital phone. PAIN MANAGEMENT Be [...] medicine and it is not working At [facility], we will work with you [...] them with alcohol-based hand sanitizers. Rub the water quality tester all over your hands, especially under your [...] rate ??? Shortness of breath FROM THE DRIVER EDUCATION INSTRUCTOR Spiritual Care Services providing emotional and spiritual support At [facility], we are committed to providing comprehensive care by embracing the whole person in body, mind and spirit. Board certified chaplains are available Tuesday - Tuesday 8 a.m.- 10:30 p.m. and 8 a.m. ??? 4:30 p.m. to all [...] advanced health care planning To contact a durability engineer, ask your nurse to call Spiritual Care Services Department: Vp Integration: [phone] Filling Station Equipment Mechanic: [phone] We???re here to support your shivani, beliefs [...] to have a stroke. ??? Sex: and Croatian [place]ian men have a higher risk. ??? Prior [...] agencies for smoking-cessation information or classes: ??? [facility] Tobacco Use Prevention Program- Telephone number: [phone] ??? [place] Smokers' Helpline:395.951.4238 or access via website: WWW.MediConnect Global (MCG).Secure-24 ??? [place] [employer] Association Telephone number: ([phone] ??? [place] [employer] Society Follow Up Care 10/08/2021 19:05:00 With:Nohemi Milton DO Address: [address] [place] [address] [address] [place] [address]- When:1 to 3 days
--- OUTSIDE RECORDS SUMMARY | 2023-11-11 09:19 | XMS_ITS | Continuity of Care Document ---
Author Organization [facility] ([facility]) Address [address] [address]- Care Team Providers Care Salesperson Shoes Name Role Phone PCP, No Primary Care Physician Unavailab le Encounter EVSA_FIN [id number] Date(s): 10/19/21 - 10/20/21 [facility] [address] [place], [place] [address] [phone] Encounter Diagnosis Altered mental status, unspecified(Discharge Diagnosis) - Discharge Disposition: Home or Self Care Attending Physician: Channing Odell MD Allergies, Adverse Reactions, Alerts No Known Medication Allergies Substance Reaction Severity Status [place] NAUSEA Mild Active Wheat Nausea Mild Active Medications Colace 100 mg, Liquid, PO, BID, Refills: 0, Maintenance Start Date: 10/27/21 Status: Ordered Pepcid 20 mg oral tablet 1 Tab Tab, PO, BID, Refills: 0, Maintenance Start Date: 10/27/21 Status: Ordered Senokot 17.2 mg, Tab, PO, qHS, Refills: 0, Maintenance Start Date: 10/27/21 Status: Ordered Problem List Condition Effective Dates Status Health Status Inform ant Chronic subdural hematoma(Confirmed) Active Social History Social History Type Response Smoking Status Never (less than 100 in lifetime) entered on: 10/09/21 Sex
--- OUTSIDE RECORDS SUMMARY | 2023-11-11 09:19 | XMS_ITS | Continuity of Care Document ---
Author Organization [facility] Address [address] [facility] [place] [address]- Care Team Providers Care Catapult And Arresting Gear Officer Name Role Phone PCP, No Primary Care Physician Unavailab le Encounter EVSA_FIN [id number] Date(s): 10/12/21 - 10/29/21 [facility] [address] [facility] [place] [address]- Encounter Diagnosis Acute intracranial hemorrhage(Discharge Diagnosis) - 10/15/21 Discharge Disposition: Home or Self Care Attending Physician: Jessica Leavitt MD Admitting Physician: Jessica Leavitt MD Allergies, Adverse Reactions, Alerts No Known Medication Allergies Substance Reaction Severity Status Parrott NAUSEA Mild Active Wheat Nausea Mild Active Assessment and Plan Extracted from: Title:Neuropsychology Consultation Author:Janneth Montenegro PsyD Date:10/16/21 Inpatient Neuropsychological Consultation Report Name: Saqib Banks : 1950 Sex: Female Age: 71 years Handedness: Right Education: 16 years Referring Physician: Jessica Leavitt MD Date of Evaluation: 10/14/2021& 10/16/2021 PROCEDURES: 12442 x 1 [id number] x 1 [phone] x 1 10/14/2021--Start time: 1:32 p.m. End [...] encephalopathy and concussion. The patient presented to [facility] after a GLF in which she [...] The patient? s son flew back to [place] on 10/14/2021. Current Symptoms: Cognitive: The patient [...] The patient was born and raised in [place]. The patient earned a bachelor? 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 The patient has 2 sons (1 resides in [place] and the other in [place]). The patient reportedly lived alone prior to the fall. Her son mentioned they were considering moving her to [place] to live in a 24-hour care facility [...] frequently on her son who resides in [place] and how he has a new baby [...] she was capable. Tests administered: Cognistat, Oral Blackburn Making Test-Parts A and B, Clock Drawing [...] issues persist following discharge. Taniya Cruz OTR/L ([phone]) is an occupational therapist with [facility] who specializes in memory compensation training for [...] in case of an emergency. 8. The [facility] has a Family Caregiver Support Program that provides case management, respite care, support groups and other assistance. They can perform a no cost in-home evaluation if deemed necessary. For more information, the patient? s family can call [phone] to ask for a referral for the Family Caregiver Support Program (www.[employer].org). 9. The patient was encouraged to increase participation in cognitively and socially stimulating activities. The patient may find word searches, puzzles, crosswords, or handheld games enjoyable, which can be found at a local [employer] store. Reminiscing activities can also be pleasurable for individuals. For instance, focusing on pleasant activities/events from one? s past, such as significant events (best birthday, weddings, etc.), favorite memories from each season, favorite place to vacation, school days, sports, are topics to consider among others. [facility] is a [employer] that provides in-home services for cognitive stimulation and counseling needs (www.[employer]; ). 10. The patient may consider participating in individual psychotherapy if they find they are having a difficult time managing depression and anxiety related to any possible lifestyle adjustments/disability. b. [facility] ([facility]) can provide such services and accepts most insurance plans including Medicare. i. [phone] 11. The patient is encouraged to continue participation in cognitively and socially stimulating activities for overall health and well-being. 12. The patient? s son stated he plans to fly the patient out to [place] and was inquiring about medical clearance to [...] the following resources helpful: n. [facility] www.[facility].org 15. A follow up neuropsychological evaluation 3-6 months post discharge may be considered if cognitive issues persist. [facility] ([phone]) provide such services in [place], [place]. 16. I will follow up with this patient, during the patient's inpatient stay, on an as needed basis. Thank you for including me in the care of this patient. Janneth Guajardo Psy.D., Clinical Neuropsychologist Extracted from: Title:Neuro Consultation Author:Claudia Minor MD Date:10/15/21 Impression and Plan Diagnosis Diagnosis . Acute intracranial hemorrhage ([id number] I62.9, Discharge, Medical). Plan: 1. Subdural Hematoma [...] list: All Problems Chronic subdural hematoma / [id number] / Confirmed Canceled: Past medical history unknown / [id number]. Extracted from: Title:Neuropsychology Encounter Author:Janneth Guajardo PsyD [...] patient. Janneth Guajardo Psy.D., Clinical Neuropsychologist Medications Ativan 0.5 mg oral tablet 1 Tab Tab, PO, Daily, PRN, as needed for anxiety, 5 Day, Qty: 5 Tab, Refills: 0, 11/02/21 20:34:00 MST, Acute, Route to Pharmacy Electronically, [id number] Start Date: 10/28/21 Stop Date: 11/02/21 Status: Ordered Colace 100 mg oral capsule 1 Cap Cap, PO, BID, PRN, as needed for constipation, Qty: 20 Cap, Refills: 0, Maintenance, Route toPharmacy Electronically, [id number] Start Date: 10/28/21 Status: Ordered Pepcid 20 mg oral tablet 1 Tab Tab, PO, BID, Qty: 60 Tab, Refills: 0, Maintenance, Route to Pharmacy Electronically, [id number] Start Date: 10/28/21 Status: Ordered Problem [...] AM) 1.1 thousand/uL (10/13/21 5:06 AM) ABS [place] [0.0-1.6 thousand/uL] 0.3 thousand/uL (10/27/21 6:12 AM) [...] AM) 138 mmol/L (10/13/21 5:06 AM) Specific [place]bee [1.008-1.020] 1.006 *L* (10/20/21 1:58 AM) 1.011 [...] ( 2 6:00 PM) 37.0 deg C (6/15/2 2 6:00 PM) 37.1 deg C (10/20/2 2 6:00 PM) 36.7 deg C (10/20/2 2 5:00 AM) 37 deg C (10/19/2 2 5:00 AM) Heart Rate [51-119 bpm] 68 bpm (10/29/21 7:00 AM) 89 bpm (2 2 6:00 PM) 62 bpm (2 2 6:00 AM) 81 bpm (10/27/2 2 7:28 PM) 59 bpm (10/27/2 2 7:00 AM) 92 bpm (2 2 6:00 PM) 72 bpm (2 2 6:00 AM) 76 bpm (2 2 10:05 PM) 91 bpm (2 2 6:00 PM) 67 bpm ( 6:00 AM) Blood Pressure [91-139/51-89 mm Hg] 104/52mm Hg (10/29/21 7:00 AM) 94/58mm Hg (10/28/2 2 6:00 PM) 115/67m m Hg (10/28/2 2 6:00 AM) 111/66m m Hg (10/27/2 [...] (10/25/2 2 6:00 PM) 16 Breaths /Min (10/25/2 2 6:00 AM) 20 Breath s/Min ( 6:20 PM) SPO2 [92 %] 98 % (10/29/21 7:00 AM) 94 % (2 2 6:00 PM) 98 % (2 2 6:00 AM) 96 % (2 2 7:28 PM) 99 % (2 2 7:00 AM) 96 % (2 2 6:00 PM) 98 % (2 2 6:00 AM) 95 % (2 2 6:00 PM) 98 % (2 2 6:00 AM) 98 % ( 6:20 PM) Oxygen Method Room air (10/27/21 7:28 PM) Room air (10/25/2 2 10:05 PM) Room air (10/24/2 2 5:00 AM) Room air (10/20/2 2 5:00 AM) Room air (2 2 6:00 PM) Room air (2 2 5:00 AM) Room air (2 2 8:00 PM) Room air (2 2 5:00 AM) Room air ( 2 6:00 PM) Room air ( 5:00 AM) Glucose Level [70-99 mg/dL] 82 mg/dL (10/27/21 6:12 AM) 73 mg/dL (10/20/2 2 4:31 AM) 78 mg/dL (10/13/21 5:06 [...] Instructions Patient Education 10/29/2021 12:47:30 Stroke Prevention, Iprl-te-Keal Stroke Prevention Some medical conditions and lifestyle [...] ??? Biking. ??? Swimming. Medicines ??? Take jhpc-ihc-atvoqmo and prescription medicines only as told by your doctor. ??? Avoid taking control pills. Talk to your doctor about the risks of taking control pills if: ??? You are over 35 years old. ??? You smoke. ??? You get very bad headaches. ??? You have had a blood clot. Where to find more information ??? [place] Stroke Association: www.strokeassociation.org Get help right away [...] away. Call your local emergency services (911 int [place] ??? Do not wait to see [...] provider. Document Revised: 11/24/2020 Document Reviewed: 11/24/2020 [employer] Patient Education ?? 2021 [employer]. 10/29/2021 12:47:27 Hand Washing, Okni-de-Shfn Hand Washing Germs such as bacteria, viruses, [...] A mobile phone or other phone. ??? [employer] Polisher Helper or chemicals. ??? You touch or take [...] a hand-washing wipe, spray, or gel (hand assistant professor surgical technology). Use one that has at least 60% [...] provider. Document Revised: 09/01/2020 Document Reviewed: 09/01/2020 [employer] Patient Education ?? 2021 [employer]. 10/29/2021 12:47:26 Fall Prevention in the Home, Adult, Vxqs-nx-Yvqg Fall Prevention in the Home, Adult Falls [...] Keep items that you use often in ljbt-cz-piczn places. Lower the shelves around your home [...] the way. ??? Do not use floor zimbabwean or wax that makes floors slippery. What [...] Control and Prevention, STEADI: www.cdc.gov ??? National Valentines on Aging: www.jas.nih.gov Contact a doctor if: [...] provider. Document Revised: 11/26/2020 Document Reviewed: 11/26/2020 [employer] Patient Education ?? 2021 [employer] Follow Up Care 10/12/2021 17:33:56 With:Clinic Follow up Address:Unknown When:1 to 3 days Comments:neurology With:Follow up with primary care provider Address:Unknown When:1 to 3 days
[2023-11-11 09:55] LABS: MANUAL DIFF FLAG NO
[2023-11-11 09:57] LABS: Basophils Percent Auto 0.4 % (0-2); Eosinophils Absolute Auto 0.1 X10*3/uL (0.0-0.4); Eosinophils Percent Auto 0.7 % (0-4); Hematocrit 41.2 % (37.0-47.0); Hemoglobin 13.8 g/dl (12.0-16.0); Imm Gran Abs Auto 0.02 X10*3/uL (0.00-0.03); Imm Gran Pct Auto 0.3 % (0.0-0.4); Lymphocytes Absolute Auto 1.3 X10*3/uL (1.2-4.9); Lymphocytes Percent Auto 17.7 % (20-40); Mean Corpuscular HGB Conc 33.5 g/dl (31.0-35.0); Mean Corpuscular Hemoglobin 29.9 pg (27.0-33.0); Mean Corpuscular Volume 89.2 fL (80.0-98.0); Mean Platelet Volume 10.2 fL (9.4-12.3); Monocytes Absolute Auto 0.3 X10*3/uL (0.1-1.2); Monocytes Percent Auto 4.3 % (2-11); Neutrophils Absolute Auto 5.7 x10*3/uL (2.0-8.3); Neutrophils Percent Auto 76.6 % (45-73); Platelet Count 246 X10*3/uL (160-400); Red Blood Count 4.62 X10*6/uL (4.20-5.50); Red Cell Distribution Width 12.2 % (11.0-16.0); White Blood Count 7.4 X10*3/uL (4.8-10.8)
[2023-11-11 10:19] LABS: Alanine Aminotransferase 12 U/L (0-31); Albumin Level 4.1 g/dL (3.5-5.0); Alkaline Phosphatase 94 U/L (39-117); Anion Gap 12 (12-20); Aspartate Amino Transferase 16 U/L (5-31); Bilirubin Total 0.5 mg/dL (0.0-1.0); Blood Urea Nitrogen 13 mg/dL (9-16); Calcium 9.3 mg/dL (8.4-10.2); Carbon Dioxide 26 mmol/L (22-29); Chloride 106 mmol/L (96-108); Creatinine Clr Calc Pharmacy 63.6; Estimated Glomerular Filt Rate > 60; Glucose Random 95 mg/dL (60-115); Lipase 17 U/L (8-78); Sodium 140 mmol/L (135-145); Total Protein 7.1 g/dL (6.5-8.0)
[2023-11-11 10:20] LABS: Appearance Urine Clear; Color Urine Yellow; Glucose Urine UA Negative (Negative); Leukocyte Esterase Urine Negative (Negative); Nitrite Urine Negative (Negative); PH 5.5 (5.0-9.0); Urine Blood Negative (Negative); Urine Ketones 40 mg/dL (Negative); Urine Protein Negative (Neg-Trace)
[2023-11-11 11:23] VITALS: BP 108/65; PULSE 75; RESP 15; TEMP 36.8; O2SAT 98
--- NOTE | 2023-11-11 11:47 | PC.NURSE ---
patient son at bedside, will be bringing patient back to living facility, pateint did not arrive with pants, provided with pair of hosptial pants and brief
[2023-11-11 12:04] VITALS: BP 108/65; PULSE 75; RESP 15; TEMP 36.8; O2SAT 96
== END 2023-11-11 12:05 | disposition home or self-care (01) ==
PROVIDERS: Emergency Provider Emergency Medicine Emergency Medical Services; PCP Family Medicine
DX: S06.5XAA Traumatic subdural hemorrhage with loss of consciousness status unknown, initial encounter (principal); W19.XXXA Unspecified fall, initial encounter; Y93.9 Activity, unspecified; Y92.122 Bedroom in nursing home as the place of occurrence of the external cause; Y99.9 Unspecified external cause status
CPT/HCPCS: 36415; 70450; 72125; 80053; 81003; 82550; 83690; 85025; 93005; 99285

== ENCOUNTER → 2023-11-11 09:13 | Outpatient (BNV) | payer MEDICARE, SELFPAY | PROVIDERS: Emergency Provider Emergency Medicine Emergency Medical Services; PCP Family Medicine; Visit Provider Internal Medicine | DX: R55 Syncope and collapse (principal) | CPT/HCPCS: 93010 ==